=== PATIENT | female | born 1945 | race Asian ===

== ENCOUNTER 2024-09-30 23:17 | Inpatient (IN) | payer MEDICARE, SELFPAY ==
[2024-09-30] VITALS (7 sets, daily range): BP systolic 100–150; BP diastolic 56–85
[2024-09-30] MEDS: MORPHINE SULFATE 2 MG IV (21:24)
[2024-09-30 21:27] LABS: % Basophils 0.2 % (0-2); % Eosinophils 1.5 % (0-6); % Immature Granulocytes 0.2 % (0-0.5); % Lymphocytes 34.8 % (20.5-51.1); % Monocytes 7.9 % (1.7-9.3); % Neutrophils 55.4 % (42.2-75.2); Absolute Eosinophils 0.1 10^3/uL (0-0.7); Absolute Lymphocytes 1.7 10^3/uL (1.2-3.4); Absolute Monocytes 0.4 10^3/uL (0.1-0.6); Absolute Neutrophils 2.7 10^3/uL (1.4-6.5); Hematocrit 29.6 % (37.0-47.0); Hemoglobin 9.8 g/dL (12.0-16.0); Mean Corp Hgb Conc. 33.1 g/dL (33.0-37.0); Mean Corpuscular Hgb 29.9 pg (27.0-31.0); Mean Corpuscular Volume 90.2 fL (81.0-99.0); Mean Platelet Volume 9.1 fL (7.4-10.4); Nucleated Red Blood Cells % 0 %; Platelet Count 188 10^3/uL (130-400); Red Blood Cell Count 3.28 10^6/uL (4.20-5.40); White Blood Cell Count 4.8 10^3/uL (4.8-10.8)
[2024-09-30] MEDS: ZOFRAN 4 MG IV (21:29)
[2024-09-30 21:37] LABS: APTT 31.5 Sec (23.4-35.0)
[2024-09-30 21:42] LABS: ALT (SGPT) 19 U/L (0-35); AST (SGOT) 54 U/L (14-36); Albumin 3.9 g/dl (3.5-5.0); Alkaline Phosphatase 70 U/L (38-126); Blood Urea Nitrogen 22 mg/dl (7-17); Carbon Dioxide 29 mmol/L (22-30); Chloride 102 mmol/L (98-107); Glucose 153 mg/dl (70-99); Potassium 3.9 mmol/L (3.5-5.1); Sodium 138 mmol/L (135-145); Total Bilirubin 0.4 mg/dl (0.2-1.3); Total Protein 6.8 g/dl (6.3-8.2); eGFR > 60.00
--- NOTE | 2024-09-30 21:55 | ED.GENMED ---
History of Present Illness
General
Chief Complaint: Chest Pain
Source: patient and family
Exam Limitations: none
Time Seen by Provider: 09/30/24 21:30
Nursing documentation reviewed up to this point in time: agreed with
History of Present Illness
History of Present Illness:
Late entry seen immediately upon presentation 79-year-old female via EMS presents with chest pain arnold juárez that started around dinnertime, EMS report to RN was that had a normal EKG but was given nitroglycerin, seen in our triage room, had an
EKG that showed ST segment elevation I evaluated the patient urgently, STEMI alert was called initially pain was 10 out of 10 EMS and given 325 of aspirin administered Brilinta and heparin, arnold Osorio acting as a junior project manager has been a lot of
stress in the family due to cancer diagnosis for Devon's mother the patient's daughter, the patient herself has a history of colorectal cancer status post resection
Past History
Past History
ED Past Medical History: HTN, Hypercholesterolemia and Other (oral CA)
ED Past Surgical History: Bowel resection
Patient has exhibited threatening behavior?: No
PSI?: No
Social History
Tobacco: Non-smoker
Alcohol: Other
Drug: None
Personal:
Living: with family
Employment: Retired
Family History
Family History: Other (HTN)
Review of Systems
Review of Systems
All Other Systems: Not applicable
Cardiac: Reports chest pain
Phy Exam
Physical Exam
Physical Exam:
Physical Exam
General: Ill-appearing female
Neck: No jaundice
Heart: s1/s2 regular rate and rhythm, no murmur. equal radial pulses.
Lungs: no acute respiratory distress. clear bilaterally
Abdomen: Nontender
Neuro: alert and oriented. no focal neurological deficits
Skin: no rash
Psychiatric: well kept. interactive and cooperative
Extremities: no edema.
Scores
Heart Score for Chest Pain Patients
STEMI patient?: Yes
Course
Orders/Labs/Results
Orders:
Orders
09/30/24 21:09
Electrocardiogram (*1) Urgent
Reason for Study: Chest Pain
Cardiac Monitoring- Treatment ONCE
EKG- Treatment ONCE
IV Insert/Care/Rem.- Treatment PRN
O2 Therapy [RESP] Urgent
Titrate/Wean O2 to maintain O2 sat greater than (%): 90
Special Instructions: Maintain sats >/=90%
Pulse Ox/spot Check [RESP] Urgent
Quantity: 1
Special Instructions: ON ROOM AIR
09/30/24 21:20
Complete Blood Count/With Diff Urgent
Comprehensive Metabolic Panel Urgent
Troponin I Urgent
09/30/24 21:22
PTT Urgent
09/30/24 21:23
Morphine Sulfate 2 mg .ROUTE .STK-MED ONE
09/30/24 21:24
Morphine Sulfate 2 mg IV NOW STA
09/30/24 21:27
Ondansetron Injectable [Zofran] 4 mg .ROUTE .STK-MED ONE
09/30/24 21:28
Ondansetron Injectable [Zofran] 4 mg IV NOW STA
09/30/24 21:36
Type And Crossmatch [Type+Screen] Urgent
09/30/24 21:38
Midazolam HCl [Versed] 2 mg .ROUTE .STK-MED ONE
Verapamil Injectable [Isoptin/Verapamil Injection] 5 mg .ROUTE .STK-MED ONE
09/30/24 21:39
Fentanyl Citrate/Pf [Sublimaze] 100 mcg .ROUTE .STK-MED ONE
Heparin 10,000 units .ROUTE .STK-MED ONE
Heparin 1000 Units/500 ml [Heparin] 1,000 units in 500 ml .ROUTE .STK-MED
Heparin Sodium,Porcine/Ns/Pf [Heparin 2000 Units/1000 ml] 2,000 unit in 1,000 ml .ROUTE .STK-MED
Lidocaine HCl/Pf [Xylocaine-Mpf 1% Vial] 50 mg .ROUTE .STK-MED ONE
09/30/24 21:40
Nitroglycerin [Tridil] 1,500 mcg .ROUTE .STK-MED ONE
Abnormal Lab Results
09/30/24
21:20
RBC 3.28 L 10^6/uL
(4.20-5.40)
Hgb 9.8 L g/dL
(12.0-16.0)
Hct 29.6 L %
(37.0-47.0)
BUN 22 H mg/dl
(7-17)
Glucose 153 H mg/dl
(70-99)
AST 54 H U/L
(14-36)
Troponin I 1.540 H* ng/ml
09/30/24 21:20
09/30/24 21:20
Vital Signs
Initial and Last Documented VS:
Initial Vital Signs
Temp Pulse Resp BP Pulse Ox
97.5 F 66 16 149/85 97
09/30/24 21:01 09/30/24 21:01 09/30/24 21:01 09/30/24 21:01 09/30/24 21:01
Last Documented Vital Signs
Temp Pulse Resp BP Pulse Ox
97.5 F 64 21 140/67 100
09/30/24 21:01 09/30/24 21:30 09/30/24 21:30 09/30/24 21:30 09/30/24 21:30
MDM/Problems Addressed
Differential Diagnosis Includes:
TN, stress-induced angina, LV aneurysm
*Pulse Oximetry
Patient hypoxic: no
*EKG
Interpreted by ED Provider?: Yes
Interpretation: abnormal
Comparison EKG: no comparison EKG present
Heart Rate: 70
Rate: normal
Rhythm: sinus
Ischemia: ST elevation
*Mophead Trimmer And Wrapper Interpretation
Rate: normal
Interpretation: normal
Heart Rate: 70
Rhythm: sinus
*Critical Care Note
Total Time (30-74mins, 75-104mins- exclusive of procedures): 30
ED Attending Note
-
Portions of this chart may have been created with voice recognition software.� Occasional wrong word or��sound alike� substitutions may have occurred due to the inherent limitations of voice recognition software.
Discharge Plan
Departure
Prescriptions:
No Action
atorvastatin [Lipitor] 40 mg Tablet
40 mg PO DAILY
losartan 50 mg Tablet
50 mg PO DAILY Qty: 30 0RF
Referrals:
UNKNOWN - PT NOT,INTERVIEWE [Family Provider] -
Interventions
Interventions:
*Risk Screen - Suicide Last Done: 09/30/24 21:01
*General Assessment Last Done: 09/30/24 21:01
*Neglect/Abuse Screening Last Done: 09/30/24 21:01
*ED COVID-19 Vaccine History Last Done: 09/30/24 21:01
ED- Cardiac Assessment Last Done: 09/30/24 21:27
Discharge Date and Time
Print Language: UPPER SORBIAN
[2024-09-30 22:03] LABS: ACT-LR - POC 207 Seconds (116-155)
[2024-09-30 22:12] LABS: ACT-LR - POC 303 Seconds (116-155)
[2024-09-30 22:23] LABS: ACT-LR - POC 287 Seconds (116-155)
[2024-09-30 22:47] LABS: ACT-LR - POC 334 Seconds (116-155)
[2024-09-30 22:57] LABS: ACT-LR - POC 292 Seconds (116-155)
--- NOTE | 2024-09-30 23:11 | ITS.CL.CATH ---
Braiding Machine Tender - Catheterization
Cardiac Catheterization
Procedure Report:
LEFT HEART CATHETERIZATION
Date of Procedure: September 30, 2024
Referring: [place] emergency department
PROCEDURES:
1. Left heart catheterization, coronary angiogram.
2. Ultrasound-guided access.
3. Successful percutaneous coronary artery intervention of 2 serial 80 to 90% hazy stenoses in mid and distal OM2 (MARY II flow) with one 3.0 x 38 mm Medtronic Marcelo frontier drug-eluting stent, postdilated with a 3.0 x 20 mm NC balloon at 16 reddy
distally and 18 reddy proximally with an excellent angiographic result and MARY-3 flow restored into the distal vessel.
INDICATION: Patient is a 79-year-old Faroese speaking female with past medical history of hypertension, hyperlipidemia, prior history of transverse colon mass with admission in October 2023 with symptomatic microcytic anemia and acute blood loss
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
adenocarcinoma who presents today with acute onset chest pain after dinner found to have inferior ST elevations with ST depressions in V1 and V2 for which heart catheterization team was emergently activated. Patient received 2 sublingual
nitroglycerin, 325 mg of aspirin, 180 mg of Brilinta and 4000 units of unfractionated IV heparin in the emergency department prior to presentation up to the heart catheterization lab. Her daughter was recently diagnosed with stomach and bladder
cancer and is undergoing treatments for this and therefore patient has been under tremendous amount of stress and presents here today with her grand son. Emergent consent was obtained reviewing the risk and benefits of the procedure and patient was
emergently brought up to the heart catheterization lab.
ACCESS: Right radial artery, 6 Cameroonian sheath, under ultrasound guidance.
HEMODYNAMICS : (mmHg)
AO (s/d) : 120/64
LV (s/d) : 121/13
LVEDP : 28
CORONARY FINDINGS: Heavily calcified coronary arteries.
DOMINANCE: Right
LEFT MAIN: Left main artery is a large-caliber vessel with 30 to 40% distal tapering giving rise to the LAD as well as the left circumflex artery.
LEFT ANTERIOR DESCENDING: The LAD is a medium to large caliber vessel which gives rise to 3 major diagonal branches as it courses through the anterior interventricular groove and wraps around the apex. Ostial LAD has an eccentric 70% stenosis.
Mid LAD has calcified diffuse up to 70 to 80% stenosis at the level of the takeoff of D2. D2 has a 99% ostial stenosis with probable chronic total occlusion in the proximal portion with left to left collaterals but is a small caliber vessel.
CIRCUMFLEX: The left circumflex artery is a medium caliber vessel which gives rise to 2 major obtuse marginal branches. OM1 is a small caliber branch. OM 2 is a large-caliber branch with 2 serial hazy, thrombotic 80 to 90% stenosis with MARY II
flow which is thought to be the culprit of presenting ACS. There is 50 to 60% eccentric ostial left circumflex artery stenosis.
RIGHT CORONARY ARTERY: The right coronary artery is a medium to large caliber vessel, dominant which gives rise to the right posterior descending artery and the right posterolateral system. There is mild to moderate diffuse plaque in the proximal
to mid RCA.
CORONARY INTERVENTION: Given significant disease involving the ostial LAD and the left circumflex, discussion was had with senior interventional partner, Dr. Reginald Porter as well as CT surgeon on-call, Dr. John Torrez about patient's presenting
symptoms and past medical history including significant frailty with advanced age. We did not think that patient would be a good candidate for consideration for CABG and therefore decision was made to proceed with percutaneous coronary artery
intervention to mid and distal OM 2 which were thought to be the culprit lesions for presenting ACS. Additional heparin was given to maintain a therapeutic ACT throughout the case. The left coronary artery was selectively engaged using a 6 Cameroonian
EBU 3.5 guide catheter. A 190 cm 0.014' run-through coronary wire was utilized and carefully navigated across these 2 lesions into the distal vessel. The lesions were predilated using a 2.5 x 15 mm semicompliant balloon using multiple inflations
with good expansion at 14 reddy. The lesions were then subsequently stented with one 3.0 x 38 mm Medtronic Marcelo frontier drug-eluting stent, postdilated with a 3.0 x 20 mm NC balloon at 16 reddy distally and 18 reddy proximally with an excellent
angiographic result and MARY-3 flow restored into the distal vessel. Patient tolerated the procedure well with no acute complications. She had already received 180 mg of Brilinta in the emergency department.
SEDATION: 58 minutes of procedural sedation was utilized. An independent clinical medical transcriptionist was present to assist with and help manage the patient's level of consciousness and physiologic status.
RADIATION SUMMARY: Fluoro Time (min): 6.8, Dose (mGy): 214.05, DAP (Gy.cm2) : 1.276
Closure Device: Vascular band over right radial artery, 10 cc of air.
CONCLUSIONS
1. Heavily calcified left-sided coronary arteries.
2. Successful percutaneous coronary artery intervention of 2 serial 80 to 90% hazy stenoses in mid and distal OM2 (MARY II flow) with one 3.0 x 38 mm Medtronic [place] frontier drug-eluting stent, postdilated with a 3.0 x 20 mm NC balloon at 16 reddy
distally and 18 reddy proximally with an excellent angiographic result and MARY-3 flow restored into the distal vessel.
3. Ostial LAD has an eccentric 70% stenosis. Mid LAD has calcified diffuse up to 70 to 80% stenosis at the level of the takeoff of D2. D2 has a 99% ostial stenosis with probable chronic total occlusion in the proximal portion with left to left
collaterals but is a small caliber vessel.
4. There is 50 to 60% eccentric ostial left circumflex artery stenosis.
5. Significantly elevated LVEDP at 28 mmHg.
RECOMMENDATIONS
1. Dual antiplatelet therapy with daily baby aspirin and Brilinta 90 mg twice daily, high intensity statin and beta-benoit as tolerated.
2. Wean radial band per protocol.
3. Echocardiogram to assess biventricular function and rule out any significant valvular abnormalities.
4. Aggressive management of cardiovascular risk factors.
5. Referral for outpatient cardiac rehab
6. We will have CT surgery weigh in if patient would be a candidate for a robotic GUILLEN to LAD to achieve full revascularization in the near future versus medical therapy only.
Esha Collins MD, FACC, [facility]
--- NOTE | 2024-09-30 23:25 | HPS.HSE ---
Family Physician
-
Family Physician: INTERVIEWE UNKNOWN - PT NOT
Chief Complaint
-
Chest Pain
History of Present Illness
Patient is a 79-year-old Belarusian speaking female with past medical history of hypertension, hyperlipidemia, prior history of transverse colon mass with admission in October 2023 with symptomatic microcytic anemia and acute blood loss anemia thought
to be secondary to a GI source from this mass needing 5 units of PRBC transfusion status post robotic extended right colectomy with isoperistaltic intracorporeal anastomosis with path report subsequently positive for invasive colonic adenocarcinoma
who presents today with acute onset chest pain after dinner found to have inferior ST elevations with ST depressions in V1 and V2 for which heart catheterization team was emergently activated. Patient received 2 sublingual nitroglycerin, 325 mg of
aspirin, 180 mg of Brilinta and 4000 units of unfractionated IV heparin in the emergency department prior to presentation up to the heart catheterization lab. Her daughter was recently diagnosed with stomach and bladder cancer and is undergoing
treatments for this and therefore patient has been under tremendous amount of stress and presents here today with her grand son. Emergent consent was obtained reviewing the risk and benefits of the procedure and patient was emergently brought up to
the heart catheterization lab.
Medical History
Past Medical History
Past Medical History: Reports Cancer, HTN and Hypercholesterolemia
Past Surgical History: Reports Other (colectomy)
Additional Past Surgical History:
colectomy
Social History
Unable to obtain full social history at this time due to: Language Barrier
Tobacco: Non-smoker
Alcohol: None
Drug: None
Personal:
Living: With Family
Employment: Retired
Family History
Family History: Not pertinent
Allergies / Home Medications
Allergies reflects when Allergies were last updated in [employer].
Home Medications with original date entered in [employer]
Allergy/Medication List:
NKDA
Telmisartan-HCTZ 40-12.5mg daily
Atorvastatin 40mg daily
Review of Systems
-
A 12 point ROS was completed and negative except as noted: Yes
Physical Exam
Vital Signs
Vital Signs
Temp Pulse Resp BP Pulse Ox
97.5 F 68 26 136/74 96
09/30/24 21:01 09/30/24 21:45 09/30/24 21:45 09/30/24 21:36 09/30/24 21:45
Physical Exam
General: Well Developed, Appears Chronically Ill, Cachectic and Other (Thin, frail, pale)
HEENT: Moist mucous membranes
Respiratory: Rales and Decreased Breath Sounds
Cardiac: S1/S2, Regular Rhythm, JVD and HJR; No Murmur, Rub, Gallop or Peripheral Edema
GI: Soft, Non Tender, Non Distended and Normal Bowel Sounds
Genito-urinary: Deferred by me
Musculoskeletal: No Clubbing, No Cyanosis and No Edema
Skin: Warm and Dry
Neuro: AO x 3 and Other (Nauseated)
Psych: Calm and Anxious
Laboratory Results
-
09/30/24 21:20
09/30/24 21:20
Laboratory Results
APTT 31.5 Sec (23.4-35.0) 09/30/24 21:22
Total Bilirubin 0.4 mg/dl (0.2-1.3) 09/30/24 21:20
AST 54 U/L (14-36) H 09/30/24 21:20
ALT 19 U/L (0-35) 09/30/24 21:20
Alkaline Phosphatase 70 U/L (38-126) 09/30/24 21:20
Troponin I 1.540 ng/ml H* 09/30/24 21:20
Data Reviewed
-
Critical Care Time (in minutes): 65
Diagnostic Radiology: Report Reviewed by me
CT Scan: Report Reviewed by me
Ultrasound: Report Reviewed by me
Medical Tests (Nuc Med, Echo, EKG etc): Image Personally Visualized and interpreted
Lab Data: Labs Reviewed by me, Discussed with Physician, Discussed with Nurse, Discussed with Patient and Discussed with Family
Old Records: Reviewed
Impression/Plan
-
IMPRESSION: Patient is a 79-year-old Belarusian speaking female with past medical history of hypertension, hyperlipidemia, prior history of transverse colon mass with admission in October 2023 with symptomatic microcytic anemia and acute blood loss
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
adenocarcinoma who presents today with acute onset chest pain after dinner found to have inferior ST elevations with ST depressions in V1 and V2
Assessment:
Hypertension
Hyperlipidemia
transverse colon mass, status post robotic extended right colectomy with isoperistaltic intracorporeal anastomosis with path report subsequently positive for invasive colonic adenocarcinoma
Acute blood loss anemia thought to be secondary from GI source, 5u pRBC transfusion
Hyponatremia
Influenza A in Oct 2023 s/p Tamiflu
Mild protein calorie malnutrition
CATH 09/30/24
1. Heavily calcified left-sided coronary arteries.
2. Successful percutaneous coronary artery intervention of 2 serial 80 to 90% hazy stenoses in mid and distal OM2 (MARY II flow) with one 3.0 x 38 mm Medtronic Marcelo frontier drug-eluting stent, postdilated with a 3.0 x 20 mm NC balloon at 16 reddy
distally and 18 reddy proximally with an excellent angiographic result and MARY-3 flow restored into the distal vessel.
3. Ostial LAD has an eccentric 70% stenosis. Mid LAD has calcified diffuse up to 70 to 80% stenosis at the level of the takeoff of D2. D2 has a 99% ostial stenosis with probable chronic total occlusion in the proximal portion with left to left
collaterals but is a small caliber vessel.
4. There is 50 to 60% eccentric ostial left circumflex artery stenosis.
5. Significantly elevated LVEDP at 28 mmHg.
PLAN:
1. Dual antiplatelet therapy with daily baby aspirin and Brilinta 90 mg twice daily, high intensity statin and beta-benoit as tolerated.
2. Wean radial band per protocol.
3. Echocardiogram to assess biventricular function and rule out any significant valvular abnormalities.
4. Aggressive management of cardiovascular risk factors.
5. Referral for outpatient cardiac rehab
[2024-09-30] MEDS: CRESTOR 20 MG PO (23:48)
[2024-10-01] VITALS (10 sets, daily range): BP systolic 96–120; BP diastolic 54–72; BMI 18.5; BMI 18.3
--- NOTE | 2024-10-01 00:40 | PTCARENOTE ---
Pt received from labor utilization superintendent R radial band in place. SB/SR on the monitor 40s-60s. Pt speaks Turkmen- Grandson Devon at bedside to help with translation as well as the language line. No active CP at this time reported by pt. Plan of care discussed pt
verbalized understanding. ambulating as a stand by assist to the bathroom. Call cooper within reach.
--- NOTE | 2024-10-01 05:29 | PTCARENOTE ---
band off after some oozing noted during the air removal process- air replaced and continued removal without issues. + pulse. Site CDI with ecchy. Pt and grandson made aware this is normal discoloration.
[2024-10-01 05:37] LABS: % Basophils 0.2 % (0-2); % Eosinophils 0.5 % (0-6); % Immature Granulocytes 0.3 % (0-0.5); % Lymphocytes 6.4 % (20.5-51.1); % Monocytes 4.5 % (1.7-9.3); % Neutrophils 88.1 % (42.2-75.2); Absolute Lymphocytes 0.4 10^3/uL (1.2-3.4); Absolute Monocytes 0.3 10^3/uL (0.1-0.6); Absolute Neutrophils 5.6 10^3/uL (1.4-6.5); Mean Corp Hgb Conc. 33.3 g/dL (33.0-37.0); Mean Corpuscular Volume 90.1 fL (81.0-99.0); Mean Platelet Volume 9.5 fL (7.4-10.4); Nucleated Red Blood Cells % 0 %; Platelet Count 171 10^3/uL (130-400); Red Blood Cell Count 3.33 10^6/uL (4.20-5.40); White Blood Cell Count 6.4 10^3/uL (4.8-10.8)
[2024-10-01 05:49] LABS: Blood Urea Nitrogen 19 mg/dl (7-17); Calcium 8.6 mg/dl (8.4-10.2); Carbon Dioxide 29 mmol/L (22-30); Chloride 103 mmol/L (98-107); Estimated Creatinine Clearance 41 ml/min; Glucose 111 mg/dl (70-99); HDL Cholesterol 51 mg/dl; LDL Cholesterol, Calculated 57 mg/dl; Potassium 3.4 mmol/L (3.5-5.1); Sodium 140 mmol/L (135-145); Total Cholesterol 123 mg/dl (50-199); Triglyceride 76 mg/dl (10-149); Very Low Density Lipoprotein 15 mg/dl (0-30); eGFR > 60.00
[2024-10-01] MEDS: KCL 40 MEQ PO (08:10)
[2024-10-01] MEDS: LOW STRENGTH ASPIRIN 81 MG PO (08:10)
[2024-10-01] MEDS: BRILINTA 90 MG PO ×2 (08:11→19:49)
[2024-10-01] MEDS: HEPARIN 5000 UNITS SC ×2 (08:11→19:49)
[2024-10-01 08:27] LABS: Glycohemoglobin (HgbA1c) 5.5 % (4.0-5.6)
--- NOTE | 2024-10-01 09:10 | W.PN.CARDCBS ---
Addendum entered and electronically signed by Esha Collins MD 10/01/24 15:41:
I saw and examined the patient.
The Product Safety Engineer's note was reviewed and I agree with the note.
Comment: Patient is doing well this morning and does not offer any complaints. No further chest pain.
Vital signs and lab work reviewed. On exam patient is elderly, frail and cachectic, Lungs CTAB, normal S1 and S2, no murmurs, rubs or gallops, abdomen soft, nontender, nondistended with active bowel sounds, warm extremities, right radial access
site is dressed with dressing which is clean, dry and intact with no evidence of hematoma or bruit
Troponins are still slowly uptrending. Echocardiogram with LVEF of 60 to 65%, moderate MR
Recommendations:
1. Uninterrupted dual antiplatelet therapy with daily baby aspirin and Brilinta 90 mg twice daily, high intensity statin. We will try low-dose beta-benoit today with close monitoring of hemodynamics. Home telmisartan/HCTZ combination still on
hold given borderline blood pressures.
2. Blood pressures allow we will work on getting home medications restarted.
3. For now plan to medically manage residual coronary artery disease and work towards getting patient safely discharged.
4. Continue to monitor for another at least 24 hours on telemetry.
5. Outpatient cardiac rehab once stable for discharge.
Insert segment
Original Note:
Today's Communication / Plan
-
trend troponin to peak
echo today
monitor BP/HR- add BB, ARB as tolerated
cardiac rehab
Impression / Plan
-
PCP: Esau Metzger DO
CDY: Esha Collins MD (none prior to admission)
79 y/o Greenlandic female, PMH sig for HTN, HLD, invasive colon adenocarcinoma with acute blood loss anemia s/p multiple transfusions and robotic right colectomy (10/2023). She is not undergoing adjuvant chemotherapy, although it was offered at the time
of surgery.
Presented to ER after acute onset chest pain after dinner. Initial EKG with inferior ST elevations, ST dep V1-V2. Loaded with aspirin, brilinta, heparin, and brought urgently to cath lab radiological technologist.
Cath revealed significant heavily calcified left-sided coronary arteries. After discussion with Drs. Torrez and German, she was felt not to be a good candidate for CABG, and ultimately underwent angioplasty/MILLI to mid/dist OM2, which was thought to be
the culprit lesion.
C 09/30- sig elevated LVEDP 28
distal LM 30-40%
ostial LAD 70%, mid LAD calcified 70-80% at D2
ostial D2 99% with proximal [employer] OFFICER, w/L-L collaterals
ostial LCx 50-60%
mid-distal OM2 w/2 serial hazy thrombotic 80-90%- s/p angioplasty/MILLI
IMPRESSION:
Acute inferior STEMI
s/p Angioplasty/MILLI- mid/distal OM2
Residual heavily calcified LAD, D2, LCx- medical management
HTN
HLD
Invasive Colon adenocarcinoma, s/p R colectomy (10/2023)
Acute blood loss anemia thought to be secondary from GI source, 5u pRBC transfusion (10/2023)
Microcytic anemia
Influenza A in Oct 2023 s/p Tamiflu
Language barrier
PLAN:
Tele- SB/SR 50-60s, no VT/arrhythmia- holding BB for now
Right radial cath site stable
Troponin 5.95 and rising- trend to peak
DAPT w/asa, brilinta- CM checking cost
Soft BP overnight- holding losartan and will monitor
Lipid profile noted- continue statin therapy
Echocardiogram today
Cardiac rehab consult
Residual CAD- will aggressively medically manage, if continued cp/unstable angina would bring back to lab for further revascularization
Hgb 10- at baseline and stable today post cath
Hypokalemia- replaced and check in AM
Followup at [facility] as scheduled
Continue to monitor on tele for another 24-48h
Progress Note - Supplemental Manager
Subjective
Date of Service: October 01, 2024
Denies cp/palps/dyspnea
resting in bed
cath site without pain
language barrier noted- son at bs and interpreting
Objective
Labs:
10/01/24 05:15
10/01/24 05:15
Labs
Hgb 10.0 g/dL (12.0-16.0) L 10/01/24 05:15
Hct 30.0 % (37.0-47.0) L 10/01/24 05:15
Plt Count 171 10^3/uL (130-400) 10/01/24 05:15
APTT 31.5 Sec (23.4-35.0) 09/30/24 21:22
Sodium 140 mmol/L (135-145) 10/01/24 05:15
Potassium 3.4 mmol/L (3.5-5.1) L 10/01/24 05:15
BUN 19 mg/dl (7-17) H 10/01/24 05:15
Creatinine 0.8 mg/dL (0.6-1.0) 10/01/24 05:15
Glucose 111 mg/dl (70-99) H 10/01/24 05:15
Troponins
09/30/24 09/30/24 10/01/24
21:20 23:43 05:15
Troponin I 1.540 H* 2.470 H* D 5.950 H* D
Vital Signs and I&O:
Vital Signs
Temp Pulse Resp BP Pulse Ox
98.0 F 72 18 104/67 96
10/01/24 08:09 10/01/24 05:15 10/01/24 08:09 10/01/24 05:01 10/01/24 08:09
Vital Signs
Temp Pulse Resp BP Pulse Ox
98.0 F 72 18 104/67 96
10/01/24 08:09 10/01/24 05:15 10/01/24 08:09 10/01/24 05:01 10/01/24 08:09
Intake & Output
09/29/24 09/30/24 10/01/24 10/02/24
06:59 06:59 06:59 06:59
Intake Total 620 / 620
Balance 620 / 620
Physical Exam
Physical Exam
AAOx3, MAEE 5/5
RRR S1 S2 soft 1/6 murmur at base
CTA bilat, non labored
soft abd, + bs
right radial cath site without ht/bleeding, non tender
bilat extremities w/palpable distal pulses, no edema
--- NOTE | 2024-10-01 10:09 | CM ---
Pricing on Brilinta through the patient's [employer] Prescription Plan is a $ 0 copay and it is in stock at her [facility]
--- NOTE | 2024-10-01 11:35 | CARDSERVLU ---
Echocardiogram with Lumason completed after protocol screening completed. Allergies verified.
Patent IV site: __L AC___
IV site flushed with 0.9% NaCl pre and post administration.
Diluted bolus method utilized to enhance visualization of ventricular madden.
Total volume given: _2.5__ mL
Patient tolerated all procedures well without complications.
--- NOTE | 2024-10-01 11:55 | CM ---
Chart reviewed. Patient is independent of ADLS, lives with her daughter, SONA and grandson in a [address], 1 [address], 0 DME. Plan is for the patient to return home. CM to follow
[2024-10-01] MEDS: TOPROL XL 12.5 MG PO (15:32)
--- NOTE | 2024-10-01 15:51 | PTCARENOTE ---
Pt AOx3, no complaints of pain or discomfort. Pashto speaking, language line utilized. VSS, SR on tele monitor. Standby assist OOB. Pt had ECHO done today. Call cooper within reach.
[2024-10-01] MEDS: LIPITOR 40 MG PO (17:19)
--- NOTE | 2024-10-02 00:31 | PTCARENOTE ---
Pt AAOx3 + Language line in the room. SR on the monitor VSS Rt radial cath site dressing c/d/i + ecchymosis. Call cooper within reach.
[2024-10-02 04:03] VITALS: BP 112/60
[2024-10-02 04:32] VITALS: BMI 17.9
[2024-10-02 04:47] LABS: Hematocrit 31.2 % (37.0-47.0); Hemoglobin 10.1 g/dL (12.0-16.0); Mean Corp Hgb Conc. 32.4 g/dL (33.0-37.0); Mean Corpuscular Hgb 29.7 pg (27.0-31.0); Mean Corpuscular Volume 91.8 fL (81.0-99.0); Mean Platelet Volume 9.5 fL (7.4-10.4); Platelet Count 178 10^3/uL (130-400); White Blood Cell Count 3.2 10^3/uL (4.8-10.8)
[2024-10-02 05:03] LABS: Blood Urea Nitrogen 16 mg/dl (7-17); Calcium 8.7 mg/dl (8.4-10.2); Carbon Dioxide 28 mmol/L (22-30); Chloride 105 mmol/L (98-107); Estimated Creatinine Clearance 31 ml/min; Glucose 94 mg/dl (70-99); Potassium 3.9 mmol/L (3.5-5.1); Sodium 140 mmol/L (135-145); eGFR 56.95
[2024-10-02 07:57] VITALS: BP 126/69
[2024-10-02] MEDS: TOPROL XL 25 MG PO (08:22)
[2024-10-02] MEDS: BRILINTA 90 MG PO (08:22)
[2024-10-02] MEDS: HEPARIN 5000 UNITS SC (08:22)
[2024-10-02] MEDS: LOW STRENGTH ASPIRIN 81 MG PO (08:22)
--- NOTE | 2024-10-02 09:36 | W.PN.CARDCBS ---
Addendum entered and electronically signed by Reginald Cheung MD 10/02/24 12:38:
79-year-old woman with hypertension, hyperlipidemia, history of colon cancer admitted with inferior ST segment elevation myocardial infarction, status post PCI to OM 2
PMH/PSH/SH/FH: Reviewed
Allergies: Reviewed
Medications reviewed
116/68, pulse 70, respiratory 20, afebrile,, petite, no distress, head neck exam unremarkable, lungs are clear regular rate and rhythm, no obvious murmurs, right wrist intact no edema
EKG today sinus rhythm, nonspecific inferior T wave changes, and V6, hemoglobin 10.1, troponin is 4.9, peak troponin had been 6.5, creatinine is 1
Impression:
See below
Plan:
Okay for discharge
Original Note:
Today's Communication / Plan
-
post [place], stable for d/c home today
Impression / Plan
-
PCP: Esau Metzger DO
CDY: Esha Collins MD (none prior to admission)
79 y/o Slovak female, PMH sig for HTN, HLD, invasive colon adenocarcinoma with acute blood loss anemia s/p multiple transfusions and robotic right colectomy (10/2023). She is not undergoing adjuvant chemotherapy, although it was offered at the time
of surgery.
Presented to ER after acute onset chest pain after dinner. Initial EKG with inferior ST elevations, ST dep V1-V2. Loaded with aspirin, brilinta, heparin, and brought urgently to earthmoving labourer.
Cath revealed significant heavily calcified left-sided coronary arteries. After discussion with Drs. Torrez and German, she was felt not to be a good candidate for CABG, and ultimately underwent angioplasty/MILLI to mid/dist OM2, which was thought to be
the culprit lesion.
[facility] 09/30- sig elevated LVEDP 28
distal LM 30-40%
ostial LAD 70%, mid LAD calcified 70-80% at D2
ostial D2 99% with proximal WALLPAPER PRINTER HELPER, w/L-L collaterals
ostial LCx 50-60%
mid-distal OM2 w/2 serial hazy thrombotic 80-90%- s/p angioplasty/MILLI
IMPRESSION:
Acute inferior STEMI
s/p Angioplasty/MILLI- mid/distal OM2
Residual heavily calcified LAD, D2, LCx- medical management
HTN
HLD
Invasive Colon adenocarcinoma, s/p R colectomy (10/2023)
Acute blood loss anemia thought to be secondary from GI source, 5u pRBC transfusion (10/2023)
Microcytic anemia
Influenza A in Oct 2023 s/p Tamiflu
Language barrier
PLAN:
Tele- SR, no VT/arrhythmia
Right radial cath site stable
Troponin peaked 6.54
Echo NL EF, no WMA, moderate MR
continue DAPT w/asa, brilinta
BP improved, will resume home telmisartan/HCTZ tomorrow
Continue metoprolol succinate 25mg daily
Lipid profile noted- continue statin therapy
Cardiac rehab consult
Residual CAD- will aggressively medically manage, if continued cp/unstable angina would bring back to lab for further revascularization
Hgb 10- at baseline and stable today post cath
Hypokalemia- stable
Followup at [facility] as scheduled
stable for d/c home today
Progress Note - Chick Sexer
Subjective
Date of Service: October 02, 2024
denies cp, sob
Objective
Labs:
10/02/24 04:21
10/02/24 04:21
Labs
Hgb 10.1 g/dL (12.0-16.0) L 10/02/24 04:21
Hct 31.2 % (37.0-47.0) L 10/02/24 04:21
Plt Count 178 10^3/uL (130-400) 10/02/24 04:21
APTT 31.5 Sec (23.4-35.0) 09/30/24 21:22
Sodium 140 mmol/L (135-145) 10/02/24 04:21
Potassium 3.9 mmol/L (3.5-5.1) 10/02/24 04:21
BUN 16 mg/dl (7-17) 10/02/24 04:21
Creatinine 1.0 mg/dL (0.6-1.0) 10/02/24 04:21
Glucose 94 mg/dl (70-99) 10/02/24 04:21
Troponins
09/30/24 09/30/24 10/01/24
21:20 23:43 05:15
Troponin I 1.540 H* 2.470 H* D 5.950 H* D
10/01/24 10/01/24 10/02/24
12:24 17:58 04:21
Troponin I 6.540 H* 6.310 H* 4.940 H*
Vital Signs and I&O:
Vital Signs
Temp Pulse Resp BP Pulse Ox
98.4 F 70 20 126/69 96
10/02/24 07:55 10/02/24 08:22 10/02/24 07:55 10/02/24 08:22 10/02/24 08:12
Vital Signs
Temp Pulse Resp BP Pulse Ox
98.4 F 70 20 126/69 96
10/02/24 07:55 10/02/24 08:22 10/02/24 07:55 10/02/24 08:22 10/02/24 08:12
Intake & Output
09/30/24 10/01/24 10/02/24 10/03/24
06:59 06:59 06:59 06:59
Intake Total 620 / 620
Balance 620 / 620
Physical Exam
Physical Exam
NAD< AOX3
S1,S2, RRR
CTAB, non labored
SNTND Bsx4
R rad site good pulse, mild ecchymosis
[2024-10-02 10:53] VITALS: BP 116/68
--- NOTE | 2024-10-02 12:40 | W.DS.TRANS ---
DC Summary - Time Motion Analyst
-
Discharge Instructions:
Discharge Diagnosis/Procedures STEMI, s/p angioplasty and stent to Obtuse
Marginal artery
Diet Low Cholesterol
Driving Restrictions No driving for 24 hours
Other Services Cardiac Rehab
Instructions:
Stand-Alone Forms: DC Instructions- Cath/EP Lab
Changes to Home Medications: Yes
Discharge Medications:
DC Medications w/original date entered in [employer]changery
atorvastatin 40 mg tablet (Lipitor) 40 mg PO QPM High Cholesterol 10/15/23
telmisartan 40 mg-hydrochlorothiazide 12.5 mg tablet 1 tab PO DAILY 10/01/24
ticagrelor 90 mg tablet (Brilinta) 90 mg PO BID #180 tabs 10/01/24
aspirin 81 mg chewable tablet 81 mg PO DAILY #1 tab 10/02/24
metoprolol succinate 25 mg tablet,extended release 24 hr 25 mg PO DAILY #90 tabs 10/02/24
Home Medication Changes
Pending Results: No
Total time spent discharging patient (in min): 35
--- NOTE | 2024-10-02 13:28 | PTCARENOTE ---
Pt seen by Halima Morse NP and . Pt walking without problem around unit. Telemetry and IV device removed. Discharge instructions reviewed with pt and her son regarding medications, activity guidelines, wound care, reporting cares and concerns
and follow up appt's. All communicated via language line, good understanding demonstrated. Pt escorted out via wheelchair and discharged to home.
== END 2024-10-02 13:30 | disposition home or self-care (01) | DRG 322 ==
LOC: IVU 23:17
PROVIDERS: Nurse Practitioner; ADMITTING PHYSICIAN Internal Medicine Interventional Cardiology; EMERGENCY PHYSICIAN Emergency Medicine
PROC: B2111ZZ Fluoroscopy of Multiple Coronary Arteries using Low Osmolar Contrast (ICD-10-PCS; 2024-09-30)
PROC: 027034Z Dilation of Coronary Artery, One Artery with Drug-eluting Intraluminal Device, Percutaneous Approach (ICD-10-PCS; 2024-09-30)
PROC: 4A023N7 Measurement of Cardiac Sampling and Pressure, Left Heart, Percutaneous Approach (ICD-10-PCS; 2024-09-30)
DX: I21.19 ST elevation (STEMI) myocardial infarction involving other coronary artery of inferior wall (principal); E44.1 Mild protein-calorie malnutrition; Z68.1 Body mass index [BMI] 19.9 or less, adult; I25.10 Atherosclerotic heart disease of native coronary artery without angina pectoris; I10 Essential (primary) hypertension; E78.00 Pure hypercholesterolemia, unspecified; Z85.048 Personal history of other malignant neoplasm of rectum, rectosigmoid junction, and anus; Z90.49 Acquired absence of other specified parts of digestive tract; D50.9 Iron deficiency anemia, unspecified; Z60.3 Acculturation difficulty; Z79.899 Other long term (current) drug therapy; Z85.819 Personal history of malignant neoplasm of unspecified site of lip, oral cavity, and pharynx; I34.0 Nonrheumatic mitral (valve) insufficiency; E87.6 Hypokalemia
CPT/HCPCS: 80048; 80053; 80061; 83036; 84484; 85025; 85027; 85347; 85730; 86850; 86900; 86901; 93005; 93306; 93458; 96374; 96375; 99152; 99153; 99291; C1725; C1874; C1894; C9606; J0153; Q9950; Q9967

== ENCOUNTER 2024-11-24 05:54 | Inpatient (IN) | payer MEDICARE, OTHER, SELFPAY ==
[2024-11-13 08:10] VITALS: BMI 18.4
[2024-11-13 09:03] LABS: % Basophils 0.4 % (0-2); % Eosinophils 1.5 % (0-6); % Immature Granulocytes 0.4 % (0-0.5); % Lymphocytes 16.9 % (20.5-51.1); % Neutrophils 72.8 % (42.2-75.2); Absolute Eosinophils 0.1 10^3/uL (0-0.7); Absolute Lymphocytes 0.9 10^3/uL (1.2-3.4); Absolute Monocytes 0.4 10^3/uL (0.1-0.6); Absolute Neutrophils 3.9 10^3/uL (1.4-6.5); Hematocrit 35.6 % (37.0-47.0); Hemoglobin 11.5 g/dL (12.0-16.0); Mean Corp Hgb Conc. 32.3 g/dL (33.0-37.0); Mean Corpuscular Hgb 29.5 pg (27.0-31.0); Mean Corpuscular Volume 91.3 fL (81.0-99.0); Mean Platelet Volume 9.5 fL (7.4-10.4); Nucleated Red Blood Cells % 0 %; Platelet Count 227 10^3/uL (130-400); Red Cell Dist. Width 12.8 % (11.5-14.5); White Blood Cell Count 5.4 10^3/uL (4.8-10.8)
[2024-11-13 09:08] LABS: Urine Albumin Negative (Neg - Trace); Urine Bilirubin Negative (Negative); Urine Character Clear (Clear); Urine Color Yellow; Urine Glucose Negative (Negative); Urine Ketone Negative (Negative); Urine Leukocyte Negative (Negative); Urine Nitrite Negative (Negative); Urine Occult Blood Negative (Negative); Urine Urobilinogen Negative (Neg - 1+); Urine pH 6.5 (5.0-9.0)
[2024-11-13 09:14] LABS: INR 0.87; PT 12.3 Sec (11.4-14.6)
[2024-11-13 09:15] LABS: ALT (SGPT) 14 U/L (0-35); AST (SGOT) 30 U/L (14-36); Albumin 4.5 g/dl (3.5-5.0); Alkaline Phosphatase 101 U/L (38-126); Blood Urea Nitrogen 17 mg/dl (7-17); Carbon Dioxide 30 mmol/L (22-30); Chloride 102 mmol/L (98-107); Direct Bilirubin 0.3 mg/dl (0.0-0.4); Glucose 96 mg/dl (70-99); Potassium 4.1 mmol/L (3.5-5.1); Sodium 141 mmol/L (135-145); Total Bilirubin 0.6 mg/dl (0.2-1.3); Total Protein 7.6 g/dl (6.3-8.2)
--- NOTE | 2024-11-13 10:17 | CM ---
Chart reviewed. Met with the patient and son in PAT. Patient is yi speaking, language line was used for PAT. Reviewed preoperative and postoperative instructions and restrictions, along with showering guidelines. Gave patient 2 soaps.
Patient is agreeable to a visit by CT Transitional RN. Patient is independent of ADLS, lives with her son in a [address] [facility], 2 [address], ambulates with a SPC for long distances. Plan is for the patient to return home with CT Transitional RN. CM to follow
[2024-11-13 10:24] LABS: APTT 31.2 Sec (23.4-35.0)
[2024-11-13 10:25] LABS: Glycohemoglobin (HgbA1c) 5.6 % (4.0-5.6)
[2024-11-13 11:22] LABS: Estimated Creatinine Clearance 36 ml/min; eGFR > 60.00
[2024-11-24] VITALS (20 sets, daily range): BP systolic 82–133; BP diastolic 46–75; BMI 17.9
[2024-11-24] MEDS: MAGNESIUM OXIDE 500 MG PO (06:29)
[2024-11-24] MEDS: LOPRESSOR 25 MG PO (06:29)
[2024-11-24] MEDS: PROTONIX 40 MG PO (06:29)
[2024-11-24] MEDS: BACTROBAN 2% OINTMENT 1 APPLIC NASAL ×2 (06:29→19:18)
--- NOTE | 2024-11-24 06:34 | W.CVOR.SURPR ---
CVOR Surgeon Immed Pre Op
-
I have examined this patient prior to performance of the scheduled procedure.
The patient's condition is unchanged from the time of the dictated/written History and
Physical and the patient is able to undergo the scheduled procedure.
RA MIDCAB
--- NOTE | 2024-11-24 06:52 | PTCARENOTE ---
admitted pt to 2. pt confirmed 2 CHG showers and NPO since midnight. Pt clipped, CHG given, admission questions and med rec. completed.
[2024-11-24 09:13] LABS: Urine Albumin Negative (Neg - Trace); Urine Bilirubin Negative (Negative); Urine Character Slightly Cloudy (Clear); Urine Color Yellow; Urine Glucose Negative (Negative); Urine Ketone Negative (Negative); Urine Leukocyte Negative (Negative); Urine Nitrite Negative (Negative); Urine Occult Blood 1+ (Negative); Urine Urobilinogen Negative (Neg - 1+)
[2024-11-24 09:21] LABS: ACT+ - POC 79 Seconds (82-134)
[2024-11-24 09:43] LABS: Urine Squamous Cell 0-2 /LPF (Few)
[2024-11-24 09:44] LABS: Urine Bacteria Few (Negative); Urine Red Blood Cell 0-2 /HPF (0-2); Urine White Cell 0-2 /HPF (0-5)
[2024-11-24 10:33] LABS: B.E. - POC 2.2 mmol/L; Glucose - POC 92 mg/dl (70-99); HCO3 - POC 26 mmol/L (21-28); Hematocrit - POC 29 % PCV (37-47); Hemodilution- POC No; Hemoglobin Calculated - POC 9.9; Ionized Calcium - POC 1.17 mmol/L (1.15-1.33); PCO2 - POC 39 mmHg (35-48); PO2 - POC 395 mmHg (83-108); Potassium - POC 3.4 mmol/L (3.5-5.1); Sodium - POC 141 mmol/L (136-145); Specimen Type - POC Arterial; pH - POC 7.44 (7.35-7.45)
[2024-11-24 10:40] LABS: ACT+ - POC 408 Seconds (82-134)
[2024-11-24 11:55] LABS: Glucose - POC 99 mg/dl (70-99); HCO3 - POC 26 mmol/L (21-28); Hematocrit - POC 26 % PCV (37-47); Hemodilution- POC No; Hemoglobin Calculated - POC 8.9; Ionized Calcium - POC 1.15 mmol/L (1.15-1.33); O2 Saturation %Calculated-POC 99.9 % (94-98); PCO2 - POC 44 mmHg (35-48); PO2 - POC 335 mmHg (83-108); Potassium - POC 3.5 mmol/L (3.5-5.1); Sodium - POC 140 mmol/L (136-145); Specimen Type - POC Arterial; pH - POC 7.38 (7.35-7.45)
[2024-11-24 11:56] LABS: ACT+ - POC 104 Seconds (82-134)
--- NOTE | 2024-11-24 12:09 | W.PN.CT.SURG ---
CT Surgery Operative Note
-
CARDIAC SURGERY OPERATIVE REPORT
Preoperative Diagnosis: Coronary Artery Disease with proximal LAD involvement and recent STEMI requiring stenting
Postoperative Diagnosis: Same
Procedure(s) Performed:
1. Robotic assisted MIDCAB (single-vessel bypass GUILLEN in situ to LAD)
2. Robotic assisted harvest of internal mammary artery with anterolateral mini thoracotomy for CABG
3. Transesophageal echocardiography
4. Transonic Flowprobe assessment of GUILLEN graft
Date of Surgery: 11/24/2024
Comorbidities:
1. Coronary artery disease involving the proximal LAD
2. STEMI status post stenting
3. History of colon cancer status post colectomy
4. Hypertension
5. Hyperlipidemia
6. History of salivary gland cancer
7. Underweight BMI under 18
Attending Surgeon: John Torrez MD, MS
Assistants: Desiree Blue PA-C (present and necessary to internet marketing assistant, exchanging robotic instruments, retraction, suction, exposure, suture management, and wound closure under my direction)
Anesthesiology: Kings Crouch MD and Carlotta Chadwick CRNA
Scrub and Circulating RNs: Ryana Cardona RN, Qasim Varghese RN
Field Technical Assistant: Rosina Vasquez CCP
Anesthesia: GETA
EBL: per perfusion records
Products: None
Indication(s) for Procedures: This is a 79-year-old female who was recently admitted with a STEMI. Her culprit vessel was identified and stented. She is also found to have multivessel coronary disease involving the proximal LAD. Given her age,
multidisciplinary team discussion was to pursue stenting to her culprit vessel, let her recover for over 30 days with DAPT therapy and the bring her back for a robot-assisted MIDCAB to the LAD. The STS risk was discussed with the patient in the
office and the shared decision making was to pursue a single-vessel bypass using his mammary artery to his LAD via a mini invasive approach.
Conduit(s) Quality/Internal Diameter:
GUILLEN -excellent, flow probe analysis, mean flow of 14-15 cc/min, PI of below 5
Target(s) Quality/Internal Diameter:
LAD -good, accommodated 2.0 mm shunt, tissue surrounding the LAD was quite fragile
Findings: Her left ventricular ejection fraction was normal preoperatively and remained normal postoperatively. There were no regional wall motion abnormalities noted on transesophageal echocardiography. There were no new regional wall motion
abnormalities at the inclusion of the case. The GUILLEN was harvested in a pedicle fashion. The mammary graft was verified with Doppler probe to have excellent signals. And verified with Transonic flow probe.
Description of Procedure: The patient was taken to the operating room. Their identity and procedure to be performed were verified and they were positioned supine on the operating table. Induction via general anesthesia with endotracheal intubation
was performed and central venous access and arterial monitoring were inserted. A preoperative transesophageal echocardiogram was performed to assess cardiac function and valvular function. The patient was then prepped and draped from chin to feet in
a sterile fashion and positioned with left side bumped up and left arm down. A preoperative time-out was performed with all members of the team present. A Veress needle was used to enter the chest after stopping ventilation with the left lung
verified by anesthesia. We started with slow pressure insufflation which they tolerated. An 8 mm port was inserted in the fourth intercostal space laterally and a camera was inserted verifying no intrathoracic iatrogenic injuries. 2 additional
ports (8 mm and 8mm) were placed along the midaxillary line on either side of the camera port. Single 12 mm air seal port was used for the orthopedic physician assistant to pass instruments and sutures. The robotic platform was then docked and targeted towards the
mammary. The mammary was harvested in a skeletonized fashion. A posterior pericardiotomy was created to facilitate drainage. Once sufficient length was obtained, an anterior pericardiotomy was created to identify the distal target. This was marked
with a marker robotically. The cardiac stabilizer arm was then inserted through one of the robotic ports under direct vision and aimed up towards the anterior chest wall. Full heparinization was given (a total of 13,000 units). 3 Hem-o-tatum clips
were used to occlude and divide the mammary distally at its bifurcation, and a single 5-0 prolene suture was used to secure the mammary to the pericardium overlying the LAD target. The robot platform was then undocked and the patient and a left
anterior thoracotomy was created over the target vessel. Upon entering the thoracic cavity the mammary and LAD were visible. A soft tissue and thoracotomy retractor was placed to facilitate exposure and a pericardial well was created. The ACT was
confirmed to be over 400.
The cardiac suction stabilizer was used to isolate the LAD target. The distal end of the mammary was prepped and beveled to size. We verified orientation and length of the SHER and found brisk flow. A coronary arteriotomy was created and enlarged
with coronary saravia scissors. A 2mm shunt was inserted to facilitate exposure and continued ekuk coronary perfusion. An end-to-side anastomosis was created with a 7-0 prolene. The bulldog on the mammary was removed which demonstrated excellent
graft flow. The shunt was then remove and demonstrated excellent ekuk flow. Appropriate hemostasis was confirmed. The mammary graft was inspected and was free from kinking or twisting and flowprobe evaluation demonstrated good flow and PI. A test
dose of protamine was administered and the patient was monitored for any adverse reaction before resuming protamine. A 19F wes drain into the pericardium and through the posterior pericardiotomy into the left chest. Fascia was approximated with #1
vicryl suture. Local analgesia was administered to the surgical sites. The subcutaneous, dermis and epidermis were closed in layers in a running fashion. The skin wound was cleansed and dressed.
All instrument, sponge, and needle counts were confirmed to be correct x 2 at the end of the operation. The patient was transferred to the cardiac intensive care unit in critical but stable condition.
I, Dr. John Torrez, was present, scrubbed for, and performed all critical elements of this procedure.
John Torrez MD, MS
Cardiothoracic Surgeon
[facility]
This operative dictation was created using the Balloon dictation system. Please excuse any grammatical, typographical, or 'sound alike' errors
--- NOTE | 2024-11-24 12:35 | W.PN.CARDCBS ---
Addendum entered and electronically signed by Shan Dejesus MD 11/24/24 13:48:
I saw and examined the patient.
The SOCK AND STOCKING IRONER or PA's note was reviewed and I agree with the note.
Comment: Sedate
Neck: Supple, no JVD, HJR, carotids +2 B/L, no bruits bilaterally.
Heart: Non displaced PMI, RRR, no murmurs, No S3, S4, no rubs.
Lungs: Scattered rhonchi
Sternal dressings noted
Extremities: No clubbing, cyanosis or edema bilaterally.
Neuro: Sedate
Soon has history of infra wall NC in September 2024 status post stent of mid to distal OM 2 which is felt to be calcified lesion. Also was noted to have heavily calcified LAD second diagonal left circumflex initially treated medically. Peak
troponin was 6.4. She return for coronary bypass surgery today. She underwent robotic GUILLEN to LAD and is seen postoperatively. She currently is sedate but extubated. Is on low-dose Levophed at the present time he remains in sinus rhythm.
Original Note:
Today's Communication / Plan
-
-cont post op care
-resume DAPT, Metoprolol, statin
Impression / Plan
-
PCP: Esau Metzger DO
CDY: Esha Collins MD
79 y/o Slovak female status post acute inferior ST elevation NC 09/30/2024 s/p stenting of mid-distal OM 2 on 09/30/2024 thought to be culprit lesion but also found to have heavily calcified LAD, D2, and left circumflex initially medically managed.
She was started on Brilinta and aspirin, statin, beta benoit. Troponin peak 6.54. Echo 10/01/2024 EF 60 to 65%, no regional wall motion abnormalities, mod MR.
She was referred for consideration for robotic MIDCAB in the form of GUILLEN to LAD and thought to be a good candidate. Her history is significant for extensive GI history in the form of transverse colonic mass with bleeding requiring 5 units of PRBC
status post robotic extended right hemicolectomy later found to be invasive colonic adenocarcinoma. Also has history of hypertension, hyperlipidemia, microcytic anemia.
Her robotic GUILLEN to LAD CT was delayed for 30 days for dual antiplatelet therapy post stent..
Surgery was performed by Dr. oTrrez on 11/24/2024. She underwent robotic assisted MIDCAB (single-vessel bypass GUILLEN in situ to LAD) she was extubated in the OR. EF was normal preoperatively and postoperatively.
IMPRESSION:
s/p robotic MIDCAB GUILLEN-LAD 11/24/2024
Multivessel CAD
Acute inferior STEMI 09/30/2024 s/p Angioplasty/MILLI- mid/distal OM2
Residual heavily calcified LAD, D2, LCx
HLD
Invasive Colon adenocarcinoma, s/p R colectomy (10/2023)
Acute blood loss anemia thought to be secondary from GI source, 5u pRBC transfusion (10/2023)
Microcytic anemia
Influenza A in Oct 2023 s/p Tamiflu
Language barrier
Previous cardiovascular diagnostic testing:
LHC 09/30/2024- sig elevated LVEDP 28
distal LM 30-40%
ostial LAD 70%, mid LAD calcified 70-80% at D2
ostial D2 99% with proximal SUPERVISOR [employer]LL EFF[employer]Y, w/L-L collaterals
ostial LCx 50-60%
mid-distal OM2 w/2 serial hazy thrombotic 80-90%- s/p angioplasty/MILLI
Echo 10/01/2024 EF 60 to 65%, no regional wall motion abnormalities, mod MR.
PLAN:
Postop day 0 status post robotic MIDCAB GUILLEN to LAD
-Extubated in OR
-briefly on Levophed, now off
-Resume DAPT: to start aspirin tonight and Brilinta tomorrow per CT
-Telemetry personally reviewed, NSR, pac
-EKG personally reviewed: Normal sinus rhythm QTc 546 ms (QTc 11/13/2024 424ms)
-repeat EKG in a.m.
-resume outpt statin, metoprolol,
-cardiac rehab
-cont supportive postop care.
Progress Note - Parts Driver
Subjective
Date of Service: November 24, 2024
s/p robotic-assisted MIDCAB GUILLEN-LAD
extubated
in NSR
Objective
Labs:
Labs
Hgb 11.5 g/dL (12.0-16.0) L 11/13/24 08:21
Hct 35.6 % (37.0-47.0) L 11/13/24 08:21
Plt Count 227 10^3/uL (130-400) 11/13/24 08:21
PT 12.3 Sec (11.4-14.6) 11/13/24 08:21
INR 0.87 11/13/24 08:21
APTT 31.2 Sec (23.4-35.0) 11/13/24 08:21
Sodium 141 mmol/L (135-145) 11/13/24 08:21
Potassium 4.1 mmol/L (3.5-5.1) 11/13/24 08:21
BUN 17 mg/dl (7-17) 11/13/24 08:21
Creatinine 0.9 mg/dL (0.6-1.0) 11/13/24 08:21
Glucose 96 mg/dl (70-99) 11/13/24 08:21
Vital Signs and I&O:
Vital Signs
Temp Pulse Resp BP Pulse Ox
97.4 F 75 18 133/75 97
11/24/24 06:54 11/24/24 06:54 11/24/24 06:54 11/24/24 06:54 11/24/24 06:54
Vital Signs
Temp Pulse Resp BP Pulse Ox
97.4 F 75 18 133/75 97
11/24/24 06:54 11/24/24 06:54 11/24/24 06:54 11/24/24 06:54 11/24/24 06:54
Physical Exam
Physical Exam
GEN: No distress, sleeping, on O2 NC
HEENT: supple, anicteric, mmm
LUNGS: CTA, no wheezes/rales
CV: Reg, S1/S2, no rub, no murmur
ABD: soft, BS+, NT/ND
EXT: No edema
NEURO: Gross non-focal
SKIN: L lower breast, L axillary incision
[2024-11-24 13:00] LABS: Glucose - Point of Care 105 mg/dl (70-99)
[2024-11-24 13:05] LABS: B.E. -1.6 mmol/L; HCO3 24.7 mmol/L (21-28); Ionized Calcium 1.09 mMOL/L (1.15-1.33); O2 Saturation % 97.7 % (94-98); PCO2 48 mmHg (32-35); PO2 245 mmHg (83-108); Potassium 3.6 mMOL/L (3.5-5.1); Sodium 138 mMOL/L (136-145); pH 7.32 (7.35-7.45)
[2024-11-24 13:08] LABS: Hematocrit 27.3 % (37.0-47.0); Hemoglobin 8.9 g/dL (12.0-16.0); Platelet Count 156 10^3/uL (130-400)
[2024-11-24 13:19] LABS: INR 1.21; PT 15.6 Sec (11.4-14.6)
[2024-11-24 13:21] LABS: APTT 32.3 Sec (23.4-35.0)
[2024-11-24 13:22] LABS: Blood Urea Nitrogen 23 mg/dl (7-17); Estimated Creatinine Clearance 39 ml/min; Glucose 107 mg/dl (70-99); Magnesium 2.6 mg/dl (1.6-2.3)
--- NOTE | 2024-11-24 13:27 | W.PN.UPDATE ---
Update Note
Progress Note Update
79-year-old Luxembourgish speaking female was electively admitted on 11/24/2024 for MIDCAB due to residual coronary disease status post MILLI to OM after STEMI in 09/2024
IVF: 1300
U.O.:� 310
Blood:� none
Wires:� none
Inotropes:� none
Pressors:� none
Sedatives:� none
�
NEURO: Extubated in OR, drowsy, pupils +2mm B/L, M AE spontaneously
RESP: Lungs clear B/L. 1 mediastinal (5cc on arrival) chest tube to -20cm suction. Sanguineous drainage
CV: RRR +S1, S2, no S3, no�rub, no murmur. Dermabond to mini left anterior thoracotomy. RIJ intact
ABD: round, soft, no BS
EXT: no edema, +2/4 DP pulses B/L, no femoral bruit, left radial A-line intact
: Victoria with clear yellow urine
�
A/P: POD #0 s/p RA MIDCAB x 1 GUILLEN-LAD
JOHN: EF�55-60%, mild MR/TR
- wean and extubate
- goal SBP 90-130s
# CAD
# hx STEMI 09/2024
- will resume Brilinta 11/25
- continue ASA, statin, beta benoit
- Amio for AF prophylaxis
- resume ARB as BP permits
�
# acute surgical blood loss anemia-expected
- trend CBC
- monitor CT output
�
#�Hx colon adenocarcinoma s/p colectomy 10/2023
- stable
�
[2024-11-24] MEDS: KCL 50 IV ×2 (13:29→15:33)
[2024-11-24] MEDS: NSS 500 IV (13:29)
[2024-11-24] MEDS: NEURONTIN PO (13:30)
[2024-11-24] MEDS: ANCEF 10 IV ×2 (13:30)
[2024-11-24 13:59] LABS: Glucose - Point of Care 90 mg/dl (70-99)
--- NOTE | 2024-11-24 14:08 | CON.INTV ---
Consultation
Consultation Request
Date/Time Consultation Requested: 11/24/2024-2 PM
Date/Time Consultation Performed: 11/24/2024-2 PM
Requesting Provider: Cardiovascular surgery
Performing Provider: Dr. Gibson
Reason for Consultation: Postoperative ventilator/critical care management
Medical History
-
Chief Complaint: CAD
History of Present Illness:
79-year-old female with a history of hypertension, hyperlipidemia, invasive colon adenocarcinoma status post colectomy noted to have multivessel CAD-underwent robotic assisted single-vessel [id number]-[id number] and hospital chief financial officer consulted for postoperative
ventilator/critical care management 11/24/2024. The patient has been successfully extubated. She is very groggy. No complaints of shortness of breath, pain controlled, still on some pressors, no abdominal pain or leg swelling.
Past Medical History
Past Medical History: None (Hypertension. Hyperlipidemia. CAD/stent. Invasive colon carcinoma/colectomy 10/2023. )
Social History
Tobacco: Non-smoker
Alcohol: None
Drug: None
Living: With Family
Occupational Exposures: No known asbestos exposure
Environmental Exposures: No known tuberculosis exposure
Family History
Family History: Reviewed & Not Pertinent (Mother-CAD)
Allergies / Home Medications
Allergies
Allergy/AdvReac Type Severity Reaction Status Date / Time
No Known Allergies Allergy Unverified 11/11/24 08:55
Home Medications
�Medication �Instructions �Recorded �Confirmed �Last Taken �Type
atorvastatin 40 mg tablet (Lipitor) 40 mg PO QPM High Cholesterol 10/15/23 11/24/24 11/16/24 08:00 History
telmisartan 40 1 tab PO DAILY 10/01/24 11/24/24 11/21/24 08:00 History
mg-hydrochlorothiazide 12.5 mg
tablet
ticagrelor 90 mg tablet (Brilinta) 90 mg PO BID #180 tabs 10/01/24 11/24/24 11/16/24 08:00 Rx
aspirin 81 mg chewable tablet 81 mg PO DAILY #1 tab 10/02/24 11/24/24 11/16/24 08:00 Rx
metoprolol succinate 25 mg 25 mg PO DAILY #90 tabs 10/02/24 11/24/24 11/16/24 08:00 Rx
tablet,extended release 24 hr
Review of Systems
-
Unable to Obtain full review of systems at this time due to: Other (Per HPI)
Vitals / Labs / Diagnostic Testing
Vital Signs
Temp Pulse Resp BP Pulse Ox
95.8 F L 74 17 98/56 100
11/24/24 14:00 11/24/24 14:00 11/24/24 14:00 11/24/24 14:00 11/24/24 14:00
Lab Data
11/24/24 12:49
Laboratory Results
11/24/24
12:49
PT 15.6 H
INR 1.21
APTT 32.3
pH 7.32 L
pCO2 48 H
pO2 245 H
HCO3 24.7
O2 Delivery Level
Diagnostic Testing:
Physical Exam
-
Exam:
Well-nourished and well-developed in no apparent distress
HEENT-atraumatic, normocephalic
Neck-supple, no JVD, no bruit
Heart-regular rate and rhythm-no murmurs, rubs or gallops
Chest-clear to auscultation, no wheezes, crackles, mediastinal chest tube
Back-no tenderness
Abdomen-soft, nontender, nondistended, no hepatosplenomegaly
Extremities-no cyanosis, clubbing, edema and good peripheral pulses
Integument-intact, no rashes, lesions or ecchymosis
Neurology-alert and oriented, nonfocal motor and sensory exam
Assessment
-
79-year-old female with a history of hypertension, hyperlipidemia, invasive colon adenocarcinoma status post colectomy noted to have multivessel CAD-underwent robotic assisted single-vessel [id number] and hospital chief financial officer consulted for postoperative
ventilator/critical care management 11/24/2024.
Coronary artery disease with proximal LAD involvement and recent STEMI requiring stenting
Status post robotic assisted MIDCAB-GUILLEN in situ-LAD-Dr. Torrez 11/24/2024
Anemia
Mild hyperglycemia
Abnormal CT chest
Conditions present prior to admission:
Hypertension.
Hyperlipidemia.
CAD/stent.
Invasive colon carcinoma/colectomy 10/2023.
Plan
Respiratory status stable postextubation
Wean FiO2
Incentive spirometry
Aspiration precautions
Nebulizers if needed-currently not bronchospastic
Hemodynamics will be followed closely
Pressors/antihypertensive/inotropes/diuretics will be provided as needed
Monitor chest tube output-has single mediastinal chest tube
Monitor hemoglobin
Monitor platelet count and coags
Transfuse blood product if needed
CT surgery following chest tubes
Monitor blood sugar
Insulin drip per protocol
DVT prophylaxis
Early nutrition
Early mobilization
Hospitalization records from 10/[address] were reviewed [address] chest-patient was advised to have outpatient PET scan and mammogram-unclear if she obtain these
Recommend outpatient pulmonary ifidxe-vy-SSR scan, repeat CT chest, etc.
Critical care statement: A total of 50 minutes of critical care time was provided for this patient today. This includes management of ventilator, spontaneous breathing trial, arterial blood gases, pressors, of unstable vital signs, evaluation of the
patient at bedside, reviewing the patient's pertinent medical records including radiographs, microbiology, laboratory evaluations, and discussion with primary team and critical care nursing.
Diagnostic data:
Chest x-ray 11/24/2024-no pneumothorax or pleural effusion, mild bilateral subsegmental atelectasis or scarring
CT chest 10/16/2023-left mediastinal mass possibly lymph node, MRI recommended, nodularity right lower lobe PET scan recommended, small solid right upper lobe and right lower lobe nodule consistent with prior granulomatous disease
Echocardiogram 10/01/2024-EF 60-65%, moderate mitral regurgitation
Data Reviewed
-
EKG: Report reviewed by me
Radiology: Image personally visualized and interpreted and Report reviewed by me
CT Scan: Image personally visualized and interpreted and Report reviewed by me
Labs: Labs reviewed by me
Old Records: Reviewed
Critical Care Time (in minutes): 50
--- NOTE | 2024-11-24 14:23 | CM ---
pt in OR today, cm following
--- NOTE | 2024-11-24 14:24 | PTCARENOTE ---
Pt received from [facility] at 1245; AAOx3 but very drowsy; Responds to tactile stimulation; Vietnamese speaking and level vial sealer iPad used for interpreting; Pupils round, reactive, and equal; SR with prolonged QT on monitor; VSS; +2 DP and radial pulses
present; Lungs diminished; SpO2 98-100% on 6L Simple Mask; CTx1 to -20 cm wall suction draining bloody drainage - no air leak, tidaling, or crepitus noted; Hypoactive BS; Victoria catheter in place draining clear, yellow urine; Left chest wall incision
glued and approximated - CDI, Left chest puncture sites x3 glued and approximated - CDI; A-line in left radial artery, SLIC present in right IJ Cordis - all lines zeroed and level; PIVx1 #18 right forearm; Levo and insulin infusing; K repleted x2;
iCal repleted x1; See nursing flowsheets for further details.
[2024-11-24] MEDS: CALCIUM CHLORIDE 10% SYRINGE 50 ML IV (14:32)
[2024-11-24] MEDS: CALCIUM CHLORIDE 10% SYRINGE 50 MG IV (14:32)
[2024-11-24 14:36] LABS: B.E. - POC -0.6 mmol/L; Glucose - POC 106 mg/dl (70-99); HCO3 - POC 24 mmol/L (21-28); Hematocrit - POC 25 % PCV (37-47); Hemodilution- POC No; Hemoglobin Calculated - POC 8.6; O2 Saturation %Calculated-POC 99.1 % (94-98); PCO2 - POC 41 mmHg (35-48); PO2 - POC 139 mmHg (83-108); Potassium - POC 3.6 mmol/L (3.5-5.1); Sodium - POC 141 mmol/L (136-145); Specimen Type - POC Arterial; pH - POC 7.38 (7.35-7.45)
[2024-11-24] MEDS: TORADOL 15 MG IV (14:41)
[2024-11-24 14:59] LABS: Glucose - Point of Care 76 mg/dl (70-99)
[2024-11-24] MEDS: LOW STRENGTH ASPIRIN 81 MG PO (15:23)
[2024-11-24] MEDS: TYLENOL 1000 MG PO ×2 (15:51→22:34)
[2024-11-24] MEDS: NEURONTIN 100 MG PO ×2 (15:51→22:35)
[2024-11-24] MEDS: PACERONE 200 MG PO ×2 (15:51→22:35)
[2024-11-24 15:59] LABS: Glucose - Point of Care 85 mg/dl (70-99)
[2024-11-24] MEDS: ANCEF 5 IV (17:09)
[2024-11-24] MEDS: LIPITOR 40 MG PO (17:09)
[2024-11-24 17:13] LABS: Glucose - Point of Care 84 mg/dl (70-99)
[2024-11-24 17:15] LABS: Hematocrit 28.3 % (37.0-47.0); Hemoglobin 9.3 g/dL (12.0-16.0); Platelet Count 157 10^3/uL (130-400)
[2024-11-24 17:29] LABS: B.E. -2.1 mmol/L; HCO3 23.7 mmol/L (21-28); Ionized Calcium 1.37 mMOL/L (1.15-1.33); O2 Saturation % 97.6 % (94-98); PCO2 44 mmHg (32-35); PO2 189 mmHg (83-108); Potassium 4.7 mMOL/L (3.5-5.1); Sodium 139 mMOL/L (136-145); pH 7.34 (7.35-7.45)
[2024-11-24 18:06] LABS: Glucose - Point of Care 90 mg/dl (70-99)
--- NOTE | 2024-11-24 18:34 | PTCARENOTE ---
Patient weaned off levo infusion - see nursing flowsheets for further details; ABG drawn - GINA Rothman states to deline patient; VSS throughout and no complications noted; Oxygen weaned to 2L NC
[2024-11-24 19:12] LABS: Glucose - Point of Care 79 mg/dl (70-99)
[2024-11-24] MEDS: ROXICODONE 5 MG PO (19:17)
[2024-11-24] MEDS: SENOKOT-S PO (19:18)
--- NOTE | 2024-11-24 20:00 | SUR.OPER ---
Received pt from [facility] pt resting comfortably in bed with son at bedside. Pt is s/p MidCABG. pt is AAOX4, states pain is 4/10, see MAR. NSR on monitor. VSS. heart sounds audible, radial an DP pulses palpable, no edema noted. lungs diminished
throughout, spo2 is 100% on 2LNC, x1 MS CT to -20 wall suction, no air leaks, no tidaling, no crepitus. hyperactive BS x4 quadrants, abdomen soft non tender. pt voiding clear yellow urine via ramirez cath, urine output has been dropping every hr CVPA
aware. surgical sites maintained. pt was delined earlier by , right IJ cordis and PIV maintained. insulin gtt infusing. call cooper within reach. will continue to monitor.
[2024-11-24 20:17] LABS: Glucose - Point of Care 79 mg/dl (70-99)
[2024-11-24] MEDS: LR 250 ML IV (21:00)
[2024-11-24 21:15] LABS: Glucose - Point of Care 87 mg/dl (70-99)
[2024-11-24 23:13] LABS: Glucose - Point of Care 84 mg/dl (70-99)
[2024-11-24] MEDS: ZOFRAN 4 MG IV (23:30)
[2024-11-25] VITALS (22 sets, daily range): BP systolic 91–124; BP diastolic 41–69; PULSE 67–71; O2SAT 97–98; BMI 18.9
--- NOTE | 2024-11-25 | PTCARENOTE ---
pt assessment unchanged. CT dressing changed. 250mls of LR given. zofran given for nausea. will continue to monitor.
--- NOTE | 2024-11-25 00:38 | W.PN.CT ---
Today's Communication / Plan
-
Plan:
-No major issues overnight. Hemodynamically and neurologically intact
-Successfully extubated intraop
-No drips other than insulin
-No swan, u/o since OR 400 mL
-Monitor chest tube output: 1meds 70/105
-Cont. current meds (ASA, Brilinta, Lopressor, Amiodarone, Lipitor)
-Toradol x 3 for probable acute pericarditis postop, +rub
-Will place mag oxide on hold, given mg of 2.8
-Will D/C ramirez @ 0600
-Telemetry phase today when off insulin gtt
-No temporary PW
-Encourage use of IS
-Wean off O2 as tolerated
-OOB into chair/Ambulate
Assessment / Plan
-
Assessment:
-S/p Robotic assisted MIDCAB (single-vessel bypass GUILLEN in situ to LAD)/Robotic assisted harvest of internal mammary artery with anterolateral mini thoracotomy for CABG, by Dr. Torrez, 11/24/24, pod#1
-Coronary artery disease involving the proximal LAD
-Hx inferior STEMI S/P PCI with MILLI to mid-distal OM2, 09/30/24
-Mild central MR
-Milt TR
-LVEF 55-60% per intraop JOHN
-History of colon cancer status post colectomy
-Hypertension
-Hyperlipidemia
-History of salivary gland cancer
-Underweight BMI under 18
-Anemia
-Acute postop blood loss on chronic Anemia (stable without transfusion)
-Acute postop atelectasis
-Acute postop hypermagnesemia
-Acute postop hypovolemia with subsequent hypervolemia
-Acute postop EKG consistent with acute pericarditis (+rub)
Discussed patient care with: Cardiology, Nursing, Respiratory Therapy, Pharmacy and Care Team
Subjective
Procedure
Robotic assisted MIDCAB (single-vessel bypass GUILLEN in situ to LAD)/Robotic assisted harvest of internal mammary artery with anterolateral mini thoracotomy for CABG, by Dr. Torrez, 11/24/24
-
Date of Service: November 25, 2024
Pt c/o chest tube insertion site discomfort, denies significant chest discomfort
Objective Data
-
PT 15.6 Sec (11.4-14.6) H 11/24/24 12:49
INR 1.21 11/24/24 12:49
APTT 32.3 Sec (23.4-35.0) 11/24/24 12:49
Vital Signs
Vital Signs
Temp Pulse Resp BP Pulse Ox
97.7 F 65 10 111/60 100
11/25/24 00:00 11/25/24 00:00 11/25/24 00:00 11/25/24 00:00 11/25/24 00:00
CT Intake/Output/Weight
11/24/24 11/24/24 11/25/24
06:59 18:59 06:59
Intake Total 287.1 / 348.3 61.2 / 348.3
Output Total 245 / 370 125 / 370
Balance 42.1 / -21.7 -63.8 / -21.7
SaO2: 100 (RA)
Physical Exam
-
General: Awake, Oriented and AOx3
Cardiovascular: Regular rate & rhythm, No Murmurs, Rub (likely d/t acute pericarditis) and No Gallop
Respiratory: Decreased Breath Sounds (at bases, otherwise clear)
Sternum: Stable
Incision: Clean, Dry, Intact and Dressing Intact
Extremities: No Edema
Data Reviewed
-
Lab Results: Results Reviewed
Medications: Active Meds Reviewed
Chest X-Ray: Report Reviewed and Image Reviewed
ECG: Report Reviewed and Image Reviewed
[2024-11-25] MEDS: ANCEF 5 IV ×2 (00:50→08:20)
[2024-11-25] MEDS: LR 250 ML IV (00:51)
[2024-11-25 00:58] LABS: Glucose - Point of Care 82 mg/dl (70-99)
[2024-11-25 02:58] LABS: Glucose - Point of Care 76 mg/dl (70-99)
[2024-11-25 03:42] LABS: Hematocrit 27.7 % (37.0-47.0); Hemoglobin 8.9 g/dL (12.0-16.0); Mean Corp Hgb Conc. 32.1 g/dL (33.0-37.0); Mean Corpuscular Hgb 29.9 pg (27.0-31.0); Mean Platelet Volume 10.3 fL (7.4-10.4); Platelet Count 157 10^3/uL (130-400); Red Blood Cell Count 2.98 10^6/uL (4.20-5.40); Red Cell Dist. Width 12.9 % (11.5-14.5)
--- NOTE | 2024-11-25 04:00 | PTCARENOTE ---
pt assessment unchanged. NSR, VSS. pt resting comfortable in bed. EKG obtained. labs drawn and sent. CHG bath provided, along with new gown and tele leads. call cooper within reach will continue to monitor.
[2024-11-25 04:09] LABS: Blood Urea Nitrogen 36 mg/dl (7-17); Calcium 8.6 mg/dl (8.4-10.2); Carbon Dioxide 21 mmol/L (22-30); Chloride 108 mmol/L (98-107); Estimated Creatinine Clearance 31 ml/min; Glucose 75 mg/dl (70-99); Magnesium 2.8 mg/dl (1.6-2.3); Potassium 4.5 mmol/L (3.5-5.1); Sodium 138 mmol/L (135-145); eGFR 56.95
[2024-11-25 05:00] LABS: Glucose - Point of Care 82 mg/dl (70-99)
[2024-11-25] MEDS: TYLENOL 1000 MG PO ×3 (05:30→23:51)
[2024-11-25] MEDS: TORADOL 15 MG IV ×2 (05:30→09:14)
[2024-11-25] MEDS: DEXTROSE 50% SYRINGE 12.5 GRAMS IV (06:00)
[2024-11-25 06:03] LABS: Glucose - Point of Care 68 mg/dl (70-99)
[2024-11-25 06:17] LABS: Glucose - Point of Care 166 mg/dl (70-99)
[2024-11-25 06:41] LABS: Glucose - Point of Care 142 mg/dl (70-99)
[2024-11-25 07:08] LABS: Glucose - Point of Care 126 mg/dl (70-99)
--- NOTE | 2024-11-25 07:36 | W.PN.INTV ---
Today's Communication / Plan
Recommendations
deline
Wean oxygen
Increase activity
Monitor chest tube output
Transfer to telemetry-call pulmonary if respiratory issues arise
Assessment
-
79-year-old female with a history of hypertension, hyperlipidemia, invasive colon adenocarcinoma status post colectomy noted to have multivessel CAD-underwent robotic assisted single-vessel [id number]-LYD and engineering drawings checker consulted for postoperative
ventilator/critical care management 11/24/2024.
Coronary artery disease with proximal LAD involvement and recent STEMI requiring stenting
Status post robotic assisted MIDCAB-GUILLEN in situ-LAD-Dr. Torrez 11/24/2024
Anemia
Mild hyperglycemia
Abnormal CT chest
Conditions present prior to admission:
Hypertension.
Hyperlipidemia.
CAD/stent.
Invasive colon carcinoma/colectomy 10/2023.
Plan
Tolerated extubation
Wean FiO2
Encourage incentive spirometry
Increase activity
Aspiration precautions
Pulmonary artery catheter and arterial line will be removed
Pressors have been weaned
Continue to monitor chest tube output
Follow hemoglobin
Continue to follow platelet count and coags
Transfuse blood product as needed
CT surgery following chest tubes as well
Follow blood sugar
Insulin supplementation continues as needed
Early nutrition
Early mobilization
DVT prophylaxis
Patient will be transferred to telemetry phase-call pulmonary if respiratory issues arise
Hospitalization records from 10/[address] were reviewed [address] chest-patient was advised to have outpatient PET scan and mammogram-unclear if she obtain these
Recommend outpatient pulmonary readbv-ck-FSR scan, repeat CT chest, etc.
Reviewed the patient's pertinent medical records including radiographs, microbiology, laboratory evaluations, and discussion with primary team, and critical care nursing.
Diagnostic data:
Chest x-ray 11/24/2024-no pneumothorax or pleural effusion, mild bilateral subsegmental atelectasis or scarring
CT chest 10/16/2023-left mediastinal mass possibly lymph node, MRI recommended, nodularity right lower lobe PET scan recommended, small solid right upper lobe and right lower lobe nodule consistent with prior granulomatous disease
Echocardiogram 10/01/2024-EF 60-65%, moderate mitral regurgitation
Subjective Dataa
Subjective Data
Date of Service:
Date of Service: November 25, 2024
Chief Complaint: Director Of Vocational Training Follow Up and Vent Management Follow Up
Subjective:
Tolerated extubation, some nausea this morning, no shortness of breath, chest pain or abdominal pain
Review of Systems
General: Other (Per HPI)
Objective Data
Data Reviewed
Vital Signs / I&O / Oxygen:
Vital Signs
Temp Pulse Resp BP Pulse Ox
97.7 F 65 14 110/61 99
11/25/24 07:00 11/25/24 07:00 11/25/24 07:00 11/25/24 07:00 11/25/24 07:00
Intake and Output
11/24/24 11/25/24 11/26/24
06:59 06:59 06:59
Intake Total 659.1 / 669.1
Output Total 500 / 505
Balance 159.1 / 164.1
SaO2 99
Nasal Cannula flow liters per 2
minute
Physical Exam
General: Respiratory Distress (n) and Comfortable
HEENT: Normocephalic, Anicteric and Moist Mucous Membranes
Cardiovascular: Regular Rhythm
Respiratory: Wheeze (n), Crackles (n), Rhonchi (n), Non-Labored Respirations and Accessory Resp Muscle Use (n)
GI: Soft, Non Distended and Non Tender
Neurology: Awake, Alert and No Motor Deficits
Skin: Warm, Good Color and Cyanosis (n)
Labs/Micro/Reports
Lab Data
11/25/24 02:58
11/25/24 02:58
Laboratory Results
11/24/24 11/24/24
12:49 17:22
PT 15.6 H
INR 1.21
APTT 32.3
pH 7.32 L 7.34 L
pCO2 48 H 44 H
pO2 245 H 189 H
HCO3 24.7 23.7
O2 Delivery Level
[2024-11-25 08:00] LABS: Glucose - Point of Care 119 mg/dl (70-99)
--- NOTE | 2024-11-25 08:02 | W.PN.ANS.POP ---
Anesthesia Post Operative
- Anesthesia Post Op Note
Vital Signs Stable-See Nursing Note: Yes (Pt oob to chair; RN at bedside; pt denies c/o)
Airway Patent: Yes
Adequate Pain Control: Yes
Change in Mental Status: No
Current Postoperative Nausea & Vomiting: No
Anesthesia Complications: No
General Anesthetic Recall: No
Unplanned Admission: No
Post Op Hydration Adequate: Yes
--- NOTE | 2024-11-25 08:08 | PTCARENOTE ---
Pt received from clinic manager RN; AAOx3, responds spontaneously to RN and follows commands; Albanian speaking and ballistics tester iPad used for interpreting; NSR on monitor; VSS; Friction rub present; +2 DP and radial pulses present; Lungs diminished
throughout; Shallow respirations; SpO2 97-100% on RA; IS 500 ml; CTx1 to -20 cm wall suction draining bloody drainage - no air leak, tidaling, or crepitus noted; Normoactive BS; DTV; Left chest wall incision glued and approximated - CDI, left chest
puncture sites x3 glued and approximated - CDI; Right IJ Cordis with KVO and insulin infusing, PIVx1 #18 right forearm - see nursing flowsheets for further details; See nursing documentation for further information.
[2024-11-25] MEDS: LIDOCAINE 4% PATCH TOPICAL (08:13)
[2024-11-25] MEDS: LOW STRENGTH ASPIRIN 81 MG PO (08:19)
[2024-11-25] MEDS: SENOKOT-S 1 TABLET PO ×2 (08:19→20:34)
[2024-11-25] MEDS: PACERONE 200 MG PO ×2 (08:19→15:37)
[2024-11-25] MEDS: PROTONIX 40 MG PO (08:19)
[2024-11-25] MEDS: BRILINTA 90 MG PO ×2 (08:19→20:34)
[2024-11-25] MEDS: NEURONTIN 100 MG PO ×3 (08:19→23:51)
[2024-11-25] MEDS: LOPRESSOR 12.5 MG PO ×2 (08:19→20:34)
[2024-11-25] MEDS: BACTROBAN 2% OINTMENT 1 APPLIC NASAL ×2 (08:20→20:34)
[2024-11-25] MEDS: ZOFRAN 4 MG IV (08:55)
[2024-11-25 08:59] LABS: Glucose - Point of Care 97 mg/dl (70-99)
--- NOTE | 2024-11-25 09:50 | W.PN.CARDCBS ---
Addendum entered and electronically signed by Shan Dejesus MD 11/25/24 12:02:
I saw and examined the patient.
The SEWER PIPE LAYER or PA's note was reviewed and I agree with the note.
Comment: General: Well developed, well nourished in NAD.
Neck: Supple, no JVD, HJR, carotids +2 B/L, no bruits bilaterally.
Heart: Non displaced PMI, RRR, no murmurs, No S3, S4, no rubs.
Lungs: Scattered rhonchi
Extremities: No clubbing, cyanosis or edema bilaterally.
Neuro: Grossly nonfocal, awake, alert and oriented x3.
She is doing very well. She remains in sinus rhythm. Chest tube will come out later today.
Original Note:
Today's Communication / Plan
-
continue post op care
toradol for pericarditis
Impression / Plan
-
PCP: Esau Metzger DO
CDY: Esha Collins MD
79 y/o Czech female status post acute inferior ST elevation PR 09/30/2024 s/p stenting of mid-distal OM 2 on 09/30/2024 thought to be culprit lesion but also found to have heavily calcified LAD, D2, and left circumflex initially medically managed.
She was started on Brilinta and aspirin, statin, beta benoit. Troponin peak 6.54. Echo 10/01/2024 EF 60 to 65%, no regional wall motion abnormalities, mod MR.
She was referred for consideration for robotic MIDCAB in the form of GUILLEN to LAD and thought to be a good candidate. Her history is significant for extensive GI history in the form of transverse colonic mass with bleeding requiring 5 units of PRBC
status post robotic extended right hemicolectomy later found to be invasive colonic adenocarcinoma. Also has history of hypertension, hyperlipidemia, microcytic anemia.
Her robotic GUILLEN to LAD CT was delayed for 30 days for dual antiplatelet therapy post stent..
Surgery was performed by Dr. Torrez on 11/24/2024. She underwent robotic assisted MIDCAB (single-vessel bypass GUILLEN in situ to LAD) she was extubated in the OR. EF was normal preoperatively and postoperatively.
IMPRESSION:
s/p robotic MIDCAB GUILLEN-LAD 11/24/2024
Multivessel CAD
Acute inferior STEMI 09/30/2024 s/p Angioplasty/MILLI- mid/distal OM2
Residual heavily calcified LAD, D2, LCx
HLD
Invasive Colon adenocarcinoma, s/p R colectomy (10/2023)
Acute blood loss anemia thought to be secondary from GI source, 5u pRBC transfusion (10/2023)
Microcytic anemia
Influenza A in Oct 2023 s/p Tamiflu
Language barrier
Echo 10/01/2024 EF 60 to 65%, no regional wall motion abnormalities, mod MR.
PLAN:
-s/p robotic MIDCAB GUILLEN-LAD 11/24/2024
-off pressors
-EKG with evidence of pericarditis. receiving toradol. pain controlled
-hgb 8.9. continue asa, brilinta
-was on toprol 25mg daily, telmisartan/HCTZ prior to admission. resume as able
-cardiac rehab
-cont supportive postop care.
-d/w nursing
Progress Note - Client Technical Professional
Subjective
Date of Service: November 25, 2024
pain controlled
Objective
Labs:
11/25/24 02:58
11/25/24 02:58
Labs
Hgb 8.9 g/dL (12.0-16.0) L 11/25/24 02:58
Hct 27.7 % (37.0-47.0) L 11/25/24 02:58
Plt Count 157 10^3/uL (130-400) 11/25/24 02:58
PT 15.6 Sec (11.4-14.6) H 11/24/24 12:49
INR 1.21 11/24/24 12:49
APTT 32.3 Sec (23.4-35.0) 11/24/24 12:49
Sodium 138 mmol/L (135-145) 11/25/24 02:58
Potassium 4.5 mmol/L (3.5-5.1) 11/25/24 02:58
BUN 36 mg/dl (7-17) H 11/25/24 02:58
Creatinine 1.0 mg/dL (0.6-1.0) 11/25/24 02:58
Glucose 75 mg/dl (70-99) 11/25/24 02:58
Vital Signs and I&O:
Vital Signs
Temp Pulse Resp BP Pulse Ox
97.7 F 68 15 117/62 97
11/25/24 07:00 11/25/24 09:00 11/25/24 09:00 11/25/24 09:00 11/25/24 09:00
Vital Signs
Temp Pulse Resp BP Pulse Ox
97.7 F 68 15 117/62 97
11/25/24 07:00 11/25/24 09:00 11/25/24 09:00 11/25/24 09:00 11/25/24 09:00
Intake & Output
11/23/24 11/24/24 11/25/24 11/26/24
07:59 07:59 07:59 07:59
Intake Total 669.1 / 680.3 412.4 / 412.4
Output Total 505 / 505 125 / 125
Balance 164.1 / 175.3 287.4 / 287.4
Physical Exam
Physical Exam
GEN: No distress, awake, alert, oriented x3
HEENT: supple, anicteric, mmm, eomi
LUNGS: CTA B/L, no wheezes
CV: Reg, S1/S2, no murmur, + rub
ABD: soft, BS+, NT/ND
EXT: No cyanosis, clubbing, edema
NEURO: Gross non-focal
SKIN: Warm, pink, dry. No rash
[2024-11-25 10:03] LABS: Glucose - Point of Care 95 mg/dl (70-99)
[2024-11-25] MEDS: NSS IV (12:16)
--- NOTE | 2024-11-25 12:53 | PTCARENOTE ---
Patient vomited brown emesis after eating breakfast this AM; PRN IV Zofran given with adequate relief; IV Insulin gtt discontinued; Chest tube pulled by GINA Rothman at bedside - no complications noted and VSS throughout; Patient ambulating in
hallways with RN
[2024-11-25] MEDS: REGLAN 10 MG IV (13:21)
[2024-11-25] MEDS: FERRLECIT 110 MG IV (13:24)
--- NOTE | 2024-11-25 16:42 | PTCARENOTE ---
Patient nauseated again this afternoon with dry heaving; CVNP Dona Quiroz notified - IV Reglan 10 mg ordered and given with good effect; Patient drowsy afterwards and wanting to sleep through afternoon - encourage by RN to ambulate in hallways and stay
OOB in chair
[2024-11-25] MEDS: LIPITOR 40 MG PO (17:19)
--- NOTE | 2024-11-25 20:45 | PTCARENOTE ---
Report recerived from CARMENCITA Lopez. L lateral former CT site with large amount of SSG drain age. Dressing changed at shift change. ANNALEE Skaggs at bedside to assess site at 1999. Site redressed/reinforced. Sats 93-95% on krishna air. Denies dyspnea, pain.
BP 114/65. HR SR 60-70's.
Pt primarily Wolof speaking. Language line used as needed for translation. No c/o pain. Awake, alert, oriented x 4. Speech clear. Extremity strength equal x 4. BBS present. Decreased to B bases. CDB and IS encouraged. IS peak 1000 mls. Productive
cough x 1. Audible heart tones. Faint rub present. For pulse and wound assessments, see flowsheets. Belly soft, nontender. Normoactive bs x 4. Ongoing plan of care.
[2024-11-25] MEDS: PACERONE PO (23:50)
[2024-11-26] VITALS (21 sets, daily range): BP systolic 78–150; BP diastolic 46–81; PULSE 73; O2SAT 96–98; BMI 19.5
[2024-11-26] MEDS: ALBUMIN 5% 250 IV ×2 (00:18→05:15)
--- NOTE | 2024-11-26 00:20 | PTCARENOTE ---
BP at ~ 2332 91 systolic. Pt denies urge to void. Has not voided since day shift at ~1337. ANNALEE Huynh notified. Albumin 5% 250 mls given per order. Bladder scanned for 125 mls. PA aware.
--- NOTE | 2024-11-26 02:13 | PTCARENOTE ---
BP 84/52 after Albumin infused. Pt remains in SR 58-60's. Pt warm, dry, sleeping. +2 palpable pulses to B radial sand DP. L lateral former CT dressing assessed. Not saturated on appearance. BBS present. Sats 98% on 1L/NC. Discussed with ANNALEE Huynh.
Will obtain am labs at 0300 per recommendation of PA.
[2024-11-26 03:31] LABS: Hematocrit 24.8 % (37.0-47.0); Hemoglobin 8.2 g/dL (12.0-16.0); Mean Corp Hgb Conc. 33.1 g/dL (33.0-37.0); Mean Corpuscular Hgb 30.5 pg (27.0-31.0); Mean Corpuscular Volume 92.2 fL (81.0-99.0); Mean Platelet Volume 10.3 fL (7.4-10.4); Platelet Count 146 10^3/uL (130-400); Red Blood Cell Count 2.69 10^6/uL (4.20-5.40); Red Cell Dist. Width 13.1 % (11.5-14.5); White Blood Cell Count 5.8 10^3/uL (4.8-10.8)
--- NOTE | 2024-11-26 04:00 | PTCARENOTE ---
Labs obtained. Pt voided 175 mls urine on bedpan. Bladder scanned for 178 mls urine prior to voiding. BP slightly higher: 103/60, 95/56. PA in to see pt and assess L lateral CT dressing. small amount of SSG drainage present. Ongoing plan of care.
[2024-11-26 04:18] LABS: Blood Urea Nitrogen 51 mg/dl (7-17); Calcium 7.8 mg/dl (8.4-10.2); Carbon Dioxide 23 mmol/L (22-30); Chloride 107 mmol/L (98-107); Estimated Creatinine Clearance 22 ml/min; Glucose 111 mg/dl (70-99); Magnesium 2.8 mg/dl (1.6-2.3); Sodium 138 mmol/L (135-145); eGFR 35.01
[2024-11-26] MEDS: TYLENOL 1000 MG PO ×3 (05:16→22:20)
--- NOTE | 2024-11-26 05:18 | W.PN.CT ---
Today's Communication / Plan
-
-pod #2
-low BP 80s-90s with low UO overnight, denies dizziness - gave Albumin x 2. Will hold BB and monitor
-Hg 8.2 today (8.9 on 11/25 and 10-11.5 preop)- will give 1 pRBC
-Cr 1.5 today (1.0 on 11/25 and 1.0 preop)
-repleted Ca
-BMP pending
-current meds (ASA, Brilinta, Lipitor, Amio, Protonix)
-encourage IS, OOB
Assessment / Plan
-
Assessment:
-S/p Robotic assisted MIDCAB (single-vessel bypass GUILLEN in situ to LAD)/Robotic assisted harvest of internal mammary artery with anterolateral mini thoracotomy for CABG, by Dr. Torrez, 11/24/24, pod#2
-Coronary artery disease involving the proximal LAD
-Hx inferior STEMI S/P PCI with MILLI to mid-distal OM2, 09/30/24
-Mild central MR
-Milt TR
-LVEF 55-60% per intraop JOHN
-History of colon cancer status post colectomy
-Hypertension
-Hyperlipidemia
-History of salivary gland cancer
-Underweight BMI under 18
-Anemia
-Acute postop blood loss on chronic Anemia (stable without transfusion)
-Acute postop atelectasis
-Acute postop hypermagnesemia
-Acute postop hypovolemia with subsequent hypervolemia
-Acute postop EKG consistent with acute pericarditis (+rub)
-CARLOS, likely prerenal d/t hypotension
Discussed patient care with: Nursing and Care Team
Subjective
Procedure
Robotic assisted MIDCAB (single-vessel bypass GUILLEN in situ to LAD)/Robotic assisted harvest of internal mammary artery with anterolateral mini thoracotomy for CABG, by Dr. Torrez, 11/24/24
-
Date of Service: November 26, 2024
Objective Data
-
Lab Results
11/26/24 03:20
PT 15.6 Sec (11.4-14.6) H 11/24/24 12:49
INR 1.21 11/24/24 12:49
APTT 32.3 Sec (23.4-35.0) 11/24/24 12:49
Vital Signs
Vital Signs
Temp Pulse Resp BP Pulse Ox
97.9 F 61 15 84/52 97
11/26/24 01:10 11/26/24 02:06 11/26/24 01:44 11/26/24 02:06 11/26/24 02:06
CT Intake/Output/Weight
11/25/24 11/25/24 11/26/24
06:59 18:59 06:59
Intake Total 372.0 / 669.1 572.9 / 572.9
Output Total 255 / 505 130 / 130
Balance 117.0 / 164.1 442.9 / 442.9
SaO2: 97
Physical Exam
-
General: Awake and AOx3
Cardiovascular: Regular rate & rhythm, No Murmurs and Rub
Respiratory: Decreased Breath Sounds
Incision: Clean (small amount of serosanguinous discharge) and Intact
Extremities: No Edema
Data Reviewed
-
Lab Results: Results Reviewed
Medications: Active Meds Reviewed
Chest X-Ray: Report Reviewed
ECG: Report Reviewed and Image Reviewed
--- NOTE | 2024-11-26 05:33 | PTCARENOTE ---
BP down to 78/46 while pt sleeping. Albumin 5% IV 250 mls given per order of PA. PA with lab results this am. Spoke with Dr. Torrez. One unit PRBCs ordered. Will give when ready from Blood Bank. Pt warm, dry. +2 palpable pulses/ Remains in SR 60's.
Sats 98% on 1L/NC. Repeat BP after getting CXR is 102/61.
[2024-11-26] MEDS: CALCIUM GLUCONATE 100 IV (06:04)
--- NOTE | 2024-11-26 06:38 | PTCARENOTE ---
One unit of PRBC checked with 2 RNs and started/transfusing per protocol. See VS. Pt without c/o dyspnea, CP, rash, dizziness, lightheadedness. Ongoing monitoring. CaGluconate 2 GM IV infusing per order.
--- NOTE | 2024-11-26 08:37 | PTCARENOTE ---
Received pt from night RN; pt AAOx3 and resting comfortably in chair; NSR on monitor and VSS; Lungs diminished; IS to 1200; hypoactive bowel sounds; pt voiding clear yellow urine; palpable pluses throughout; no edema noted; all surgical sites C/D/I;
see nursing documentation for further details.
[2024-11-26] MEDS: LOW STRENGTH ASPIRIN 81 MG PO (08:53)
[2024-11-26] MEDS: PROTONIX 40 MG PO (08:53)
[2024-11-26] MEDS: BRILINTA 90 MG PO ×2 (08:53→22:19)
[2024-11-26] MEDS: SENOKOT-S 1 TABLET PO ×2 (08:53→22:19)
[2024-11-26] MEDS: NEURONTIN 100 MG PO ×3 (08:53→22:20)
[2024-11-26] MEDS: PACERONE 200 MG PO ×3 (08:54→22:20)
[2024-11-26] MEDS: BACTROBAN 2% OINTMENT 1 APPLIC NASAL ×2 (08:54→20:39)
[2024-11-26] MEDS: LIDOCAINE 4% PATCH TOPICAL (08:54)
[2024-11-26] MEDS: ZOFRAN 4 MG IV ×2 (09:55→20:24)
--- NOTE | 2024-11-26 10:53 | W.PN.CARDCBS ---
Addendum entered and electronically signed by Shan Dejesus MD 11/26/24 11:09:
I saw and examined the patient.
The CLIENT ADVOCATE or PA's note was reviewed and I agree with the note.
Comment: General: Well developed, well nourished in NAD.
Neck: Supple, no JVD, HJR, carotids +2 B/L, no bruits bilaterally.
Heart: Non displaced PMI, RRR, no murmurs, No S3, S4, no rubs.
Lungs: Scattered rhonchi
Extremities: No clubbing, cyanosis or edema bilaterally.
Neuro: Grossly nonfocal, awake, alert and oriented x3.
Stable cardiology status. Beta-benoit on hold. For transfusion today. Remains in sinus rhythm.
Original Note:
Today's Communication / Plan
-
continue post op care
follow BPs. holding BB
follow Cr
follow hgb. for transfusion today
Impression / Plan
-
PCP: Esau Metzger DO
CDY: Esha Collins MD
79 y/o Persian female status post acute inferior ST elevation OK 09/30/2024 s/p stenting of mid-distal OM 2 on 09/30/2024 thought to be culprit lesion but also found to have heavily calcified LAD, D2, and left circumflex initially medically managed.
She was started on Brilinta and aspirin, statin, beta benoit. Troponin peak 6.54. Echo 10/01/2024 EF 60 to 65%, no regional wall motion abnormalities, mod MR.
She was referred for consideration for robotic MIDCAB in the form of GUILLEN to LAD and thought to be a good candidate. Her history is significant for extensive GI history in the form of transverse colonic mass with bleeding requiring 5 units of PRBC
status post robotic extended right hemicolectomy later found to be invasive colonic adenocarcinoma. Also has history of hypertension, hyperlipidemia, microcytic anemia.
Her robotic GUILLEN to LAD CT was delayed for 30 days for dual antiplatelet therapy post stent..
Surgery was performed by Dr. Torrez on 11/24/2024. She underwent robotic assisted MIDCAB (single-vessel bypass GUILLEN in situ to LAD) she was extubated in the OR. EF was normal preoperatively and postoperatively.
IMPRESSION:
s/p robotic MIDCAB GUILLEN-LAD 11/24/2024
Multivessel CAD
Acute inferior STEMI 09/30/2024 s/p Angioplasty/MILLI- mid/distal OM2
Residual heavily calcified LAD, D2, LCx
HLD
Invasive Colon adenocarcinoma, s/p R colectomy (10/2023)
Acute blood loss anemia thought to be secondary from GI source, 5u pRBC transfusion (10/2023)
Microcytic anemia
Influenza A in Oct 2023 s/p Tamiflu
Language barrier
Echo 10/01/2024 EF 60 to 65%, no regional wall motion abnormalities, mod MR.
PLAN:
-s/p robotic MIDCAB GUILLEN-LAD 11/24/2024
-BP low overnight, asymptomatic. BB on hold. was on toprol 25mg daily, telmisartan/HCTZ prior to admission. resume as able
-remains in SR upon review of tele.
-hgb down to 8.2. on asa, brilinta. for 1 U PRBCs today.
-Cr up to 1.5, possibly hypotension related. will follow
-cardiac rehab
-cont supportive postop care
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
Subjective
Date of Service: November 26, 2024
feeling good
Objective
Labs:
11/26/24 03:20
11/26/24 03:20
Labs
Hgb 8.2 g/dL (12.0-16.0) L 11/26/24 03:20
Hct 24.8 % (37.0-47.0) L 11/26/24 03:20
Plt Count 146 10^3/uL (130-400) 11/26/24 03:20
PT 15.6 Sec (11.4-14.6) H 11/24/24 12:49
INR 1.21 11/24/24 12:49
APTT 32.3 Sec (23.4-35.0) 11/24/24 12:49
Sodium 138 mmol/L (135-145) 11/26/24 03:20
Potassium 5.0 mmol/L (3.5-5.1) 11/26/24 03:20
BUN 51 mg/dl (7-17) H 11/26/24 03:20
Creatinine 1.5 mg/dL (0.6-1.0) H 11/26/24 03:20
Glucose 111 mg/dl (70-99) H 11/26/24 03:20
Vital Signs and I&O:
Vital Signs
Temp Pulse Resp BP Pulse Ox
97.7 F 76 16 149/79 97
11/26/24 08:00 11/26/24 09:36 11/26/24 08:00 11/26/24 09:36 11/26/24 09:50
Vital Signs
Temp Pulse Resp BP Pulse Ox
97.7 F 76 16 149/79 97
11/26/24 08:00 11/26/24 09:36 11/26/24 08:00 11/26/24 09:36 11/26/24 09:50
Intake & Output
11/24/24 11/25/24 11/26/24 11/27/24
07:59 07:59 07:59 07:59
Intake Total 669.1 / 680.3 1752.9 / 1792.9 40 / 40
Output Total 505 / 505 300 / 500 200 / 200
Balance 164.1 / 175.3 1452.9 / 1292.9 -160 / -160
Physical Exam
Physical Exam
GEN: No distress, awake, alert, oriented x3. sitting in chair
HEENT: supple, anicteric, mmm, eomi
LUNGS: CTA B/L, no wheezes
CV: Reg, S1/S2, no murmur
ABD: soft, BS+, NT/ND
EXT: No cyanosis, clubbing, edema
NEURO: Gross non-focal
SKIN: Warm, pink, dry. No rash
--- NOTE | 2024-11-26 11:09 | CM ---
CM following for DC planning needs.
Reviewed initial assessment.
Pt. resides in a private, 2 story home w/ son. Functionally, patient is indep. w/ use of a SPC.
Antic. DC plan is for home w/ CT Transitional Care RN.
CM to follow.
[2024-11-26] MEDS: LASIX 40 MG IV (11:43)
--- NOTE | 2024-11-26 12:41 | PTCARENOTE ---
Assessment unchanged; NSR on monitor and VSS; family at bedside and pt ambulating hallways with RN.
[2024-11-26] MEDS: FERRLECIT 110 MG IV (14:18)
[2024-11-26 14:33] LABS: Hematocrit 34.7 % (37.0-47.0); Hemoglobin 11.4 g/dL (12.0-16.0); Mean Corp Hgb Conc. 32.9 g/dL (33.0-37.0); Mean Corpuscular Hgb 29.3 pg (27.0-31.0); Mean Corpuscular Volume 89.2 fL (81.0-99.0); Mean Platelet Volume 9.7 fL (7.4-10.4); Platelet Count 163 10^3/uL (130-400); Red Blood Cell Count 3.89 10^6/uL (4.20-5.40); Red Cell Dist. Width 14.6 % (11.5-14.5); White Blood Cell Count 7.6 10^3/uL (4.8-10.8)
[2024-11-26 14:42] LABS: Blood Urea Nitrogen 43 mg/dl (7-17); Calcium 9.1 mg/dl (8.4-10.2); Carbon Dioxide 28 mmol/L (22-30); Chloride 103 mmol/L (98-107); Estimated Creatinine Clearance 29 ml/min; Glucose 121 mg/dl (70-99); Potassium 4.2 mmol/L (3.5-5.1); Sodium 139 mmol/L (135-145); eGFR 45.76
--- NOTE | 2024-11-26 16:41 | PTCARENOTE ---
NSR on monitor and assessment unchanged; family at bedside.
[2024-11-26] MEDS: LIPITOR 40 MG PO (17:02)
--- NOTE | 2024-11-26 20:25 | PTCARENOTE ---
Report from CARMENCITA Luciano. Pt in bed, awake, alert, oriented x 4. Primarily speaks Slovenian. Using [employer] for translation. Moves all extremities equally x 4. BBS present. Decreased in bases. Sats 93-95% on room air. SR, rate 60-70's.
Normotensive. For pulse and wound assessments, see flowsheets. Belly soft, nontender. Hypoactive bs x 4. + nausea. Zofran 4 mg IV given. Voids clear yellow urine. Son at bedside.
[2024-11-26] MEDS: NSS IV (20:39)
--- NOTE | 2024-11-26 22:00 | PTCARENOTE ---
Dressing change done to L lateral chest. Moderate amount of light SSG drainage. CHG swab done, vaseline gauze, 4x4 sterile gauze, then ABD pad. Dressed with tegaderm. VS done. Pt remains in SR. On Room air. Sat 93-95%.
--- NOTE | 2024-11-27 02:29 | W.PN.CT ---
Today's Communication / Plan
-
-pod #3
-no issues overnight
-BP much improved after IVF, blood transfusion on 11/26
-diuresed with 40 Lasix after the transfusion (UO 525/2923)
-follow Cr (peak 1.5 and improved to 1.2 on 11/26, Cr 1.0 preop)
-BB held 11/26 d/t low BP. Consider restarting 12.5 mg of Toprol (takes 25 mg at home)
-current meds (ASA, Brilinta, Lipitor, Amio, Protonix)
-encourage IS, OOB
Assessment / Plan
-
Assessment:
-S/p Robotic assisted MIDCAB (single-vessel bypass GUILLEN in situ to LAD)/Robotic assisted harvest of internal mammary artery with anterolateral mini thoracotomy for CABG, by Dr. Torrez, 11/24/24, pod#3
-Coronary artery disease involving the proximal LAD
-Hx inferior STEMI S/P PCI with MILLI to mid-distal OM2, 09/30/24
-Mild central MR
-Milt TR
-LVEF 55-60% per intraop JOHN
-History of colon cancer status post colectomy
-Hypertension
-Hyperlipidemia
-History of salivary gland cancer
-Underweight BMI under 18
-Anemia
-Acute postop blood loss on chronic Anemia -s/p 1 pRBC on 11/26/24
-Acute postop atelectasis
-Acute postop hypermagnesemia
-Acute postop hypovolemia with subsequent hypervolemia
-Acute postop EKG consistent with acute pericarditis (+rub)
-CARLOS, likely prerenal d/t hypotension
Discussed patient care with: Nursing and Care Team
Subjective
Procedure
Robotic assisted MIDCAB (single-vessel bypass GUILLEN in situ to LAD)/Robotic assisted harvest of internal mammary artery with anterolateral mini thoracotomy for CABG, by Dr. Torrez, 11/24/24
-
Date of Service: November 27, 2024
Objective Data
-
PT 15.6 Sec (11.4-14.6) H 11/24/24 12:49
INR 1.21 11/24/24 12:49
APTT 32.3 Sec (23.4-35.0) 11/24/24 12:49
Vital Signs
Vital Signs
Temp Pulse Resp BP Pulse Ox
97.5 F 64 15 129/70 96
11/26/24 22:26 11/26/24 23:00 11/26/24 22:26 11/26/24 22:26 11/26/24 23:00
CT Intake/Output/Weight
11/26/24 11/26/24 11/27/24
06:59 18:59 06:59
Intake Total 1190 / 1762.9 40 / 40
Output Total 175 / 305 2400 / 2925 525 / 2925
Balance 1015 / 1457.9 -2360 / -2885 -525 / -2885
SaO2: 96
Physical Exam
-
General: Awake and AOx3
Cardiovascular: Regular rate & rhythm, No Murmurs and Rub
Respiratory: Decreased Breath Sounds
Incision: Clean (small amount of serosanguinous discharge) and Intact
Abdomen: soft, nontender, nondistended
Extremities: No Edema b/l, DP 2+ b/l
Data Reviewed
-
Lab Results: Results Reviewed
Medications: Active Meds Reviewed
Chest X-Ray: Report Reviewed and Image Reviewed
ECG: Report Reviewed and Image Reviewed
[2024-11-27 02:54] VITALS: BP 125/72
[2024-11-27 04:53] VITALS: BP 133/87
[2024-11-27 05:03] LABS: Hematocrit 31.4 % (37.0-47.0); Hemoglobin 10.4 g/dL (12.0-16.0); Mean Corp Hgb Conc. 33.1 g/dL (33.0-37.0); Mean Corpuscular Hgb 29.4 pg (27.0-31.0); Mean Corpuscular Volume 88.7 fL (81.0-99.0); Mean Platelet Volume 9.9 fL (7.4-10.4); Platelet Count 146 10^3/uL (130-400); Red Blood Cell Count 3.54 10^6/uL (4.20-5.40); Red Cell Dist. Width 14.7 % (11.5-14.5); White Blood Cell Count 5.4 10^3/uL (4.8-10.8)
[2024-11-27] MEDS: TYLENOL 1000 MG PO (05:03)
[2024-11-27 05:11] VITALS: BMI 18.5
--- NOTE | 2024-11-27 05:13 | PTCARENOTE ---
VS done. Labs drawn and sent. Pt helped to standing, weighed on standing scale. Pt back to bed.
[2024-11-27 05:33] LABS: Blood Urea Nitrogen 32 mg/dl (7-17); Calcium 8.3 mg/dl (8.4-10.2); Carbon Dioxide 31 mmol/L (22-30); Chloride 105 mmol/L (98-107); Estimated Creatinine Clearance 33 ml/min; Glucose 100 mg/dl (70-99); Magnesium 2.2 mg/dl (1.6-2.3); Potassium 3.8 mmol/L (3.5-5.1); Sodium 140 mmol/L (135-145); eGFR 56.95
[2024-11-27 06:00] VITALS: BMI 18.5
--- NOTE | 2024-11-27 07:22 | PTCARENOTE ---
Pt helped up to chair. Report to CARMENCITA Reeves.
[2024-11-27 07:57] VITALS: BP 132/84
[2024-11-27] MEDS: PROTONIX 40 MG PO (09:27)
[2024-11-27] MEDS: SENOKOT-S 1 TABLET PO (09:27)
[2024-11-27] MEDS: BRILINTA 90 MG PO (09:28)
[2024-11-27] MEDS: NEURONTIN 100 MG PO (09:28)
[2024-11-27] MEDS: LIDOCAINE 4% PATCH 1 PATCH TOPICAL (09:28)
[2024-11-27] MEDS: PACERONE 200 MG PO (09:28)
[2024-11-27 09:29] VITALS: BP 132/83
[2024-11-27] MEDS: BACTROBAN 2% OINTMENT 1 APPLIC NASAL (09:29)
[2024-11-27] MEDS: TOPROL XL 12.5 MG PO (09:29)
[2024-11-27] MEDS: LOW STRENGTH ASPIRIN 81 MG PO (09:29)
--- NOTE | 2024-11-27 10:27 | PTCARENOTE ---
Pt received from prior RN. Ox3, very pleasant Yoruba speaking woman. NSR on tele, no rub heard. Currently on RA, sat of 95%, getting IS up to 1200mls. L CT dressing cdi. Cardiac rehab currently working with patient. Orders to DC cordis. Call cooper
within reach, family at bedside, pt makes needs known.
[2024-11-27 10:36] VITALS: BP 140/91; BP 165/90; PULSE 75; O2SAT 93; O2SAT 96
--- NOTE | 2024-11-27 13:03 | CM ---
CM following for DC planning needs.
Met w/ patient and son, Chandu @ bedside.
Pt. for DC to home today. Has no complaints or needs per son's translation.
I reviewed DC plan for home w/ CT Transitional Care RN.
No other needs noted.
Plan: HOME today w/ CT RN.
[2024-11-27 13:26] VITALS: BP 126/72
== END 2024-11-27 13:27 | disposition home or self-care (01) | DRG 236 ==
LOC: CVICU 05:54
PROVIDERS: Anesthesiology; Nurse Practitioner; ADMITTING PHYSICIAN Thoracic Surgery (Cardiothoracic Vascular Surgery); CONSULT PHYSICIAN Internal Medicine Critical Care Medicine; FAMILY PHYSICIAN Internal Medicine
PROC: B24BZZ4 Ultrasonography of Heart with Aorta, Transesophageal (ICD-10-PCS; 2024-11-24)
PROC: 02100Z9 Bypass Coronary Artery, One Artery from Left Internal Mammary, Open Approach (ICD-10-PCS; 2024-11-24)
PROC: 8E0W0CZ Robotic Assisted Procedure of Trunk Region, Open Approach (ICD-10-PCS; 2024-11-24)
PROC: 30233N1 Transfusion of Nonautologous Red Blood Cells into Peripheral Vein, Percutaneous Approach (ICD-10-PCS; 2024-11-26)
DX: I25.10 Atherosclerotic heart disease of native coronary artery without angina pectoris (principal); Z68.1 Body mass index [BMI] 19.9 or less, adult; D62 Acute posthemorrhagic anemia; J98.11 Atelectasis; N17.9 Acute kidney failure, unspecified; I30.8 Other forms of acute pericarditis; I10 Essential (primary) hypertension; E78.5 Hyperlipidemia, unspecified; R63.6 Underweight; R73.9 Hyperglycemia, unspecified; E83.41 Hypermagnesemia; E87.70 Fluid overload, unspecified; E86.1 Hypovolemia; I25.2 Old myocardial infarction; Z79.02 Long term (current) use of antithrombotics/antiplatelets; Z79.82 Long term (current) use of aspirin; Z79.899 Other long term (current) drug therapy; Z82.49 Family history of ischemic heart disease and other diseases of the circulatory system; Z85.038 Personal history of other malignant neoplasm of large intestine; Z85.818 Personal history of malignant neoplasm of other sites of lip, oral cavity, and pharynx; Z90.49 Acquired absence of other specified parts of digestive tract; Z95.5 Presence of coronary angioplasty implant and graft
CPT/HCPCS: 36415; 71045; 71046; 80048; 80053; 81003; 81015; 82248; 82330; 82565; 82805; 82947; 82962; 83036; 83735; 84132; 84302; 84520; 85014; 85018; 85025; 85027; 85049; 85610; 85730; 86850; 86900; 86901; 86920; 87070; 93005; 93312; 93320; 93325; 93880; J2916; P9016; P9045

== ENCOUNTER 2025-06-25 13:51 | Observation (INO) | payer MEDICARE, OTHER, SELFPAY ==
[2025-06-25] VITALS (10 sets, daily range): BP systolic 115–155; BP diastolic 60–109
[2025-06-25 10:57] LABS: Hematocrit 34.9 % (37.0-47.0); Hemoglobin 11.6 g/dL (12.0-16.0); Mean Corp Hgb Conc. 33.2 g/dL (33.0-37.0); Mean Corpuscular Volume 88.1 fL (81.0-99.0); Nucleated Red Blood Cells % 0 %; Platelet Count 197 10^3/uL (130-400); Red Cell Dist. Width 13.0 % (11.5-14.5)
[2025-06-25 11:11] LABS: ALT (SGPT) 14 U/L (0-35); AST (SGOT) 24 U/L (14-36); Albumin 4.1 g/dl (3.5-5.0); Alkaline Phosphatase 67 U/L (38-126); Blood Urea Nitrogen 16 mg/dl (7-17); Calcium 9.5 mg/dl (8.4-10.2); Carbon Dioxide 29 mmol/L (22-30); Chloride 106 mmol/L (98-107); Glucose 112 mg/dl (70-99); Potassium 3.7 mmol/L (3.5-5.1); Sodium 141 mmol/L (135-145); Total Protein 7.5 g/dl (6.3-8.2); eGFR 56.60
--- NOTE | 2025-06-25 11:15 | ED.GENMED ---
History of Present Illness
General
Chief Complaint: Chest Pain
Time Seen by Provider: 06/25/25 10:41
Nursing documentation reviewed up to this point in time: agreed with
History of Present Illness
History of Present Illness:
80-year-old female brought to the ER by family for evaluation of chest pain which she describes as a squeezing discomfort in her bilateral lower chest wall which has been constant since last night. Patient had a typical dinner which son describes
as low-fat, mainly rice. Patient was reporting significant indigestion last night after eating. No reported shortness of breath. No syncope or trauma. Symptoms have been persistent all morning. Patient did not try taking anything for her
discomfort. Patient does have a significant prior cardiac history including ACS status post stenting September 2024. Patient does have also prior medical history including colon cancer status post resection. Patient denies nausea or vomiting. No
change in bowel habits. Pain is mainly throughout her anterior and posterior chest. No paresthesias.
Past History
Past History
ED Past Medical History: HTN, Hypercholesterolemia and Other (oral CA)
ED Past Surgical History: Bowel resection
Patient has exhibited threatening behavior?: No
PSI?: No
Social History
Tobacco: Non-smoker
Alcohol: Other
Drug: None
Personal:
Living: with family
Employment: Retired
Family History
Family History: Other (HTN)
Phy Exam
Physical Exam
Physical Exam:
Patient is awake, alert, appears in no acute distress, head is NCAT, PERRL, EOMI mucous membranes moist, conjunctiva pink, heart regular rate and rhythm without murmurs or ectopy, lungs are clear to auscultation without wheezes rales or rhonchi, no
JVD, abdomen is soft and nontender on palpation, extremities without edema, GCS is 15, patient has evidence of cupping across her upper abdomen and her back, pain is reproducible on palpation diffusely throughout her thoracic spine without
step-offs, crepitus or bony deformity on palpation, no abnormal chest wall excursion
Scores
Heart Score for Chest Pain Patients
STEMI patient?: No
History: Moderately Suspicious
ECG: Normal
Age: >/= 65 years
Risk Factors: >/= 3 Risk Factors or History of CAD
Troponin: </= Normal Limit
Heart Score for Chest Pain Patients: 5
Heart Score Risk: 20.3% MACE over next 6 weeks
Course
Orders/Labs/Results
Orders:
Orders
06/25/25
Electrocardiogram (*1) Stat
Comment: DONE
06/25/25 10:32
Electrocardiogram (*1) Urgent
Reason for Study: Chest Pain
EKG- Treatment ONCE
06/25/25 10:43
Cardiac Monitoring- Treatment ONCE
IV Insert/Care/Rem.- Treatment PRN
CMP [Comprehensive Metabolic Panel] Urgent
Complete Blood Count/With Diff Urgent
Lipase Urgent
Troponin I Urgent
CR Chest - 2 Views Urgent
Comment:
Reason For Exam: chest pain
Pulse Ox/cont/shift [RESP] Stat
Quantity: 1
06/25/25 11:28
Add On- LAB Urgent
Tests Added?: lipase
06/25/25 11:36
US Abdomen Complete/Upper Urgent
Comment:
Reason For Exam: upper abdominal pain
06/25/25 11:38
Famotidine [Pepcid] 20 mg IV NOW STA
06/25/25 12:53
Aspirin 325 mg PO NOW STA
Morphine Sulfate 2 mg IV NOW STA
Abnormal Lab Results
06/25/25
10:43
WBC 4.2 L 10^3/uL
(4.8-10.8)
RBC 3.96 L 10^6/uL
(4.20-5.40)
Hgb 11.6 L g/dL
(12.0-16.0)
Hct 34.9 L %
(37.0-47.0)
Absolute Lymphs (auto) 0.9 L 10^3/uL
(1.2-3.4)
Glucose 112 H mg/dl
(70-99)
06/25/25 10:43
06/25/25 10:43
CBC reassuring, patient has chronic anemia with last hemoglobin 10.4 in November 2024-no indication for blood transfusion. Initial troponin negative which is very reassuring giving symptoms have been present for several hours.
Vital Signs
Initial and Last Documented VS:
Initial Vital Signs
Temp Pulse Resp BP Pulse Ox
97.7 F 70 18 149/80 97
06/25/25 10:15 06/25/25 10:15 06/25/25 10:15 06/25/25 10:15 06/25/25 10:15
Last Documented Vital Signs
Temp Pulse Resp BP Pulse Ox
97.7 F 62 18 150/60 98
06/25/25 10:15 06/25/25 13:00 06/25/25 10:15 06/25/25 13:00 06/25/25 13:00
MDM/Problems Addressed
Differential Diagnosis Includes:
Differential diagnosis to consider but not limited to ACS, gastritis, esophageal spasm, dissection along with other etiologies considered
Chronic conditions affecting care:
ACS, colon cancer, hypertension
*Radiology
Radiology exam reviewed: preliminary read by ED provider (I independently viewed and interpreted two-view chest showing normal cardiac silhouette, no infiltrate, improved compared to prior from 11/27/2024-pleural effusions have resolved) and
radiology read reviewed (No acute findings on two-view chest x-ray. Right upper quadrant ultrasound IMPRESSION: Mild cholelithiasis. No secondary findings to suggest acute cholecystitis. Top normal caliber of the common bile duct. )
*Pulse Oximetry
SaO2: 97
Oxygen Mode of Delivery: Room air
Patient hypoxic: no
*EKG
Interpreted by ED Provider?: Yes (I independently viewed and interpreted twelve-lead EKG showing normal sinus rhythm, normal axis, normal intervals, no ST elevation, this is a normal tracing, similar to prior from 1014 this morning and 11/24/2024)
*Ultrasonic Hand Solderer Interpretation
Rate: normal (I independently viewed and interpreted rhythm strip showing normal sinus rhythm, no ectopy)
*Critical Care Note
Total Time (30-74mins, 75-104mins- exclusive of procedures): Not Applicable
Data Reviewed
Review of Other/Old Records Reveals: Progress Notes (I reviewed inpatient progress note from Dr. Dejesus dated 11/26/2024. Patient experienced an inferior STEMI 09/30/2024 treated with stenting. She underwent robotic GUILLEN during this
hospitalization) and Discharge Summary
Update Note
Update Note:
Will obtain ultrasound right upper quadrant to assess for biliary colic as etiology of symptoms given negative troponin and normal chest x-ray.
1313: I updated patient and son present at bedside with all test results. Ultrasound shows cholelithiasis only. Initial Trope reassuring. Patient still with significant pain. I discussed with them benefit of admission for further evaluation not
only of possible biliary colic or other etiology of her discomfort. They agree with plan. Morphine and aspirin are ordered for her discomforts. I reviewed full patient presentation with hospitalist who accepts patient for admission.
ED Attending Note
-
Portions of this chart may have been created with voice recognition software.� Occasional wrong word or��sound alike� substitutions may have occurred due to the inherent limitations of voice recognition software.
Discharge Plan
Departure
Prescriptions:
No Action
atorvastatin [Lipitor] 40 mg Tablet
40 mg PO QPM
aspirin 81 mg tablet,chewable
81 mg PO DAILY
metoprolol succinate 25 mg tablet extended release 24 hr
25 mg PO DAILY
acetaminophen 325 mg Tablet
650 mg PO Q4HPRN PRN (Reason: mild pain,headache,temp >101F ) Qty: 0 0RF
Brilinta 90 mg Tablet
90 mg PO BID Qty: 180 3RF
furosemide [Lasix] 20 mg tablet
20 mg PO DAILY Qty: 5 0RF
potassium chloride 10 mEq tablet extended release
10 meq PO DAILY Qty: 5 0RF
Referrals:
Micah Metzger MD [Family Provider, Internal Medicine]
Interventions
Interventions:
*General Assessment Last Done: 06/25/25 10:15
*Neglect/Abuse Screening Last Done: 06/25/25 12:25
*ED- Fall Risk Assessment Last Done: 06/25/25 10:31
*ED COVID-19 Vaccine History Last Done: 06/25/25 10:31
ED- Cardiac Assessment Last Done: 06/25/25 10:31
Discharge Date and Time
Print Language: Italian
[2025-06-25 11:22] LABS: Troponin I < 0.012 ng/ml
[2025-06-25 12:14] LABS: Lipase 94 U/L (23-300)
[2025-06-25] MEDS: PEPCID 20 MG IV (12:22)
[2025-06-25] MEDS: ASPIRIN 325 MG PO (13:14)
[2025-06-25] MEDS: MORPHINE SULFATE 2 MG IV (13:14)
--- NOTE | 2025-06-25 13:16 | HPS.HSE ---
Family Physician
-
Family Physician: Micah Metzger
Chief Complaint
-
Chest pain
History of Present Illness
80-year-old female Portuguese speaking with known history of coronary artery disease status post stenting and robotic CABG in November of this year, presented to the hospital with her son who helped out translate complaining of the intermittent
centrally located chest pain radiating mostly to the left around 3/4, occasionally triggered by exertion and eases up when he rises, denies associated sweating, nausea or any vomiting or any changes to urine color or any bleeding event.
Also complaining of back pain and paraspinal area worse when she hunches over and eases up when she sits straight. Denies any weakness or numbness in extremity or any urinary or bowel incontinence saddle anesthesia, no trauma or accident.
Admit she is compliant with medication.
In the ER had ultrasound of the gallbladder which basically showed a gallstone with no dilated biliary duct and no evidence of cholecystitis.
Currently asymptomatic.
Medical History
Past Medical History
Past Medical History: Reports Other
Additional Past Medical History:
Past medical history and archive reviewed:
Coronary artery disease and history of STEMI status post stenting and CABG, CABG was in November 2020, stent was in LAD
Hypertension
Dyslipidemia
Invasive colon cancer
Surgical history:
Cardiac cath and stenting
On robotic bypass
Colectomy
Social history: Lives with the family independently, no smoking no alcohol or drug use.
Family history: Positive for hypertension coronary artery disease
Past Surgical History: Reports Other
Social History
Unable to obtain full social history at this time due to: Other
Family History
Family History: Other
Allergies / Home Medications
Allergies reflects when Allergies were last updated in [employer].
Home Medications with original date entered in [employer]
Allergy/Medication List:
Allergies
Allergy/AdvReac Type Severity Reaction Status Date / Time
No Known Allergies Allergy Verified 06/25/25 10:15
Home Medications
atorvastatin 40 mg tablet (Lipitor) 40 mg PO QPM High Cholesterol 10/15/23
aspirin 81 mg chewable tablet 81 mg PO DAILY Blood Clot Prevention/Tx 11/25/24
ticagrelor 90 mg tablet (Brilinta) 90 mg PO BID Blood clot prevention/tx #180 tabs 11/25/24
metoprolol succinate 50 mg tablet,extended release 24 hr (Toprol XL) 50 mg PO DAILY 06/25/25
telmisartan 40 mg-hydrochlorothiazide 12.5 mg tablet 1 tab PO DAILY 06/25/25
Review of Systems
-
A 12 point ROS was completed and negative except as noted: Yes
Physical Exam
Vital Signs
Vital Signs
Temp Pulse Resp BP Pulse Ox
97.7 F 62 18 150/60 98
06/25/25 10:15 06/25/25 13:00 06/25/25 10:15 06/25/25 13:00 06/25/25 13:00
Physical exam:
General: Awake, alert and oriented x3, not in distress and holds appropriate conversation.
HEENT: No active discharge, ecchymosis or bruising, moist lips, tongue and mucous membrane.
Eyes: No discharge or red conjunctiva, no nystagmus, pupils are reactive and equal
Neck:Supple, no JVD no bruit no goiter.
Respiratory: Normal AP contour and diameter, normal chest wall movement, normal respiratory effort, no respiratory distress,
Lungs: Good air entry bilaterally, no wheezing or rhonchi, no rales or crackles
Heart: S1, S2 regular, normal rate, no added sound.
Gastrointestinal: Positive bowel sounds, soft, nontender, no guarding or rigidity or organomegaly
Musculoskeletal: , no chest wall abnormality or tenderness. All joints and extremities have good range of motion,-6 round ecchymosis on the back side of the cultural pain management and they do do the suction, area of tenderness and paraspinal area
with no ulceration no redness,
Extremities: No pitting edema, good peripheral pulses, good range of motion
Skin: Warm and dry, no ulceration, normal color.
Neurological: Awake, alert and oriented x3, moves extremities freely, speech clear and comprehensive, good muscle tone,
Psychiatric: Normal mood, normal thought and judgment, normal affect,
Physical Exam
General: Other
Laboratory Results
-
06/25/25 10:43
06/25/25 10:43
Laboratory Results
Total Bilirubin 0.6 mg/dl (0.2-1.3) 06/25/25 10:43
AST 24 U/L (14-36) 06/25/25 10:43
ALT 14 U/L (0-35) 06/25/25 10:43
Alkaline Phosphatase 67 U/L (38-126) 06/25/25 10:43
Troponin I < 0.012 ng/ml 06/25/25 10:43
Lipase Cancelled 06/25/25 10:53
CXR: No acute cardiopulmonary process.
Minor peribronchial nodularity in the bilateral lung bases, probably secondary to chronic endobronchial infection in correlation with previous examinations.
GB US: Mild cholelithiasis. No secondary findings to suggest acute cholecystitis. Top normal caliber of the common bile duct.
EKG showed normal sinus rhythm low at 172, HI 164, QT 398 nonspecific T wave abnormality in anterior leads.
Data Reviewed
-
Diagnostic Radiology: Image Personally Visualized and interpreted, Discussed with Patient and Discussed with Family
Medical Tests (Nuc Med, Echo, EKG etc): Report Reviewed by me
Lab Data: Labs Reviewed by me, Discussed with Patient and Discussed with Family
Old Records: Reviewed
Impression/Plan
-
IMPRESSION:
80-year-old Portuguese speaking with known history of coronary artery disease status post stent robotic CABG presented complaining of centrally located chest pain since the beginning of June, so coronary artery disease may be concerning specially
she had a 50 to 60% lesion in DCA in the last cardiac cath while other cause like GERD or gastritis or musculoskeletal all possibilities.
Acute on recurrent chest pain:
-Coronary artery disease may need to be considered rule out
-Other possibly could be GERD, gastritis or musculoskeletal, doubt pulmonary embolism as heart rate and oxygenation is normal.
- Cardiology consult and reach out to cardiology
- Follow the troponin trend
- Continue beta-benoit, aspirin, Brilinta and statin
- If cardiac workup is negative then may consider GI or gallbladder but unlikely gallbladder cause.
Gallstone:
-Incidental finding seen on the ultrasound with no evidence of biliary dilation or cholecystitis
-If cardiac workup is negative and patient still symptomatic may consider surgery,
Coronary artery disease status post CABG:
- Continue beta-benoit, statin, aspirin and Brilinta.
- Follow the troponin trend
Hypertension:
- Continue metoprolol succinate 50 daily and telmisartan hydrochlorothiazide
- Monitor vital signs closely
All discussed with the patient and her son available to translate and expressed understanding of the question answered
CODE STATUS full code
DVT prophylaxis Lovenox
--- NOTE | 2025-06-25 14:16 | CM ---
CM reviewed chart and met with pt and son bedside in ED. Pt is Italian speaking. She lives with her son Chandu in 2 story home, 2 [address], has first floor half bath, second floor BR/full Bath.
Independent in ADLs, personal care and ambulation with RW or cane. Pt's son states she does not walk around too much.
No hx VN and SNF.
OBS form reviewed and signed. Son declined a copy.
PCP: Micah Metzger
Pharmacy: [facility]
CM will continue to follow for any discharge planning needs.
--- NOTE | 2025-06-25 15:43 | CON.CAR ---
Addendum entered and electronically signed by Devon Moreno DO 06/25/25 21:17:
I saw and examined the patient.
The Die Cast Patternmaker's note was reviewed and I agree with the note.
Comment:
Plan:
Chest pain is noncardiac and has been going on for a long time.
Initial troponin negative. If second troponin negative, then stable for d/c from a cardiac standpoint.
Recommended further GI regarding epigastric symptoms
Will move up her current follow up.
Discussed with ER, hospital service and son via phone.
.
Original Note:
Consultation
Consultation Request
Date/Time Consultation Requested: 06/25/2025
Date/Time Consultation Performed: 06/25/2025
Requesting Provider: Dr. Gonzalez in the ER
Performing Provider: Dr. Moreno
Reason for Consultation: Chest pain
Medical History
-
History of Present Illness:
Patient came to the ER today with chest pain that started after dinner last night and cardiology has been consulted. Using the language line for German translation services I had an in-depth conversation with the patient. Patient says chest pain
started at the beginning of June. Pain is always associated with eating, pain usually happens after eating and last for hours at a time. Pain seem to be better for the last few days and then came back and was worse than ever last night. The
pain was intense and some of the worst pain she has ever had in her stomach back and shoulders. The pain is different from what she experienced at the time of her [place]. In the ER her initial troponin was undetectable and ECG without acute ischemic
change. Patient was given morphine 2 mg IV x 1 and pain improved. Prior to my arrival the patient had been seen by ER attending and then hospitalist for admission, at that time communication was primarily through the patient's son and a plan was
made for admission and workup for noncardiac causes of chest pain. Talking with patient now using translation services the patient says she does not want to be admitted and wishes to be discharged to home and have a sooner cardiology appointment.
PMH:
CAD
s/p IWMI and 3.0 x 38 mm Atco MILLI to the mid and distal OM 2 09/30/2024
s/p robotic MIDCAB GUILLEN-LAD 11/24/2024
Hyperlipidemia
Invasive Colon adenocarcinoma, s/p right colectomy (10/2023)
Language barrier, ESL
Past Medical History
Past Medical History: Other (In HPI)
Past Surgical History: Bowel Resection (Hemicolectomy) and Cardiac (OM1 stent 09/2024 then MIDCAB with GUILLEN to LAD 11/2024)
Social History
Tobacco: Non-Smoker
Alcohol: None
Drug: None
Living: With Family
Family History
Family History: CAD
Allergies / Home Medications
Allergy/AdvReac Type Severity Reaction Status Date / Time
No Known Allergies Allergy Verified 06/25/25 10:15
�Medication �Instructions �Recorded �Confirmed �Type
atorvastatin 40 mg tablet (Lipitor) 40 mg PO QPM High Cholesterol 10/15/23 06/25/25 History
aspirin 81 mg chewable tablet 81 mg PO DAILY Blood Clot 11/25/24 06/25/25 History
Prevention/Tx
ticagrelor 90 mg tablet (Brilinta) 90 mg PO BID Blood clot 11/25/24 06/25/25 Rx
prevention/tx #180 tabs
metoprolol succinate 50 mg 50 mg PO DAILY 06/25/25 06/25/25 History
tablet,extended release 24 hr
(Toprol XL)
telmisartan 40 1 tab PO DAILY 06/25/25 06/25/25 History
mg-hydrochlorothiazide 12.5 mg
tablet
Review of Systems
-
History Source: Patient
All other systems: Negative unless noted
Physical Exam
Vital Signs
Temp Pulse Resp BP Pulse Ox
97.7 F 57 18 146/82 96
06/25/25 10:15 06/25/25 15:00 06/25/25 10:15 06/25/25 15:00 06/25/25 15:00
GEN: NAD. AAOx3
HEENT: EOMI, MMM
LUNGS: RA. CTA B/L, no wheeze
CV: SR on tele. Reg, S1/S2, no murmur
ABD: soft, BS+, NT, ND
EXT: No clubbing, cyanosis, lesions or edema B/L
NEURO: Gross non-focal
SKIN: Warm, dry and pink. No rash
Lab Results
06/25/25 10:43
06/25/25 10:43
Troponin I < 0.012 ng/ml 06/25/25 10:43
Impression / Plan
-
PCP: Esau Metzger DO
CDY: Esha Collins MD
Impression:
Presented to the ER with chest pain on 1125
Intermittent chest pain since 06/15/2025
Undetectable troponin
CAD
s/p IWMI and 3.0 x 38 mm Marcelo MILLI to the mid and distal OM 2 09/30/2024
s/p robotic MIDCAB GUILLEN-LAD 11/24/2024
Hyperlipidemia
Invasive Colon adenocarcinoma, s/p right colectomy (10/2023)
Language barrier, ESL
Echo 10/01/2024 EF 60 to 65%, no regional wall motion abnormalities, mod MR.
Plan:
-Patient came to the ER today with chest pain that started after dinner last night and cardiology has been consulted. Using the language line for German translation services I had an in-depth conversation with the patient. Patient says chest pain
started at the beginning of June. Pain is always associated with eating, pain usually happens after eating and last for hours at a time. Pain seem to be better for the last few days and then came back and was worse than ever last night. The
pain was intense and some of the worst pain she has ever had in her stomach back and shoulders. The pain is different from what she experienced at the time of her [place]. In the ER her initial troponin was undetectable and ECG without acute ischemic
change. Patient was given morphine 2 mg IV x 1 and pain improved. Prior to my arrival the patient had been seen by ER attending and then hospitalist for admission, at that time communication was primarily through the patient's son and a plan was
made for admission and workup for noncardiac causes of chest pain. Talking with patient now using translation services the patient says she does not want to be admitted and wishes to be discharged to home and have a sooner cardiology appointment.
-ECG reviewed by me is SR without acute ischemic change
-Initial troponin undetectable despite chest pain that started more than 12 hours ago. Check 2nd troponin now, ordered by me and coordinated with nursing staff.
-If second troponin is undetectable then patient can be discharged home from a cardiac standpoint and follow-up in our office. Patient is currently not scheduled to be seen until 10/2025 and we will work on moving up that appointment and call
patient at home.
-Reviewed with patient that she had evidence of cholelithiasis on abdominal ultrasound and that if she chose to be admitted she could have workup for other causes of noncardiac chest pain, the patient reports that she feels better and does not want
to be admitted to the hospital. I reviewed this with nursing and also with the hospitalist who had admitted the patient at direction of ER and plan will be for discharge pending troponin.
-Patient will continue with her usual doses of aspirin 81 mg daily and Brilinta 90 mg BID
-Patient will continue with her usual dose of Toprol XL 50 mg daily
-When patient was seen in the office on 02/19/2025 she was instructed to stop taking Brilinta and to continue with aspirin 81 mg daily, the patient reports she has continued on DAPT. We will address this at the upcoming office visit, I was not
confident that we could make a change in the ER today that the patient would be able to reliably follow at home.
[2025-06-25 17:12] LABS: Troponin I < 0.012 ng/ml
[2025-06-25 17:18] LABS: D-Dimer 0.80 ug/mlFEU (0.00-0.50)
--- NOTE | 2025-06-25 17:52 | W.DS.TRANS ---
DC Summary - Roofing Contractor
-
Discharge Instructions:
Discharge Diagnosis/Procedures Chest pain
Diet Low Cholesterol,Low Sodium
Additional Diets Encourage oral hydration,
Instructions:
Stand-Alone Forms:
Changes to Home Medications: No
Discharge Medications:
DC Medications w/original date entered in [employer]
atorvastatin 40 mg tablet (Lipitor) 40 mg PO QPM High Cholesterol 10/15/23
aspirin 81 mg chewable tablet 81 mg PO DAILY Blood Clot Prevention/Tx 11/25/24
ticagrelor 90 mg tablet (Brilinta) 90 mg PO BID Blood clot prevention/tx #180 tabs 11/25/24
metoprolol succinate 50 mg tablet,extended release 24 hr (Toprol XL) 50 mg PO DAILY 06/25/25
telmisartan 40 mg-hydrochlorothiazide 12.5 mg tablet 1 tab PO DAILY 06/25/25
Home Medication Changes
Pending Results: No
Additional Pending Results:
Physical exam:
General: Awake, alert and oriented x3, not in distress and holds appropriate conversation.
HEENT: No active discharge, ecchymosis or bruising, moist lips, tongue and mucous membrane.
Eyes: No discharge or red conjunctiva, no nystagmus, pupils are reactive and equal
Neck:Supple, no JVD no bruit no goiter.
Respiratory: Normal AP contour and diameter, normal chest wall movement, normal respiratory effort, no respiratory distress,
Lungs: Good air entry bilaterally, no wheezing or rhonchi, no rales or crackles
Heart: S1, S2 regular, normal rate, no added sound.
Gastrointestinal: Positive bowel sounds, soft, nontender, no guarding or rigidity or organomegaly
Musculoskeletal: , no chest wall abnormality or tenderness. All joints and extremities have good range of motion,-6 round ecchymosis on the back side of the cultural pain management and they do do the suction, area of tenderness and paraspinal area
with no ulceration no redness,
Extremities: No pitting edema, good peripheral pulses, good range of motion
Skin: Warm and dry, no ulceration, normal color.
Neurological: Awake, alert and oriented x3, moves extremities freely, speech clear and comprehensive, good muscle tone,
Psychiatric: Normal mood, normal thought and judgment, normal affect,
Condition on discharge: Awake, alert and oriented x3, answer question properly, able to make own decision and take care of activities of daily living, speech clear and comprehensive, continent of the bowel and bladder, ambulate without assistant principal,
goes home where lives with the family independently.
--- NOTE | 2025-06-25 17:55 | W.DCSUMMARY ---
Discharge Summary
Discharge Data
Date of Admission: 06/25/25
Date of Discharge: 06/25/25
-
Pending Results: No
Hospital Course
Discharging Physician : Dr. Fadia Phoenix
Disposition :
Primary care physician :
Principal Discharge diagnosis :
1. Chest pain, likely musculoskeletal well cardiac was ruled out by negative exam and EKG and cleared by cardiology
2. Musculoskeletal back pain.
3. Coronary artery disease status post stenting in
4. Hypertension
5. Dyslipidemia
6. Colon cancer
7. Pulmonary nodule, follow-up with the primary care and may need regular CAT scan to follow-up
8. Gallstone: May need a referral to surgery as an outpatient
Chronic Discharge diagnosis :
History of present illness:
80-year-old female Danish speaking with known history of coronary artery disease status post stenting and robotic CABG in November of this year, presented to the hospital with her son who helped out translate complaining of the intermittent
centrally located chest pain radiating mostly to the left around 3-4/10, occasionally triggered by exertion and eases up when he rises, denies associated sweating, nausea or any vomiting or any changes to urine color or any bleeding event.
Also complaining of back pain and paraspinal area worse when she hunches over and eases up when she sits straight. Denies any weakness or numbness in extremity or any urinary or bowel incontinence saddle anesthesia, no trauma or accident.
Admit she is compliant with medication.
In the ER had ultrasound of the gallbladder which basically showed a gallstone with no dilated biliary duct and no evidence of cholecystitis.
Currently asymptomatic.
Hospital Course :
Patient admitted for recurrent chest pain since beginning of June, with her known history of coronary artery disease, that was again concerning for her and her family. While patient denies taking any spicy or sour food or any NSAID, also
complaining of back pain mostly paraspinal bilaterally on entire back and she used some of those cultural heat suctioning and she left saccular ecchymosis and marking while on palpation she felt is better also when we straighten her back from
hunching over she felt her back pain is better.
Seen by cardiology and discussed with cardiology from the point of view of the next Troponin is negative patient can be discharged from the point of view specially ultrasound of the gallbladder showed a some gallstone with no evidence of
cholecystitis or dilated biliary system elevated transaminase.
D-dimer is mildly elevated at 0.8 but she has no chest pain hypoxia or tachycardia therefore pulmonary embolism unlikely and specially patient is wellness in the hospital she wanted to go home. But we still do the stat CTA chest which showed no
event of pulmonary embolism also some pulmonary nodule and we recommended as discussed with the patient and the family to follow-up with the primary care physician
Patient condition discussed with her through her son who is translating advise about return back to the hospital if symptoms return and follow-up with the primary care physician over the next few days and may need to be referred to surgery.
Advised about taking Tylenol and ibuprofen as needed with food
Changes to Home Medications: No
Discharge Medications:
DC Medications w/original date entered in [employer]
atorvastatin 40 mg tablet (Lipitor) 40 mg PO QPM High Cholesterol 10/15/23
aspirin 81 mg chewable tablet 81 mg PO DAILY Blood Clot Prevention/Tx 11/25/24
ticagrelor 90 mg tablet (Brilinta) 90 mg PO BID Blood clot prevention/tx #180 tabs 11/25/24
metoprolol succinate 50 mg tablet,extended release 24 hr (Toprol XL) 50 mg PO DAILY 06/25/25
telmisartan 40 mg-hydrochlorothiazide 12.5 mg tablet 1 tab PO DAILY 06/25/25
Home Medication Changes
Pending Results: No
Additional Pending Results:
Physical exam:
General: Awake, alert and oriented x3, not in distress and holds appropriate conversation.
HEENT: No active discharge, ecchymosis or bruising, moist lips, tongue and mucous membrane.
Eyes: No discharge or red conjunctiva, no nystagmus, pupils are reactive and equal
Neck:Supple, no JVD no bruit no goiter.
Respiratory: Normal AP contour and diameter, normal chest wall movement, normal respiratory effort, no respiratory distress,
Lungs: Good air entry bilaterally, no wheezing or rhonchi, no rales or crackles
Heart: S1, S2 regular, normal rate, no added sound.
Gastrointestinal: Positive bowel sounds, soft, nontender, no guarding or rigidity or organomegaly
Musculoskeletal: , no chest wall abnormality or tenderness. All joints and extremities have good range of motion,-6 round ecchymosis on the back side of the cultural pain management and they do do the suction, area of tenderness and paraspinal area
with no ulceration no redness,
Extremities: No pitting edema, good peripheral pulses, good range of motion
Skin: Warm and dry, no ulceration, normal color.
Neurological: Awake, alert and oriented x3, moves extremities freely, speech clear and comprehensive, good muscle tone,
Psychiatric: Normal mood, normal thought and judgment, normal affect,
Condition on discharge: Awake, alert and oriented x3, answer question properly, able to make own decision and take care of activities of daily living, speech clear and comprehensive, continent of the bowel and bladder, ambulate without assistant store manager trainee,
goes home where lives with the family independently.
Discharge Plan
-
Patient Disposition: Home (Routine Discharge)
Discharge Diagnosis/Procedures: Chest pain
Condition: Fair
Diet: Low Cholesterol and Low Sodium
Additional Diets: Encourage oral hydration,
Referrals:
Micah Metzger MD [Family Provider, Internal Medicine] - in three to four days
Doris Mathis CRNP [Specified Professional Personl, Cardiology] - 08/04/25 9:20 am
Referral Note: You have a cardiology follow-up appointment at the [place] office with Dr. Collins's nurse practitioner, Doris. Please call with questions
Additional Discharge Medication Instructions: - Encourage oral hydration
- Return back to the hospital if symptoms returns
- Follow-up with primary care and cardiology as instructed
Prescriptions:
Continued
atorvastatin [Lipitor] 40 mg Tablet
40 mg PO QPM
aspirin 81 mg tablet,chewable
81 mg PO DAILY
ticagrelor [Brilinta] 90 mg Tablet
90 mg PO BID Qty: 180 3RF
telmisartan-hydrochlorothiazid 40-12.5 mg Tablet
1 tab PO DAILY
metoprolol succinate [Toprol XL] 50 mg Tablet Extended Release 24 Hr
50 mg PO DAILY
Discharge Orders:
Discharge Patient (As Directed); Ordered 06/25/25
Ordered By: Fadia Phoenix
Discharge Date and Time
Print Language: Danish
== END 2025-06-25 21:00 | disposition home or self-care (01) ==
LOC: ED 13:51
PROVIDERS: ADMITTING PHYSICIAN Internal Medicine; CONSULT PHYSICIAN Nuclear Medicine Nuclear Cardiology; EMERGENCY PHYSICIAN Emergency Medicine; FAMILY PHYSICIAN Internal Medicine
DX: R07.89 Other chest pain (principal); I10 Essential (primary) hypertension; E78.00 Pure hypercholesterolemia, unspecified; I25.10 Atherosclerotic heart disease of native coronary artery without angina pectoris; I25.2 Old myocardial infarction; K80.20 Calculus of gallbladder without cholecystitis without obstruction; M54.6 Pain in thoracic spine; R91.1 Solitary pulmonary nodule; Z60.3 Acculturation difficulty; Z79.02 Long term (current) use of antithrombotics/antiplatelets; Z79.82 Long term (current) use of aspirin; Z79.899 Other long term (current) drug therapy; Z85.038 Personal history of other malignant neoplasm of large intestine; Z95.1 Presence of aortocoronary bypass graft; Z95.5 Presence of coronary angioplasty implant and graft
CPT/HCPCS: 71046; 71275; 76700; 80053; 83690; 84484; 85025; 85379; 93005; 99285; Q9967

== ENCOUNTER 2025-08-07 13:56 | Inpatient (IN) | payer MEDICARE, OTHER, SELFPAY ==
[2025-08-07] VITALS (8 sets, daily range): BP systolic 121–140; BP diastolic 64–81; BMI 17.0; BMI 16.9
--- NOTE | 2025-08-07 07:50 | EDRN ---
Hannah MANTILLA currently at the pts bedside
[2025-08-07 07:58] LABS: Hematocrit 32.6 % (37.0-47.0); Hemoglobin 10.4 g/dL (12.0-16.0); Mean Corp Hgb Conc. 31.9 g/dL (33.0-37.0); Mean Corpuscular Volume 91.1 fL (81.0-99.0); Nucleated Red Blood Cells % 0 %; Platelet Count 215 10^3/uL (130-400); Red Cell Dist. Width 14.1 % (11.5-14.5)
[2025-08-07] MEDS: OMNIPAQUE 50 ML PO (08:02)
[2025-08-07] MEDS: ZOFRAN 4 MG IV (08:02)
[2025-08-07] MEDS: MORPHINE SULFATE 2 MG IV (08:02)
[2025-08-07] MEDS: NSS 500 IV (08:03)
[2025-08-07 08:22] LABS: ALT (SGPT) 23 U/L (0-35); AST (SGOT) 33 U/L (14-36); Albumin 4.0 g/dl (3.5-5.0); Alkaline Phosphatase 155 U/L (38-126); Blood Urea Nitrogen 17 mg/dl (7-17); Calcium 9.1 mg/dl (8.4-10.2); Carbon Dioxide 27 mmol/L (22-30); Chloride 103 mmol/L (98-107); Estimated Creatinine Clearance 33 ml/min; Glucose 129 mg/dl (70-99); Magnesium 2.1 mg/dl (1.6-2.3); Potassium 3.5 mmol/L (3.5-5.1); Sodium 135 mmol/L (135-145); Total Protein 7.5 g/dl (6.3-8.2); eGFR > 60.00
[2025-08-07 08:44] LABS: Lipase 3041 U/L (23-300)
--- NOTE | 2025-08-07 08:58 | EDRN ---
medications reconciliation performed with the pts son who is aware of the pts medications
--- NOTE | 2025-08-07 09:15 | ED.GENMED ---
History of Present Illness
<Hannah Montana PA-C - Last Filed: 08/07/25 14:06>
General
Chief Complaint: Abdominal Pain
Source: patient
Exam Limitations: none
Time Seen by Provider: 08/07/25 07:42
Nursing documentation reviewed up to this point in time: agreed with
History of Present Illness
History of Present Illness:
see MDM
Past History
<ROXIE Morel Last Filed: 08/07/25 14:06>
Past History
ED Past Medical History: HTN, Hypercholesterolemia and Other (oral CA)
ED Past Surgical History: Bowel resection
Patient has exhibited threatening behavior?: No
PSI?: No
Social History
Tobacco: Non-smoker
Alcohol: Other
Drug: None
Personal:
Living: with family
Employment: Retired
Family History
Family History: Other (HTN)
Review of Systems
<ROXIE Morel Last Filed: 08/07/25 14:06>
Review of Systems
Allergies reviewed?: Yes
All Other Systems: Not applicable
Phy Exam
<ROXIE Morel Last Filed: 08/07/25 14:06>
Physical Exam
Physical Exam:
GENERAL: Alert , in no apparent distress
EYE: pupils equal and reactive sclera nonicteric
NECK: Supple
ENT: o/p clr, mmm.
CARDIAC: Regular rate and rhythm .
LUNGS: Clear breath sounds bilaterally, no acute respiratory distress, no wheezes/rales/rhonchi
ABDOMEN: Soft, tender epigastric region and mildly left upper quadrant, no Lee sign, no r/g, no cvat, normal bowel sounds
NEUROLOGICAL: Alert and oriented, no focal neuro deficits
SKIN: Warm and dry, skin intact. Pale
MUSCULOSKELETAL: No edema, well perfused. neg tre's sign
PSYCH: Normal and appropriate interaction.
Course
<Hannah Montana PA-C - Last Filed: 08/07/25 14:06>
Orders/Labs/Results
Orders:
Orders
08/07/25 07:43
Complete Blood Count/With Diff Urgent
Comprehensive Metabolic Panel Urgent
Lipase Urgent
Magnesium Urgent
08/07/25 07:56
Iohexol [Omnipaque] See Protocol PO NOW STA
08/07/25 07:57
CT Abd/pel W Iv And Oral Contr Urgent
Comment:
Reason For Exam: left upper quad pain, flank pain, weight loss
Morphine Sulfate 2 mg IV NOW STA
Ondansetron Injectable [Zofran] 4 mg IV NOW STA
08/07/25 07:58
0.9% Sodium Chloride 500 ml [Nss] 500 ml IV BOLUS
08/07/25 10:09
Urinalysis Reflex To Culture Urgent
Date Specimen was Collected: 08/07/25
Time Specimen was Collected: 07:41
08/07/25 13:04
Admit/Transfer Patient As Directed
Co-Sign Provider:
Level of Care: Inpatient admission
Assign to:: Medical/Surgical
Physician / Group: gray deluna
Diagnosis: acute pancreatitis
Reason for Hospitalization: acute pancreatitis
Expected length of stay greater than two midnights?: Yes
ELOS- Estimated Length of Stay in days: 3
I certify the patient meets the requirements for IP care: Yes
PRN Pain Medication Management As Directed
May give lesser potent ordered pain med per pt: Yes
preference::
Protocol:: Medication orders for pain may be administered in a
manner that supports deferring to patient preference
when the pt is:
- Requesting an ordered lesser potent pain medication.
Least to most potent pain medications are defined
as: acetaminophen < NSAID < tramadol < opioids
(morphine, oxycodone, hydromorphone).
- Requesting a lesser dose of the same medication IF
ORDERED.
- Requesting a less intrusive route of administration
if both routes are prescribed by the provider (PO <
IV).
08/07/25 13:05
Code Status As Directed
Resuscitation Status: Full Code
08/07/25 13:07
CEA Stat
Abnormal Lab Results
08/07/25
07:43
RBC 3.58 L 10^6/uL
(4.20-5.40)
Hgb 10.4 L g/dL
(12.0-16.0)
Hct 32.6 L %
(37.0-47.0)
MCHC 31.9 L g/dL
(33.0-37.0)
Absolute Lymphs (auto) 0.6 L 10^3/uL
(1.2-3.4)
Neutrophils % 80.4 H %
(42.2-75.2)
Lymphocytes % 10.0 L %
(20.5-51.1)
Glucose 129 H mg/dl
(70-99)
Alkaline Phosphatase 155 H U/L
(38-126)
Lipase 3041 H* U/L
(23-300)
08/07/25 07:43
08/07/25 07:43
Vital Signs
Initial and Last Documented VS:
Initial Vital Signs
Pulse Resp Pulse Ox
70 15 99
08/07/25 07:41 08/07/25 07:41 08/07/25 07:41
Last Documented Vital Signs
Temp Pulse Resp BP Pulse Ox
37.0 C 76 20 135/74 97
08/07/25 09:00 08/07/25 10:30 08/07/25 10:27 08/07/25 10:27 08/07/25 10:30
<Alf Mendoza, - Last Filed: 08/07/25 10:41>
Orders/Labs/Results
Orders:
Orders
08/07/25 07:43
Complete Blood Count/With Diff Urgent
Comprehensive Metabolic Panel Urgent
Lipase Urgent
Magnesium Urgent
08/07/25 07:56
Iohexol [Omnipaque] See Protocol PO NOW STA
08/07/25 07:57
CT Abd/pel W Iv And Oral Contr Urgent
Comment:
Reason For Exam: left upper quad pain, flank pain, weight loss
Morphine Sulfate 2 mg IV NOW STA
Ondansetron Injectable [Zofran] 4 mg IV NOW STA
08/07/25 07:58
0.9% Sodium Chloride 500 ml [Nss] 500 ml IV BOLUS
08/07/25 10:09
Urinalysis Reflex To Culture Urgent
Date Specimen was Collected: 08/07/25
Time Specimen was Collected: 07:41
08/07/25 13:04
Admit/Transfer Patient As Directed
Co-Sign Provider:
Level of Care: Inpatient admission
Assign to:: Medical/Surgical
Physician / Group: gray deluna
Diagnosis: acute pancreatitis
Reason for Hospitalization: acute pancreatitis
Expected length of stay greater than two midnights?: Yes
ELOS- Estimated Length of Stay in days: 3
I certify the patient meets the requirements for IP care: Yes
PRN Pain Medication Management As Directed
May give lesser potent ordered pain med per pt: Yes
preference::
Protocol:: Medication orders for pain may be administered in a
manner that supports deferring to patient preference
when the pt is:
- Requesting an ordered lesser potent pain medication.
Least to most potent pain medications are defined
as: acetaminophen < NSAID < tramadol < opioids
(morphine, oxycodone, hydromorphone).
- Requesting a lesser dose of the same medication IF
ORDERED.
- Requesting a less intrusive route of administration
if both routes are prescribed by the provider (PO <
IV).
08/07/25 13:05
Code Status As Directed
Resuscitation Status: Full Code
08/07/25 13:07
CEA Stat
Abnormal Lab Results
08/07/25
07:43
RBC 3.58 L 10^6/uL
(4.20-5.40)
Hgb 10.4 L g/dL
(12.0-16.0)
Hct 32.6 L %
(37.0-47.0)
MCHC 31.9 L g/dL
(33.0-37.0)
Absolute Lymphs (auto) 0.6 L 10^3/uL
(1.2-3.4)
Neutrophils % 80.4 H %
(42.2-75.2)
Lymphocytes % 10.0 L %
(20.5-51.1)
Glucose 129 H mg/dl
(70-99)
Alkaline Phosphatase 155 H U/L
(38-126)
Lipase 3041 H* U/L
(23-300)
08/07/25 07:43
08/07/25 07:43
Vital Signs
Initial and Last Documented VS:
Initial Vital Signs
Pulse Resp Pulse Ox
70 15 99
08/07/25 07:41 08/07/25 07:41 08/07/25 07:41
Last Documented Vital Signs
Temp Pulse Resp BP Pulse Ox
37.0 C 76 20 135/74 97
08/07/25 09:00 08/07/25 10:30 08/07/25 10:27 08/07/25 10:27 08/07/25 10:30
<Hannah Montana PA-C - Last Filed: 08/07/25 14:06>
MDM/Problems Addressed
MDM/Problems Addressed:
Note:
CHIEF COMPLAINT(S)
Abdominal pain and decreased appetite.
HISTORY OF PRESENT ILLNESS
The patient 80 y/o F with a past medical history significant for colon cancer and a triple coronary artery bypass graft surgery. He presented with complaints of abdominal pain that have been persistent since June 25. Initially, the pain was
described as a squeezing sensation affecting the whole body, which led to an evaluation at the hospital where cardiac issues were ruled out but gallstones were identified. Since then, the abdominal pain has been persistent and is localized to the
right side, exacerbating at night and interfering with sleep.
The patients appetite has significantly decreased over the past three weeks, and there is an associated unintended weight loss of approximately 4 pounds noted by the family. Despite taking acetaminophen for pain relief, he continues to experience
pain, especially after eating, which occasionally makes him feel like vomiting although he does not actually vomit. He denies any diarrhea or actual vomiting but reports feeling drained of energy. No fever is reported, although warmth around the
eyes is occasionally felt. There is mention that the pain could worsen with deep breathing, but he does not experience pain during urination.
PAST MEDICAL AND SURIGICAL HISTORY
1. Colon cancer with previous surgical resection.
2. Triple coronary artery bypass surgery.
SOCIAL DETERMINANTS AFFECTING HEALTH
The patient has reported loss of weight potentially affecting his nutritional status due to decreased appetite related to ongoing abdominal pain.
REVIEW OF SYSTEMS
- Gastrointestinal: Abdominal pain, reduced appetite, and weight loss.
- General: Feeling of low energy and fatigue.
- Neurological: More warmth around the eyes but no actual fever reported.
PHYSICAL EXAM
- Gastrointestinal: Tenderness elicited on the right side during palpation.
- Nursing notes reviewed and vital signs reviewed.
PLAN
1. Blood work to identify any underlying issues contributing to the pain.
2. Provide intravenous pain medication, considering previous tolerance to morphine from a past hospital visit for pain management.
3. Further evaluate the identified gallstones to determine their relation to current symptoms.
4. Consider consulting gastrointestinal specialists for ongoing pain management and assessment of potential gallstone treatment.
DIFFERENTIAL DIAGNOSIS
The Differential Diagnosis includes, in no particular order and is not limited to:
1. Gallstone disease.
2. Peptic ulcer disease.
3. Gastroesophageal reflux disease.
4. Pancreatitis.
5. Small bowel obstruction.
6. Hepatic abscess or liver pathology.
7. Biliary colic.
8. Acute cholecystitis.
9. Intestinal ischemia.
10. Colon cancer recurrence.
80 y/o F with h/o remote colon ca
here with epigastric pain for about 1 mo
had gallstone seen on previous imaging
has had some weight loss, inability to eat, anorexia
yesterday saw pcp who recommended nausea med
pt is here becuase pain perists, LUQ
no vomitnig
no jaundice
tender epigastric region
alk phos mildly elevated
ct unfortuantely shows likely metastatic disease wide spread, SHI, liver, lung, pancreas
pt was informed of this with lang line
son at bedside
she expresses desire not to pursue treatment
will admit for onc consult, IVF and pain meds for pancreatitis
<Hannah Montana PA-C - Last Filed: 08/07/25 14:06>
*Pulse Oximetry
SaO2: 97
Oxygen Mode of Delivery: Room air
Patient hypoxic: no (97)
*Critical Care Note
Total Time (30-74mins, 75-104mins- exclusive of procedures): Not Applicable
ED Attending Note
<Hannah Montana PA-C - Last Filed: 08/07/25 14:06>
-
Portions of this chart may have been created with voice recognition software.� Occasional wrong word or��sound alike� substitutions may have occurred due to the inherent limitations of voice recognition software.
<Alf Mendoza DO - Last Filed: 08/07/25 10:41>
ED Attending Note
Patient seen and examined by attending physician: Yes
I performed the substantive portion of visit, reviewed & personally made and approve the management plan that is documented in note by myself or LEANNA.: Yes
ED Attending Note:
Seen with PA examined independently agree with assessment and plan 80-year-old female upper abdominal pain lipase is up nondrinker non-smoker no jaundice will require admission we will get a CAT scan to define anatomy
Discharge Plan
Departure
Patient Disposition: Admit
Date of Disposition: 08/07/25
Time of Disposition: 12:36
Admit to: Med/Surg
Presentation/result/management discussed w/ accepting MD/DO: Hospitalist
Condition: Fair
Covid-19: Not Applicable
Discharge Problem:
Pancreatitis
Interventions
Interventions:
*Risk Screen - Suicide Last Done: 08/07/25 07:42
*General Assessment Last Done: 08/07/25 07:42
*Neglect/Abuse Screening Last Done: 08/07/25 07:42
*ED- Fall Risk Assessment Last Done: 08/07/25 07:42
*ED COVID-19 Vaccine History Last Done: 08/07/25 07:42
*ED Influenza Vaccine History Last Done: 08/07/25 07:42
NP-Kgelfb-Czmywyeomd Assessment Last Done: 08/07/25 07:42
[2025-08-07 10:25] LABS: Urine Character Clear (Clear)
--- NOTE | 2025-08-07 10:26 | EDRN ---
the pt notified this RN that she needed to use the bathroom using the spouting installer, the pt was able to provide a urine sample and it was sent to the lab, the pt is resting in stretcher in the lowest position, side rails up x2, call cooper within reach,
HOB elevated, no s/s of distress, no c/o pain currently, will continue to monitor the pt closely
--- NOTE | 2025-08-07 12:37 | HPS.HSE ---
Family Physician
-
Family Physician: NO INTERVIEW UNKNOWN
Chief Complaint
-
abdominal pain
History of Present Illness
80 y/o F with a past medical history significant for colon cancer and a triple coronary artery bypass graft surgery, HLOD< HTN, presented to us with abdominal for past few weeks. patient complaining of right upper quadrant pain which is sometimes
worse with eating. the pain is worse at night and not able to sleep during night.The patients appetite has significantly decreased over the past three weeks, and there is an associated unintended weight loss of approximately 4 pounds noted by the
family. Despite taking acetaminophen for pain relief, he continues to experience pain, especially after eating. denied vomiting or diarrhea but complained of nausea. denied dysuria or hematuria.
CT concerning of pancreatitis, metastatic disease
Medical History
Past Medical History
Past Medical History: Reports Other
Additional Past Medical History:
Coronary artery disease, hypertension, colon cancer, hyperlipidemia, coronary artery disease, NSTEMI,
Past Surgical History: Reports Other
Additional Past Surgical History:
Coronary artery bypass graft, stented coronary artery, colectomy
Social History
Tobacco: Non-smoker
Alcohol: None
Drug: None
Living: With Family
Family History
Family History: Not pertinent
Allergies / Home Medications
Allergies reflects when Allergies were last updated in [facility].
Home Medications with original date entered in [facility]
Allergy/Medication List:
Allergies
Allergy/AdvReac Type Severity Reaction Status Date / Time
No Known Allergies Allergy Verified 06/25/25 10:15
Home Medications
atorvastatin 40 mg tablet (Lipitor) 40 mg PO QPM High Cholesterol 10/15/23
aspirin 81 mg chewable tablet 81 mg PO DAILY Blood Clot Prevention/Tx 11/25/24
ticagrelor 90 mg tablet (Brilinta) 90 mg PO BID Blood clot prevention/tx #180 tabs 11/25/24
metoprolol succinate 50 mg tablet,extended release 24 hr (Toprol XL) 50 mg PO DAILY Blood Pressure 06/25/25
telmisartan 40 mg-hydrochlorothiazide 12.5 mg tablet 1 tab PO DAILY Blood Pressure 06/25/25
baclofen 10 mg tablet 10 mg PO TIDPRN PRN SPASMS 08/07/25
tamsulosin 0.4 mg capsule (Flomax) 0.4 mg PO BID Urinary Issue 08/07/25
ursodiol 300 mg capsule 300 mg PO BID 08/07/25
Review of Systems
-
Constitutional: Reports No Symptoms
EENT: Reports No Symptoms
Respiratory: Reports No Symptoms
Cardiac: Reports No Symptoms
Abdomen/GI: Reports No Symptoms and Abdominal Pain
: Reports No Symptoms
Musculoskeletal: Reports No Symptoms
Skin: Reports No Symptoms
Neurological: Reports No Symptoms
Endocrine: Reports No Symptoms
Hematologic/Lymphatic: Reports No Symptoms
Psych: Reports No Symptoms
Physical Exam
Vital Signs
Vital Signs
Temp Pulse Resp BP Pulse Ox
98.6 F 72 20 135/74 98
08/07/25 09:00 08/07/25 10:27 08/07/25 10:27 08/07/25 10:27 08/07/25 10:27
Physical Exam
General: Well Developed, Well Nourished and No Apparent Distress
HEENT: NormoCephalic, Moist mucous membranes and Atraumatic
Respiratory: Clear
Cardiac: S1/S2 and Regular Rhythm; No Murmur or Rub
GI: Soft, Non Tender, Non Distended and Normal Bowel Sounds; No Organomegaly
Rectal: Deferred by Provider
Musculoskeletal: No Clubbing, No Cyanosis and No Edema
Skin: No Rash
Neuro: AO x 3 and Nonfocal/grossly intact
Psych: Calm
Laboratory Results
-
08/07/25 07:43
08/07/25 07:43
Laboratory Results
Total Bilirubin 0.8 mg/dl (0.2-1.3) 08/07/25 07:43
AST 33 U/L (14-36) 08/07/25 07:43
ALT 23 U/L (0-35) 08/07/25 07:43
Alkaline Phosphatase 155 U/L (38-126) H 08/07/25 07:43
Lipase 3041 U/L (23-300) H* 08/07/25 07:43
Data Reviewed
-
CT Scan: Report Reviewed by me
Lab Data: Labs Reviewed by me
Impression/Plan
-
# Left upper quadrant pain, weight loss concerning for acute pancreatitis
- Lipase 3041
-LR continued
-Dilaudid prn for pain
-keep patient NPO
-trend Lipase
- CT abdomen pelvis with impression of Evidence for pulmonary metastatic disease.Low-density lesion within the medial segment the left lobe liver, likely representing hepatic metastatic disease.Lymphadenopathy is present within the abdomen, in the
region of the gastrohepatic ligament, in the periportal region, within the mesentery, and in the periaortic and interaortocaval regions. Findings likely represent metastatic lymphadenopathy from colon cancer, given the clinical history.Subtle low
density region within the pancreatic body, most likely a metastatic lesion. Primary pancreatic neoplasm would be a differential consideration, but felt to be less likely.There is edema surrounding the pancreas, suggesting pancreatitis in this
patient with elevated lipase value.There is narrowing of the main portal vein and the common bile duct in the periportal region, which is likely from lymphadenopathy. Nonocclusive thrombus within the posterior aspect of the main portal
vein.Distended gallbladder Small amount of fluid in the left upper quadrant adjacent to the spleen. Small amount of fluid in the right lower abdomen adjacent to the lateral and inferior aspect of the right lobe liver.
# History of colon cancer with metastatic disease
-GI consulted
-oncology consulted
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
# Anemia of chronic disease
- Hemoglobin stable at 10.4, no active bleeding
- Continue to monitor
#coronary artery disease status post CABG:
- Continue beta-benoit, statin, aspirin
-hold Brilinta
#Hypertension:
- Continue metoprolol succinate 50 daily
- Monitor vital signs closely
#DVT prophylaxis
heparin sq
#CODe status
-full code
--- NOTE | 2025-08-07 12:41 | W.PN.UPDATE ---
Update Note
Progress Note Update
I could not get any information from the patient is Spanish speaker
Information gathered by chart review and speaking with the ER staff.
This note serves as an addendum to the H&P by transportation assistant LEANNA�
This note serves as an addendum to the H&P by transportation assistant LEANNA�
Eri EDITH�
HPI
80F
Spanish speaker, accompanied by
HX Colon CA pw subacute LUQ pain for 4 weeks
Associated significant wt loss
PHX: DLP, HTN,
Per ER:
lipase 3000
[address]itis
CT findings c/w metastatic disease, pulm, liver, Lymph
Relevant VS
Vital Signs
Temp Pulse Resp BP Pulse Ox
98.6 F 72 20 135/74 98
08/07/25 09:00 08/07/25 10:27 08/07/25 10:27 08/07/25 10:27 08/07/25 10:27
PE
Non South African speaker . Just Koran speaker
Gen: NAD, not toxic, pale complexion and Underweight BMI @ 17
HEENT:anicteric
Neck: supple
Lungs: CTA
Cor:RRR no mm.
Abdomen:�soft , mildly tender RHC and
BAND SAW FILER: AAO3
Psych: anxious but appropriate
Relevant Data
06/25/25 08/07/25
10:43 07:43
WBC 6.0
Hgb 11.6 L 10.4 L
MCV 91.1
Plt Count 197 215
08/07/25
07:43
Potassium 3.5
Chloride 103
Creatinine 0.9
eGFR > 60.00
AST 33
ALT 23
Alkaline Phosphatase 155 H
Lipase 3041 H*
CT Abd/pel W Iv And Oral Contr
- Evidence for pulmonary metastatic disease.
- Low-density lesion within the medial segment the left lobe liver, likely representing hepatic metastatic disease.
- Lymphadenopathy is present within the abdomen, in the region of the gastrohepatic ligament, in the periportal region, within the mesentery, and in the periaortic and interaortocaval regions.
Findings likely represent metastatic lymphadenopathy from colon cancer, given the clinical history.
- Subtle low density region within the pancreatic body, most likely a metastatic lesion.
Primary pancreatic neoplasm would be a differential consideration, but felt to be less likely.
- There is edema surrounding the pancreas, suggesting pancreatitis in this patient with elevated lipase value.
- There is narrowing of the main portal vein and the common bile duct in the periportal region, which is likely from lymphadenopathy.
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
- Distended gallbladder.
- Small amount of fluid in the left upper quadrant adjacent to the spleen. Small amount of fluid in the right lower abdomen adjacent to the lateral and inferior aspect of the right lobe liver.
Last hospitalist admission: 06/25/25 - 06/25/25
Principal Discharge diagnosis :
1. Chest pain, likely musculoskeletal well cardiac was ruled out by negative exam and EKG and cleared by cardiology
2. Musculoskeletal back pain.
3. Coronary artery disease status post stenting in
4. Hypertension
5. Dyslipidemia
6. Colon cancer
7. Pulmonary nodule, follow-up with the primary care and may need regular CAT scan to follow-up
8. Gallstone: May need a referral to surgery as an outpatient
ASSESSMENT & PLAN
Spanish speaker
Acute pancreatitis - suspect partial occlusion at the common bile duct in the periportal region
- lipase 3000. Nl Transaminase
- 4 weeks sub acute LUQ pain
- weight loss
- HX colon CA
- NPO and and LR IVF
- PRN Narcotic Analgesia
- PRN antiemetics
- GI consult - defer further imaging MRI/MRCP to GI evacuation
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
- To consider Heparin gtt
- Oncology consult
Subtle low density region within the pancreatic body, most likely a metastatic lesion: Primary pancreatic neoplasm would be a differential consideration, but felt to be less likely.
CT findings c/w metastatic disease, Pul, liver, Lymph suspect Metastatic colon CA dz > Primary pnacreatic CA
Assailed Wt loss
- Check CA 19-9
- Hold Brilinta in case invasive biopsy
- Partially [place] African proficient Son Chandu ([phone]) is at the bed side wit patient when Team ( ER AP, hospitalist and [facility] AP) inform about the CT findings, probably Dx and further consultation via naturopathic oncology provider
- Oncology consult
Known HX:
CAD s/p stenting : Holding Brilinta for pending procedure
DLP on Atorvastatin: to be cont
Benign HTN: on DIG[employer] MARKETING OFFICER Metoprolol XL, c/w Telmisartan, Hold HCTZ portion
DVT Px: SQH for now till further decision for Heparin gtt
Full code
IP MS
--- NOTE | 2025-08-07 13:25 | EDRN ---
Dr. Salamanca currently at the pts bedside
--- NOTE | 2025-08-07 13:48 | W.PN.UPDATE ---
Update Note
Progress Note Update
Case hospitalist gregg Son Chandu again after team informed him and patient about the most likely Dxs and likely advanced mets dz;
Juan had loss his from Cancer recently
Per Chandu , Mrs Aguilar mentioned to him that when anything like advanced cancer dz , she just want to be pain free and comfortable. Somewhat hospice care.
Patient lives with Son ( septic pump truck driver at [employer] ) with grandson , high school.
Somewhat, Son and patient is leaning towards hospice care
Await GI and Onco input
--- NOTE | 2025-08-07 14:10 | CON.GI ---
Addendum entered and electronically signed by Felton Wynne MD 08/07/25 16:17:
I saw and evaluated the patient. I reviewed the resident�s note and agree with findings and plan as documented in the resident�s note.
80yo female presents with abd pain. CT shows extensive metastatic disease- pulmonary, liver, periportal periaortic L/A, pancreatic body, and also edema around pancreas. Lipase 3041. 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 She was dx'd
with CRC last October 2023 and had resection- T3, N1b with LN positive. There was concern for cardiac lesion and rec cardiac MRI and PET scan after d/c with Onc but pt did not wish chemo or aggressive rx at age 79. She similarly does not wish
aggressive rx per son who is narrow gauge operator
REC:
OK for clears and low fat diet for breakfast tomorrow if tolerated.
Pain control
LR at 150cc/hr
Onc consult to discuss treatment options
Sounds like hospice most appropriate. Son is familiar as he unfortunately just lost his to gastric cancer
Original Note:
Medical History
Chief Complaint / HPI
History of Present Illness:
80yoF PMH CAD s/p CABG and colon cancer s/p resection 10/2023 presenting with acute worsening of 1 mo of abdominal pain.
Pt reports over a month of pain. She presented to ED in June with chest and back pain they diagnosed as musculoskeletal pain where they found incidental pulmonary nodules. Pt reports improvement of her back pain but she began having worsening
abdominal pain. Denies nausea, emesis, diarrhea, constipation, blood in stool. Reports reduced appetite. She explained that the pain is always so bad that she does not know if it is worse pre or postprandial but she has eating significantly less due
to the severity, reporting loss of about 5lbs over the last month.
Pt had colon resection for T3N1b colon adenocarcinoma in 10/2023. She was advised to get a PET scan and outpt cardiac MRI for concern of pericardial metastases. She did not follow up outpt and did not receive any further treatment after surgery.
Past Medical History
Past Medical History: CAD (s/p triple bypass) and Cancer (colon s/p resection)
Past Surgical History: Bowel Resection and Cardiac
Allergies / Home Medications
Allergy/AdvReac Type Severity Reaction Status Date / Time
No Known Allergies Allergy Verified 06/25/25 10:15
�Medication �Instructions �Recorded
atorvastatin 40 mg tablet (Lipitor) 40 mg PO QPM High Cholesterol 10/15/23
aspirin 81 mg chewable tablet 81 mg PO DAILY Blood Clot 11/25/24
Prevention/Tx
ticagrelor 90 mg tablet (Brilinta) 90 mg PO BID Blood clot 11/25/24
prevention/tx #180 tabs
metoprolol succinate 50 mg 50 mg PO DAILY Blood Pressure 06/25/25
tablet,extended release 24 hr
(Toprol XL)
telmisartan 40 1 tab PO DAILY Blood Pressure 06/25/25
mg-hydrochlorothiazide 12.5 mg
tablet
baclofen 10 mg tablet 10 mg PO TIDPRN PRN SPASMS 08/07/25
tamsulosin 0.4 mg capsule (Flomax) 0.4 mg PO BID Urinary Issue 08/07/25
ursodiol 300 mg capsule 300 mg PO BID 08/07/25
Review of Systems
-
History Source: Patient
Constitutional: Reports Weight Loss and Fatigue
Cardiac: Reports Chest Pain
Abdomen/GI: Reports Abdominal Pain, Nausea (only with taking medicine on an empty stomach) and Anorexia; Denies Vomiting, Diarrhea or Constipated
Neurological: Reports Weakness; Denies Dizzy or Headache
Vital Signs
Temp Pulse Resp BP Pulse Ox
98.6 F 76 20 135/74 97
08/07/25 09:00 08/07/25 10:30 08/07/25 10:27 08/07/25 10:27 08/07/25 10:30
Physical Exam
Exam
General: Comfortable and Poor Appetite
HEENT: Normocephalic, Anicteric, Moist Mucous Membranes and Atraumatic
Respiratory: Clear and Non Labored Respirations
Cardiac: S1/S2 and Regular Rhythm; Negative Peripheral Edema
GI: Soft, Non Tender (pt pointed to tenderness to deep palpation in LLQ) and Non Distended
Musculoskeletal: No Clubbing, No Cyanosis and No Edema
Skin: Warm and Dry
Neuro: AO x 3 and Nonfocal/Grossly Intact
Psych: Calm
Results
WBC 6.0 10^3/uL (4.8-10.8) 08/07/25 07:43
Hgb 10.4 g/dL (12.0-16.0) L 08/07/25 07:43
Hct 32.6 % (37.0-47.0) L 08/07/25 07:43
MCV 91.1 fL (81.0-99.0) 08/07/25 07:43
Plt Count 215 10^3/uL (130-400) 08/07/25 07:43
Absolute Neuts (auto) 4.9 10^3/uL (1.4-6.5) 08/07/25 07:43
Sodium 135 mmol/L (135-145) 08/07/25 07:43
Potassium 3.5 mmol/L (3.5-5.1) 08/07/25 07:43
Chloride 103 mmol/L (98-107) 08/07/25 07:43
Carbon Dioxide 27 mmol/L (22-30) 08/07/25 07:43
BUN 17 mg/dl (7-17) 08/07/25 07:43
Creatinine 0.9 mg/dL (0.6-1.0) 08/07/25 07:43
Calcium 9.1 mg/dl (8.4-10.2) 08/07/25 07:43
Total Bilirubin 0.8 mg/dl (0.2-1.3) 08/07/25 07:43
AST 33 U/L (14-36) 08/07/25 07:43
ALT 23 U/L (0-35) 08/07/25 07:43
Alkaline Phosphatase 155 U/L (38-126) H 08/07/25 07:43
Lipase 3041 U/L (23-300) H* 08/07/25 07:43
Diagnostic Image Results:
IMPRESSION: Evidence for pulmonary metastatic disease.
Low-density lesion within the medial segment the left lobe liver, likely representing hepatic metastatic disease.
Lymphadenopathy is present within the abdomen, in the region of the gastrohepatic ligament, in the periportal region, within the mesentery, and in the periaortic and interaortocaval regions. Findings likely represent metastatic lymphadenopathy from
colon cancer, given the clinical history.
Subtle low density region within the pancreatic body, most likely a metastatic lesion. Primary pancreatic neoplasm would be a differential consideration, but felt to be less likely.
There is edema surrounding the pancreas, suggesting pancreatitis in this patient with elevated lipase value.
There is narrowing of the main portal vein and the common bile duct in the periportal region, which is likely from lymphadenopathy. 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
Distended gallbladder.
Small amount of fluid in the left upper quadrant adjacent to the spleen. Small amount of fluid in the right lower abdomen adjacent to the lateral and inferior aspect of the right lobe liver.
Prior GI Procedures:
EGD:
Colonoscopy:
Colon resection
FINDINGS:
1. No obvious metastatic disease.
2. Bulky tumor in the mid transverse colon.
PROCEDURE: Robotic extended right colectomy with isoperistaltic
intracorporeal anastomosis.
Assessment / Plan
-
80yoF PMH CAD s/p CABG, colon cx s/p resection 10/2023 presenting with acute worsening of 1mo chest and abdominal pain related to metastatic disease.
AFVSS. Hg stable. No nausea, vomiting, abdominal pain. Lipase 3041. LFTs WNL. Electrolytes WNL. CT demonstrates metastatic disease in the lungs, pancreas, liver, and abdominal lymph nodes with pancreatic edema suggestive of acute pancreatitis as
well as possible nonocclusive portal vein thrombus.
Pt is interested in feeling better and discussing options with oncology; however, she does not seem currently interested in chemotherapy or radiation. Poor appetite since pain started.
#acute pancreatitis
- IVF
- Advance diet as tolerated. Poor appetite for over a month, likely malnourished to start
- Pain regimen
#colon cancer
- metastases likely related to her history of colon cx
- Oncology following
- Current plan to address acute pancreatitis. Continue following to provide further palliative approaches if applicable
Data Reviewed
-
Radiology: Image Personally Visualized and interpreted
CT Scan: Image Personally Visualized and interpreted, Discussed with Patient and Discussed with Family
Old Records: Reviewed
-
-
Thank you for consultation and allowing me to participate in the patient's care. Please call the tracer bullet section supervisor GI physician during the after hours with any questions or concerns.
[2025-08-07 14:53] LABS: CEA 3.43 ng/ml
--- NOTE | 2025-08-07 14:57 | EDRN ---
this RN called the receiving unit and notified them that paper report was going to be tubed up
[2025-08-07] MEDS: LR 1000 IV (15:55)
--- NOTE | 2025-08-07 17:00 | PTCARENOTE ---
Pt admitted to room 413-2. Pt ambulated into room with standby assistance. VSS. Son at bedside. Pt reporting 6/10 abd pain. IV fluids initiated per orders. Pt oriented to room and has call cooper within reach.
[2025-08-07] MEDS: LIPITOR 40 MG PO (18:20)
[2025-08-07] MEDS: TYLENOL 650 MG PO (18:20)
[2025-08-07] MEDS: FLOMAX 0.4 MG PO (20:39)
[2025-08-07] MEDS: ACTIGALL 300 MG PO (20:39)
[2025-08-07] MEDS: HEPARIN 5000 UNITS SC (21:05)
--- NOTE | 2025-08-07 22:28 | W.PN.UPDATE ---
Update Note
Progress Note Update
RN reported patient wants to be DNR. Patient seen, AAO, pleasant, Nepali speaking, and son Chandu is on the phone. Code status discussed. patient and son verbalized understanding. Code Status DNR.
--- NOTE | 2025-08-07 22:41 | PTCARENOTE ---
Speak to pt via traffic and transport planner to ask about her pain and if she has any questions or concerns. When asked about the code status, pt said she wants to be DNR. Code status confirmed with traffic and transport planner. PROTECTION MGR made aware about pt's wishes. PROTECTION MGR confirms the
DNR status with the pt and son. Will keep pt's pain under control. Ask the pt to call whenever she needs pain medication.
[2025-08-08] MEDS: LR 1000 IV ×2 (01:05→09:11)
[2025-08-08] MEDS: DILAUDID 0.5 MG IV ×4 (03:44→23:14)
[2025-08-08 07:00] VITALS: BP 127/68
[2025-08-08 07:15] LABS: Hematocrit 29.6 % (37.0-47.0); Hemoglobin 9.6 g/dL (12.0-16.0); Mean Corp Hgb Conc. 32.4 g/dL (33.0-37.0); Mean Corpuscular Volume 89.7 fL (81.0-99.0); Platelet Count 203 10^3/uL (130-400); Red Cell Dist. Width 14.1 % (11.5-14.5)
--- NOTE | 2025-08-08 07:41 | W.PN.HOSP.TC ---
Today's Communication/Plan
-
Therapeutic subq Lovenox
Home with home hospice to be arranged
Assessment / Plan
Assessment / Plan
DAYRON TEVINY SIGN-OUT
1.413 Soon KNOWN
80F Non Chinese English speaker, Son Juan Chinese speaker, Prior HX Ca Colon s/p resection, due to age, chemo was not given per son, but partially proficient a/w abdominal pain, wt loss, a/w acute pancreatitis, POS CT for diffuse metastatic dz to
liver, lungs, LAD, likely Nonocclusive thrombus within the posterior aspect of the main portal vein, suspect partial occlusion at the common bile duct in the periportal region. NPO. LR IVF, PRN Analgesia. Holding heparin gtt for now in case
invasive w/u. HX Stented CAD on Brilinta which is held upon admission. Son and Patient tis slanting towards palliative care vs hospice care. IP MS. Full code for now till Oncology and GI consult.
Physical Exam
General: Well Developed, Well Nourished and No Apparent Distress
HEENT: NormoCephalic, Moist mucous membranes and Atraumatic
Respiratory: Clear
Cardiac: S1/S2 and Regular Rhythm; No Murmur or Rub
GI: Soft, Non Tender, Non Distended and Normal Bowel Sounds; No Organomegaly
Rectal: Deferred by Provider
Musculoskeletal: No Clubbing, No Cyanosis and No Edema
Skin: No Rash
Neuro: AO x 3 and Nonfocal/grossly intact
Psych: Calm
Assessment/Plan
80 y/o female, English Speaker, with a past medical history significant for colon cancer and a triple coronary artery bypass graft surgery, HLOD< HTN, presented to us with abdominal for past few weeks. patient complaining of right upper quadrant pain
which is sometimes worse with eating. the pain is worse at night and not able to sleep during night.The patients appetite has significantly decreased over the past three weeks, and there is an associated unintended weight loss of approximately 4
pounds noted by the family. Despite taking acetaminophen for pain relief, he continues to experience pain, especially after eating. denied vomiting or diarrhea but complained of nausea. denied dysuria or hematuria.
# Left upper quadrant pain, weight loss concerning for acute pancreatitis
-Lipase 3041
-LR continued
-Dilaudid prn for pain
-Can advance diet to low fat
#History of invasive Colon adenocarcinoma, s/p right colectomy 10/2023
-GI consulted
-oncology consulted
-Per my [place] Text communication on 08/08/[address] Clifton, patient's son Chandu is interested in having hospice involved sooner than later and would like to take her home
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
-Start Lovenox subq
# Anemia of chronic disease
- Hemoglobin stable
- Continue to monitor
#CAD s/p IWMI and 3.0 x 38 mm [place] MILLI to the mid and distal OM 2 09/30/2024 and s/p robotic MIDCAB GUILLEN-LAD 11/24/2024
#Recent ER visit for chest pain 06/25/2025
#Undetectable troponin levels and atypical chest pain that was nothing like her previous [place] pain
-Continue beta-benoit, statin, aspirin
-Per cardiology, can stop Brilinta, and can start anticoagulation in lieu of Brilinta
#Hypertension
- Continue metoprolol succinate 50 daily
- Monitor vital signs closely
#Hyperlipidemia
CT Imaging Findings This Hospitalization (as per radiologist's report)
Pulmonary metastatic disease.
Low-density lesion within the medial segment the left lobe liver, likely representing hepatic metastatic disease.
Lymphadenopathy is present within the abdomen, in the region of the gastrohepatic ligament, in the periportal region, within the mesentery, and in the periaortic and interaortocaval regions. Findings likely represent metastatic lymphadenopathy from
colon cancer, given the clinical history.
Subtle low density region within the pancreatic body, most likely a metastatic lesion. Primary pancreatic neoplasm would be a differential consideration, but felt to be less likely.
There is edema surrounding the pancreas, suggesting pancreatitis in this patient with elevated lipase value.
There is narrowing of the main portal vein and the common bile duct in the periportal region, which is likely from lymphadenopathy. 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
Distended gallbladder.
Small amount of fluid in the left upper quadrant adjacent to the spleen. Small amount of fluid in the right lower abdomen adjacent to the lateral and inferior aspect of the right lobe liver.
DVT Prophylaxis: Subq therapeutic Lovenox
Code Status: Full Code
Anticipated Discharge: 24 - 48 hours
Subjective/Interval History
-
Date of Service: August 08, 2025
Patient was seen and examined. She reported some left-sided abdominal pain, denied any other new significant symptoms or complaints.
Objective Data
-
Labs:
Laboratory Results
08/08/25
06:46
WBC 7.0
Hgb 9.6 L
Hct 29.6 L
Plt Count 203
Sodium Pending
Potassium Pending
Chloride Pending
Carbon Dioxide Pending
BUN Pending
Creatinine Pending
Glucose Pending
Calcium Pending
Vital Signs:
Vital Signs
Temp Pulse Resp BP Pulse Ox
98.4 F 94 16 121/64 97
08/07/25 23:17 08/07/25 23:17 08/07/25 23:17 08/07/25 23:17 08/07/25 23:17
I&O
08/07/25 08/08/25 08/09/25
06:59 06:59 06:59
Intake Total 1500 / 1500
Balance 1500 / 1500
[2025-08-08 07:46] LABS: Blood Urea Nitrogen 12 mg/dl (7-17); Calcium 8.4 mg/dl (8.4-10.2); Carbon Dioxide 26 mmol/L (22-30); Chloride 107 mmol/L (98-107); Estimated Creatinine Clearance 37 ml/min; Glucose 88 mg/dl (70-99); Lipase 1934 U/L (23-300); Potassium 3.7 mmol/L (3.5-5.1); Sodium 139 mmol/L (135-145); eGFR > 60.00
[2025-08-08] MEDS: HEPARIN 5000 UNITS SC (09:08)
[2025-08-08] MEDS: ACTIGALL 300 MG PO ×2 (09:08→20:31)
[2025-08-08] MEDS: LOW STRENGTH ASPIRIN 81 MG PO (09:08)
[2025-08-08] MEDS: FLOMAX 0.4 MG PO ×2 (09:08→20:31)
[2025-08-08] MEDS: TOPROL XL 50 MG PO (09:09)
--- NOTE | 2025-08-08 09:40 | CON.CAR ---
Addendum entered and electronically signed by Shan Dejesus MD 08/08/25 10:59:
I saw and examined the patient.
The SANIPRACTIC PHYSICIAN or PA's note was reviewed and I agree with the note.
Comment: General: Well developed, well nourished in NAD.
Neck: Supple, no JVD, HJR, carotids +2 B/L, no bruits bilaterally.
Heart: Non displaced PMI, RRR, no murmurs, No S3, S4, no rubs.
Lungs: Clear to auscultation bilaterally, no wheeze, rhonchi, rubs bilaterally,
normal expiratory phase.
Abdomen: Normal bowel sounds, soft, non-tender, non-distended.
Extremities: No clubbing, cyanosis or edema bilaterally.
Neuro: Grossly nonfocal, awake, alert and oriented x3.
Soon has a history of obtuse marginal 2 stent September 2024, robotic MIDCAB with GUILLEN to LAD in November 2024, invasive colon adenocarcinoma with CT suggestive of metastatic disease and possible portal vein thrombosis, hyperlipidemia. She presents
with abdominal pain and pancreatitis. Cardiology is consulted regarding anticoagulation management.
Okay for oral anticoagulation from cardiology viewpoint. Will discontinue Brilinta as it has been almost 11 months since her stent. Continue baby aspirin.
Otherwise stable from cardiology viewpoint. Will sign off, call with questions.
Original Note:
Medical History
-
History of Present Illness:
Patient came to the ER yesterday with recurrent abdominal and RUQ pain and CT of the abdomen and pelvis was concerning for metastatic disease prompting admission and cardiology is now consulted to comment on DAPT with possible portal vein
thrombosis. We last saw the patient during ER visit 06/25/2025 when she had complaints of upper abdominal pain and atypical chest pain going on for weeks and serially undetectable troponin levels. I saw the patient at that time and when I utilized
language line sports management professor services and informed patient that the plan was admission for workup of secondary causes of atypical chest pain due to the undetectable troponin levels the patient requested discharge to home for outpatient workup. Patient
has a history of CAD with previous IWMI and mid to distal OM 2 PCI 09/30/2024 and she then returned for robotic MIDCAB with GUILLEN to LAD on 11/24/2024. Patient has continued on her usual doses of aspirin and Brilinta since 09/30/2024. Due to
recurrent abdominal pain with increased RUQ pain the patient came to the ER again yesterday and CT suggests metastatic disease with lesions now being seen in the pancreas, liver and chest, when patient had CT of the chest in June there was no
evidence of metastatic disease. Patient admitted and is waiting to talk to oncology to see what treatment options could be offered. CT of the chest also suggested a nonocclusive thrombus in the main portal vein prompting cardiology evaluation to
determine if DAPT can be transition to OAC. Patient denies any blood in her urine or stools, but complains of easy bruising. Patient denies any chest pain or SOB.
PMH:
Recent ER visit for chest pain 06/25/2025
Undetectable troponin levels and atypical chest pain that was nothing like her previous [place] pain
h/o invasive Colon adenocarcinoma, s/p right colectomy 10/2023
Acute pancreatitis
Possible nonocclusive portal vein thrombus based on CT 08/07/2025
CAD
s/p IWMI and 3.0 x 38 mm [place] MILLI to the mid and distal OM 2 09/30/2024
s/p robotic MIDCAB GUILLEN-LAD 11/24/2024
Hyperlipidemia
Language barrier, ESL
Past Medical History
Past Medical History: Other
Past Surgical History: Bowel Resection (Hemicolectomy) and Cardiac (OM1 stent 09/2024 then MIDCAB with GUILLEN to LAD 11/2024)
Social History
Tobacco: Non-Smoker
Alcohol: None
Drug: None
Living: With Family
Family History
Family History: CAD
Allergies / Home Medications
Allergy/AdvReac Type Severity Reaction Status Date / Time
No Known Allergies Allergy Verified 06/25/25 10:15
�Medication �Instructions �Recorded �Confirmed �Type
atorvastatin 40 mg tablet (Lipitor) 40 mg PO QPM High Cholesterol 10/15/23 08/07/25 History
aspirin 81 mg chewable tablet 81 mg PO DAILY Blood Clot 11/25/24 08/07/25 History
Prevention/Tx
ticagrelor 90 mg tablet (Brilinta) 90 mg PO BID Blood clot 11/25/24 08/07/25 Rx
prevention/tx #180 tabs
metoprolol succinate 50 mg 50 mg PO DAILY Blood Pressure 06/25/25 08/07/25 History
tablet,extended release 24 hr
(Toprol XL)
telmisartan 40 1 tab PO DAILY Blood Pressure 06/25/25 08/07/25 History
mg-hydrochlorothiazide 12.5 mg
tablet
baclofen 10 mg tablet 10 mg PO TIDPRN PRN SPASMS 08/07/25 08/07/25 History
tamsulosin 0.4 mg capsule (Flomax) 0.4 mg PO BID Urinary Issue 08/07/25 08/07/25 History
ursodiol 300 mg capsule 300 mg PO BID 08/07/25 08/07/25 History
Review of Systems
-
History Source: Patient
All other systems: Negative unless noted
Physical Exam
Vital Signs
Temp Pulse Resp BP Pulse Ox
98 F 98 12 127/68 92
08/08/25 07:00 08/08/25 09:09 08/08/25 07:00 08/08/25 09:09 08/08/25 07:00
GEN: NAD. AAOx3
HEENT: EOMI, MMM
LUNGS: RA. CTA B/L, no wheeze
CV: SR on tele. Reg, S1/S2, no murmur
ABD: soft, BS+, NT, ND
EXT: No clubbing, cyanosis, lesions or edema B/L
NEURO: Gross non-focal
SKIN: Warm, dry and pink. No rash
Lab Results
08/08/25 06:46
08/08/25 06:46
Impression / Plan
-
PCP: Esau Metzger DO
CDY: Esha Collins MD
Impression:
Admitted with recurrent abdominal pain and new finding of likely metastatic colorectal cancer 08/07/2025
Recent ER visit for chest pain 06/25/2025
Undetectable troponin levels and atypical chest pain that was nothing like her previous [place] pain
Likely metastatic colorectal cancer
h/o invasive Colon adenocarcinoma, s/p right colectomy 10/2023
Acute pancreatitis
Possible nonocclusive portal vein thrombus based on CT 08/07/2025
CAD
s/p IWMI and 3.0 x 38 mm [place] MILLI to the mid and distal OM 2 09/30/2024
s/p robotic MIDCAB GUILLEN-LAD 11/24/2024
Hyperlipidemia
Language barrier, ESL
Language line sports management professor services used during consultation 08/08/2025
Echo 10/01/2024 EF 60 to 65%, no regional wall motion abnormalities, mod MR.
Plan:
-Patient came to the ER yesterday with recurrent abdominal and RUQ pain and CT of the abdomen and pelvis was concerning for metastatic disease prompting admission and cardiology is now consulted to comment on DAPT with possible portal vein
thrombosis. We last saw the patient during ER visit 06/25/2025 when she had complaints of upper abdominal pain and atypical chest pain going on for weeks and serially undetectable troponin levels. I saw the patient at that time and when I utilized
language line sports management professor services and informed patient that the plan was admission for workup of secondary causes of atypical chest pain due to the undetectable troponin levels the patient requested discharge to home for outpatient workup. Patient
has a history of CAD with previous IWMI and mid to distal OM 2 PCI 09/30/2024 and she then returned for robotic MIDCAB with GUILLEN to LAD on 11/24/2024. Patient has continued on her usual doses of aspirin and Brilinta since 09/30/2024. Due to
recurrent abdominal pain with increased RUQ pain the patient came to the ER again yesterday and CT suggests metastatic disease with lesions now being seen in the pancreas, liver and chest, when patient had CT of the chest in June there was no
evidence of metastatic disease. Patient admitted and is waiting to talk to oncology to see what treatment options could be offered. CT of the chest also suggested a nonocclusive thrombus in the main portal vein prompting cardiology evaluation to
determine if DAPT can be transition to OAC. Patient denies any blood in her urine or stools, but complains of easy bruising. Patient denies any chest pain or SOB.
-ECG reviewed by me is sinus tachycardia without acute ST changes
-Patient with newly diagnosed metastatic cancer, likely related to her previous colon cancer from 2023. Her CT of the chest from 06/25/2025 was compared to her CT from yesterday and the pulmonary metastatic lesions are new. Patient is awaiting
oncologic evaluation, but GI is recommending consideration for hospice.
-There was evidence of a nonocclusive portal vein thrombus on CT 08/07/2025. From a cardiac standpoint last coronary MILLI placement was 09/30/2024 and patient can stop Brilinta, but recommend that she remain on aspirin.
-No cardiac contraindication to the initiation of OAC. Patient denies any blood in her stools or urine. Hgb was 11.6 on 06/25/2025 and is down to 9.6 on 08/08/2025, labs reviewed by me.
-Patient will continue with her usual dose of Toprol XL 50 mg daily
-Patient denies any chest pain or SOB and is able to complete 4 METS of activity as an outpatient without symptoms. Not clear if there will be any recommendation for surgery.
-In hindsight, suspect that recent ER visit for atypical chest pain was related to her current diagnosis
-I personally utilized the language line sports management professor services during my consultation with the patient on 08/08/2025.
--- NOTE | 2025-08-08 10:09 | CM ---
Initial assessment completed with son via phone; patient does not speak or understand [place]
ROBLES form discussed w/ son, Chandu; form dated/timed @ 1004
Family Physician verified: Dr Micah Metzger @ [address], [address], [place] [address]
Pharmacy verified: [facility] @ [address], [place]
Son reported that patient lives w/ him; multilevel home; 2 steps to enter; 11 steps to bedroom and bathroom; half bath on 1st floor
PLOF: was independent with personal care; son managed medication pill box; patient does not drive
No SNF or Home Health utilization history
Son is interested in Hospice Care
Son will will transport home
Discharge plan to be determined; Case Management will monitor and support when services/needs are ordered
--- NOTE | 2025-08-08 13:16 | W.PN.GI.CBS2 ---
Today's Communication / Plan
-
Tolerating diet
Lipase improved
Can d/c IVF
Pt DNR, desires comfort. Hospice likely best option for her
Awaiting Onc input
Will sign off. Please call back if needed
Assessment / Plan
-
Summary: 80yo female presents with abd pain. CT shows extensive metastatic disease- pulmonary, liver, periportal periaortic L/A, pancreatic body, and also edema around pancreas. Lipase 3041. 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 She was
dx'd with CRC last October 2023 and had resection- T3, N1b with LN positive. There was concern for cardiac lesion and rec cardiac MRI and PET scan after d/c with Onc but pt did not wish chemo or aggressive rx at age 79. She similarly does not
wish aggressive rx per son who is rn lactation
08/07/25 CT AP-
Evidence for pulmonary metastatic disease.
Low-density lesion within the medial segment the left lobe liver, likely representing hepatic metastatic disease.
Lymphadenopathy is present within the abdomen, in the region of the gastrohepatic ligament, in the periportal region, within the mesentery, and in the periaortic and interaortocaval regions.
Subtle low density region within the pancreatic body, most likely a metastatic lesion.
There is edema surrounding the pancreas, suggesting pancreatitis in this patient with elevated lipase value.
There is narrowing of the main portal vein and the common bile duct in the periportal region, which is likely from lymphadenopathy.
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
Impression:
Acute pancreatitis
Metastatic CRC
Subjective
Subjective
Date of Service: August 08, 2025
Tolerating diet. Minimal abd pain
Objective
Data Reviewed
Laboratory Data:
Laboratory Results
08/08/25 06:46
08/08/25 06:46
Laboratory Results
APTT Cancelled 08/07/25 14:01
Magnesium 2.1 mg/dl (1.6-2.3) 08/07/25 07:43
Total Bilirubin 0.8 mg/dl (0.2-1.3) 08/07/25 07:43
AST 33 U/L (14-36) 08/07/25 07:43
ALT 23 U/L (0-35) 08/07/25 07:43
Alkaline Phosphatase 155 U/L (38-126) H 08/07/25 07:43
Lipase 1934 U/L (23-300) H* 08/08/25 06:46
Vital Signs and I&O:
Vital Signs
Temp Pulse Resp BP Pulse Ox
98 F 98 12 127/68 92
08/08/25 07:00 08/08/25 09:09 08/08/25 07:00 08/08/25 09:09 08/08/25 07:00
I&O
08/07/25 08/08/25 08/09/25
06:59 06:59 06:59
Intake Total 1500 / 1500
Balance 1500 / 1500
Physical Exam
Physical Exam
GI: Soft, Non Distended and Non Tender
[2025-08-08 14:33] VITALS: BP 124/64
[2025-08-08] MEDS: LR IV (15:25)
[2025-08-08] MEDS: LOVENOX 40 MG SC (16:59)
[2025-08-08] MEDS: LIPITOR 40 MG PO (16:59)
--- NOTE | 2025-08-08 20:24 | CON.ONC ---
Consultation
-
Date Consultation Requested: 08/08/25
Date Consultation Performed: 08/08/25
Requesting Provider: Bharti
Performing Provider: Etienne
Reason for Consultation: relapsed CRC
Impression
Impression
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
FTT
pancreatitis
Plan
Plan
d/w son incurable status and options for chemotherapy for which she opted out of same in the adjuvant setting--discussed transitioning to hospice care as he and his daughter will assume home care
Patient History
History of Present Illness
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
CT CAP noting ricky mets/peripancreatic/portal adenopathy with hx of weight loss/PS 3 admitted with abd pain and pancreatitis.
Past-Medical/Surgical History
Coronary artery disease, hypertension, colon cancer, hyperlipidemia, coronary artery disease, NSTEMI
Patient Medication
�Medication �Instructions �Recorded �Confirmed �Last Taken �Type
atorvastatin 40 mg tablet (Lipitor) 40 mg PO QPM High Cholesterol 10/15/23 08/07/25 06/24/25 History
aspirin 81 mg chewable tablet 81 mg PO DAILY Blood Clot 11/25/24 08/07/25 06/24/25 History
Prevention/Tx
ticagrelor 90 mg tablet (Brilinta) 90 mg PO BID Blood clot 11/25/24 08/07/25 06/24/25 Rx
prevention/tx #180 tabs
metoprolol succinate 50 mg 50 mg PO DAILY Blood Pressure 06/25/25 08/07/25 06/24/25 History
tablet,extended release 24 hr
(Toprol XL)
telmisartan 40 1 tab PO DAILY Blood Pressure 06/25/25 08/07/25 06/24/25 History
mg-hydrochlorothiazide 12.5 mg
tablet
baclofen 10 mg tablet 10 mg PO TIDPRN PRN SPASMS 08/07/25 08/07/25 Unknown History
tamsulosin 0.4 mg capsule (Flomax) 0.4 mg PO BID Urinary Issue 08/07/25 08/07/25 Unknown History
ursodiol 300 mg capsule 300 mg PO BID 08/07/25 08/07/25 Unknown History
Active Medications
Generic Name Dose Route Start Last Admin
Trade Name Freq PRN Reason Stop Dose Admin
Acetaminophen 650 mg 08/07/25 15:24 08/07/25 18:20
Acetaminophen 325 Mg Tablet PO 09/04/25 15:23 650 mg
Q4HPRN PRN Administration
mild pain/BELLA/temp> 100.4F
Aspirin 81 mg 08/08/25 08:00 08/08/25 09:08
Aspirin 81 Mg Chewable Tablet PO 09/05/25 07:59 81 mg
DAILY EZ Administration
Atorvastatin Calcium 40 mg 08/07/25 18:00 08/08/25 16:59
Atorvastatin (Lipitor) 40 Mg Tablet PO 09/04/25 17:59 40 mg
QPM EZ Administration
Bisacodyl 10 mg 08/07/25 15:24
Bisacodyl 10 Mg Rectal Suppository RECTAL 09/04/25 15:23
[id number] PRN
constipation
Enoxaparin Sodium 40 mg 08/08/25 17:00 08/08/25 16:59
Enoxaparin Sodium 40 Mg/0.4 Ml Syringe SC 09/05/25 16:59 40 mg
Q12 EZ Administration
Hydromorphone HCl 0.5 mg 08/07/25 15:24 08/08/25 15:58
Hydromorphone 0.5 Mg/0.5 Ml Syringe IV 08/21/25 15:23 0.5 mg
Q4HPRN PRN Administration
severe pain
Metoprolol Succinate 50 mg 08/08/25 08:00 08/08/25 09:09
Metoprolol 50 Mg Extended Release Tablet PO 09/05/25 07:59 50 mg
DAILY EZ Administration
Polyethylene Glycol 17 grams 08/07/25 15:24
Polyethylene Glycol Powder 17 Grams Packet PO 09/04/25 15:23
DAILYPRN PRN
constipation
Senna/Docusate Sodium 1 tablet 08/07/25 15:24
Docusate W/Senna (Cydney-Colace) Tablet PO 09/04/25 15:23
BIDPRN PRN
constipation
Tamsulosin HCl 0.4 mg 08/07/25 20:00 08/08/25 09:08
Tamsulosin 0.4 Mg Capsule PO 09/04/25 19:59 0.4 mg
BID EZ Administration
Ursodiol 300 mg 08/07/25 20:00 08/08/25 09:08
Ursodiol 300 Mg Capsule PO 09/04/25 19:59 300 mg
BID EZ Administration
Review of Systems
-
History Source: Patient
All Other Systems: Reviewed and Negative
Physical Exam
-
General: Comfortable
HEENT: Moist Mucous Membranes
Cardiology: Normal Sinus Rhythm
Pulmonary: Clear
GI: Soft and Normal Bowel Sounds
Musculoskeletal: No Clubbing, No Cyanosis and No Edema
Labs
Lab Results
WBC 7.0 10^3/uL (4.8-10.8) 08/08/25 06:46
RBC 3.30 10^6/uL (4.20-5.40) L 08/08/25 06:46
Hgb 9.6 g/dL (12.0-16.0) L 08/08/25 06:46
Hct 29.6 % (37.0-47.0) L 08/08/25 06:46
MCV 89.7 fL (81.0-99.0) 08/08/25 06:46
MCH 29.1 pg (27.0-31.0) 08/08/25 06:46
MCHC 32.4 g/dL (33.0-37.0) L 08/08/25 06:46
RDW 14.1 % (11.5-14.5) 08/08/25 06:46
Plt Count 203 10^3/uL (130-400) 08/08/25 06:46
MPV 9.2 fL (7.4-10.4) 08/08/25 06:46
Abs Immat Gran (auto) 0.0 10^3/uL (0-0.05) 08/07/25 07:43
Absolute Neuts (auto) 4.9 10^3/uL (1.4-6.5) 08/07/25 07:43
Absolute Lymphs (auto) 0.6 10^3/uL (1.2-3.4) L 08/07/25 07:43
Absolute Monos (auto) 0.4 10^3/uL (0.1-0.6) 08/07/25 07:43
Absolute Eos (auto) 0.1 10^3/uL (0-0.7) 08/07/25 07:43
Absolute Basos (auto) 0.0 10^3/uL (0-0.2) 08/07/25 07:43
Immature Gran % 0.3 % (0-0.5) 08/07/25 07:43
Neutrophils % 80.4 % (42.2-75.2) H 08/07/25 07:43
Lymphocytes % 10.0 % (20.5-51.1) L 08/07/25 07:43
Monocytes % 7.3 % (1.7-9.3) 08/07/25 07:43
Eosinophils % 1.7 % (0-6) 08/07/25 07:43
Basophils % 0.3 % (0-2) 08/07/25 07:43
Creatinine 0.8 mg/dL (0.6-1.0) 08/08/25 06:46
Vital Signs
Vital Signs
Temp Pulse Resp BP Pulse Ox
97.9 F 93 16 124/64 96
08/08/25 14:33 08/08/25 14:33 08/08/25 14:33 08/08/25 14:33 08/08/25 14:33
[2025-08-08 23:39] VITALS: BP 114/55
[2025-08-09 06:00] VITALS: BMI 17.8
[2025-08-09 07:00] VITALS: BP 99/56
[2025-08-09 07:18] LABS: Hematocrit 28.0 % (37.0-47.0); Hemoglobin 9.4 g/dL (12.0-16.0); Mean Corp Hgb Conc. 33.6 g/dL (33.0-37.0); Mean Corpuscular Volume 89.2 fL (81.0-99.0); Platelet Count 217 10^3/uL (130-400); Red Cell Dist. Width 13.9 % (11.5-14.5)
[2025-08-09 07:29] LABS: Blood Urea Nitrogen 14 mg/dl (7-17); Calcium 8.5 mg/dl (8.4-10.2); Carbon Dioxide 24 mmol/L (22-30); Chloride 104 mmol/L (98-107); Estimated Creatinine Clearance 38 ml/min; Glucose 110 mg/dl (70-99); Potassium 3.4 mmol/L (3.5-5.1); Sodium 133 mmol/L (135-145); eGFR > 60.00
--- NOTE | 2025-08-09 09:34 | HOSPNOTE ---
Addendum entered by Latosha Barney, RN 08/09/25 10:26:
Son and patient are in agreement with hospice. Son will drive patient home. Local fill of dilaudid and ativan obtained. Equipment will be delivered tomorrow at sons request. CM, Attending and Primary RN updated
Original Note:
Hospice referral received. Spoke to nayeli Schofield, he will meet us at the hospital to discuss hospice at 10 am. If all are in agreement patient can go home today and sign onto hospice services. More information to follow. CM, Attending and Primary nurse
updated.
[2025-08-09] MEDS: FLOMAX 0.4 MG PO (09:44)
[2025-08-09] MEDS: LOW STRENGTH ASPIRIN 81 MG PO (09:44)
[2025-08-09] MEDS: ACTIGALL 300 MG PO (09:44)
[2025-08-09] MEDS: LOVENOX 40 MG SC (09:49)
--- NOTE | 2025-08-09 09:59 | W.PN.HOSP.TC ---
Addendum entered and electronically signed by Efrain Torrez MD 08/09/25 11:10:
I used official language line lineman service when communicating with the patient today.
Original Note:
Today's Communication/Plan
-
Discharge today to home with home hospice
Assessment / Plan
Assessment / Plan
Physical Exam
General: Well Developed, Well Nourished and No Apparent Distress
HEENT: NormoCephalic, Moist mucous membranes and Atraumatic
Respiratory: Clear
Cardiac: S1/S2 and Regular Rhythm; No Murmur or Rub
GI: Soft, Non Tender, Non Distended and Normal Bowel Sounds; No Organomegaly
Rectal: Deferred by Provider
Musculoskeletal: No Clubbing, No Cyanosis and No Edema
Skin: No Rash
Neuro: AO x 3 and Nonfocal/grossly intact
Psych: Calm
Assessment/Plan
80 y/o female, Spanish Speaker, with a past medical history significant for colon cancer and a triple coronary artery bypass graft surgery, HLOD< HTN, presented to us with abdominal for past few weeks. patient complaining of right upper quadrant pain
which is sometimes worse with eating. the pain is worse at night and not able to sleep during night.The patients appetite has significantly decreased over the past three weeks, and there is an associated unintended weight loss of approximately 4
pounds noted by the family. Despite taking acetaminophen for pain relief, he continues to experience pain, especially after eating. denied vomiting or diarrhea but complained of nausea. denied dysuria or hematuria.
# Left upper quadrant pain, weight loss concerning for acute pancreatitis
-Lipase 3041
-LR continued
-Dilaudid prn for pain
-Can advance diet to low fat
#History of invasive Colon adenocarcinoma, s/p right colectomy 10/2023
-GI consulted
-oncology consulted
-Per my [place] Text communication on 08/08/[address] Clifton, patient's son Chandu is interested in having hospice involved sooner than later and would like to take her home
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
-Start Lovenox subq while in hospital, discussed with Dr. Clifton, since patient will be home with home hospice after discharge no need for anticoagulation after discharge
-Patient also had some bleeding in her nostrils, which is another reason, together with the fact that she is going to home with home hospice, that no anticoagulation should be given after discharge
# Anemia of chronic disease
- Hemoglobin stable
- Continue to monitor
#CAD s/p IWMI and 3.0 x 38 mm Marcelo MILLI to the mid and distal OM 2 09/30/2024 and s/p robotic MIDCAB GUILLEN-LAD 11/24/2024
#Recent ER visit for chest pain 06/25/2025
#Undetectable troponin levels and atypical chest pain that was nothing like her previous NE pain
-Continue beta-benoit, statin, aspirin
-Per cardiology, can stop Brilinta, and can start anticoagulation in lieu of Brilinta
#Hypertension
- Continue metoprolol succinate 50 daily
- Monitor vital signs closely
#Hyperlipidemia
CT Imaging Findings This Hospitalization (as per radiologist's report)
Pulmonary metastatic disease.
Low-density lesion within the medial segment the left lobe liver, likely representing hepatic metastatic disease.
Lymphadenopathy is present within the abdomen, in the region of the gastrohepatic ligament, in the periportal region, within the mesentery, and in the periaortic and interaortocaval regions. Findings likely represent metastatic lymphadenopathy from
colon cancer, given the clinical history.
Subtle low density region within the pancreatic body, most likely a metastatic lesion. Primary pancreatic neoplasm would be a differential consideration, but felt to be less likely.
There is edema surrounding the pancreas, suggesting pancreatitis in this patient with elevated lipase value.
There is narrowing of the main portal vein and the common bile duct in the periportal region, which is likely from lymphadenopathy. 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
Distended gallbladder.
Small amount of fluid in the left upper quadrant adjacent to the spleen. Small amount of fluid in the right lower abdomen adjacent to the lateral and inferior aspect of the right lobe liver.
DVT Prophylaxis: Subq therapeutic Lovenox
Code Status: Full Code
More than 30 minutes spent in discharge including
Final examination of the patient
Summarizing hospital stay
Instructions for continuing care to all relevant caregivers
Preparation of discharge records, prescriptions, and referral forms
Total time spent (in minutes): 39
Anticipated Discharge: Today
Subjective/Interval History
-
Date of Service: August 09, 2025
Patient was seen and examined. She reported some blood on the tissue while cleaning her nostrils, but otherwise denied any other new symptoms or complaints.
Objective Data
-
Labs:
Laboratory Results
08/09/25
05:33
WBC 12.2 H
Hgb 9.4 L
Hct 28.0 L
Plt Count 217
Sodium 133 L
Potassium 3.4 L
Chloride 104
Carbon Dioxide 24
BUN 14
Creatinine 0.8
Glucose 110 H
Calcium 8.5
Vital Signs:
Vital Signs
Temp Pulse Resp BP Pulse Ox
98.2 F 132 18 99/56 95
08/09/25 07:00 08/09/25 07:00 08/09/25 07:00 08/09/25 07:00 08/09/25 07:00
I&O
08/08/25 08/09/25 08/10/25
06:59 06:59 06:59
Intake Total 1500 / 1500 1500 / 1500
Balance 1500 / 1500 1500 / 1500
--- NOTE | 2025-08-09 10:27 | CM ---
Addendum entered by Kati Quintero 08/09/25 10:34:
IMM explained to son at bedside; form signed @ 1032
Original Note:
Plan: Discharge to home with Home Hospice
Son will transport patient home
[2025-08-09] MEDS: TOPROL XL 50 MG PO (11:03)
--- NOTE | 2025-08-09 11:07 | PTCARENOTE ---
HR 124 BP 99/62. Notified Dr. Torrez that BP did not meet parameters for metoprolol administration. Dr. Torrez ordered EKG, IV lopressor, bolus and PO K+. Pt refused all of these treatments. website designer at bedside arranging discharge plans for
hospice today. Dr. Torrez aware of refusal and allowed pt to take PO toprol prior to D/C.
--- NOTE | 2025-08-09 11:07 | W.DCSUMMARY ---
Discharge Summary
Discharge Data
Date of Admission: 08/07/25
Date of Discharge: 08/09/25
Total time spent discharging patient (in min): 39
-
Pending Results: No
Hospital Course
80 y/o female with a past medical history significant for invasive Colon adenocarcinoma, s/p right colectomy 10/2023, CAD s/p IWMI and 3.0 x 38 mm [place] MILLI to the mid and distal OM 2 09/30/2024 s/p robotic MIDCAB GUILLEN-LAD 11/24/2024, hyperlipidemia
and hypertension, presented with abdominal pain. CT Abdomen Pelvis was done and showed pulmonary metastatic disease, liver lesion (likely hepatic metastatic disease), abdominal lymphadenopathy, lesion in the pancreas (suspected to be metastases),
pancreatitis, nonocclusive thrombus within the posterior aspect of the main portal vein, distended gallbladder, and small amounts of fluid. Patient was started on intravenous fluids for acute pancreatitis. Gastroenterology and oncology were
consulted. Cardiology was consulted to see whether patient's Brilinta could be replaced with anticoagulation, while Aspirin is continued. Cardiology recommended continuing Aspirin, Brilinta could be stopped (it had been almost 11 months since her
last cardiac stent) and replaced with anticoagulation. Oncologist discussed with patient and patient's son incurable status and options for chemotherapy for which she opted out of same in the adjuvant setting--discussed transitioning to hospice care
-- son and patient were onboard with discharging patient to home with home hospice.
Discharge Plan
-
Patient Disposition: Home with Hospice
Discharge Diagnosis/Procedures: #Left upper quadrant pain, weight loss concerning for acute pancreatitis
#History of invasive Colon adenocarcinoma, status post right colectomy 10/2023
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
#Anemia of chronic disease
#CAD s/p IWMI and 3.0 x 38 mm Marcelo MILLI to the mid and distal OM 2 09/30/2024 and s/p robotic MIDCAB GUILLEN-LAD 11/24/2024
#Recent ER visit for chest pain 06/25/2025
#Undetectable troponin levels and atypical chest pain that was nothing like her previous SC pain
#Hypertension
#Hyperlipidemia
CT Imaging Findings This Hospitalization (as per radiologist's report):
'Pulmonary metastatic disease.
Low-density lesion within the medial segment the left lobe liver, likely representing hepatic metastatic disease.
Lymphadenopathy is present within the abdomen, in the region of the gastrohepatic ligament, in the periportal region, within the mesentery, and in the periaortic and interaortocaval regions. Findings likely represent metastatic lymphadenopathy from
colon cancer, given the clinical history.
Subtle low density region within the pancreatic body, most likely a metastatic lesion. Primary pancreatic neoplasm would be a differential consideration, but felt to be less likely.
There is edema surrounding the pancreas, suggesting pancreatitis in this patient with elevated lipase value.
There is narrowing of the main portal vein and the common bile duct in the periportal region, which is likely from lymphadenopathy. 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
Distended gallbladder.
Small amount of fluid in the left upper quadrant adjacent to the spleen. Small amount of fluid in the right lower abdomen adjacent to the lateral and inferior aspect of the right lobe liver.'
Condition: Good
Diet: As tolerated and Low Fat
Activity: As tolerated
Driving Restrictions: No driving
Other Services: VN
Referrals:
UNKNOWN,NO INTERVIEW [Family Provider]
Additional Discharge Medication Instructions: Eliquis is given/sent to pharmacy for portal vein thrombosis -- but is not absolutely necessary since patient will be hospice at home -- can take it if desired by patient, family and hospice team. It is
also replacing Brilinta for patient's heart/coronary artery disease.
Brilinta stopped.
Prescriptions:
New
Eliquis 5 mg tablet
5 mg PO BID Qty: 60 1RF
Rx Instructions:
10 mg BID x7 days, followed by 5 mg BID
Continued
atorvastatin [Lipitor] 40 mg Tablet
40 mg PO QPM
aspirin 81 mg tablet,chewable
81 mg PO DAILY
metoprolol succinate [Toprol XL] 50 mg Tablet Extended Release 24 Hr
50 mg PO DAILY
tamsulosin [Flomax] 0.4 mg Capsule
0.4 mg PO BID
baclofen 10 mg Tablet
10 mg PO TIDPRN PRN (Reason: SPASMS)
ursodiol 300 mg Capsule
300 mg PO BID
Held
telmisartan-hydrochlorothiazid 40-12.5 mg Tablet
1 tab PO DAILY
Hold Instructions: Resume on 08/19/25. Resume if blood pressure high and if patient wants to continue this while on hospice
Discontinued
ticagrelor [Brilinta] 90 mg Tablet
90 mg PO BID Qty: 180 3RF
Discharge Orders:
Discharge Patient (As Directed); Ordered 08/09/25
Ordered By: Efrain Torrez
Discharge Date and Time
Discharge Date/Time: 08/09/25 11:59
Print Language: Italian
--- NOTE | 2025-08-09 11:58 | PTCARENOTE ---
IV discontinued. Discharge paperwork printed and reviewed with patient and son who verbalized understanding. Pt transported off the floor via wheelchair by RN with all belongings from the room.
== END 2025-08-09 11:59 | disposition hospice, home (50) | DRG 439 ==
LOC: 4 EAST ACU 13:56
PROVIDERS: Registered Nurse; ADMITTING PHYSICIAN Internal Medicine; ATTENDING PHYSICIAN Hospitalist; CONSULT PHYSICIAN Internal Medicine Cardiovascular Disease; CONSULT PHYSICIAN Specialist; EMERGENCY PHYSICIAN Emergency Medicine; OTHER PHYSICIAN Internal Medicine Hematology & Oncology
DX: K85.90 Acute pancreatitis without necrosis or infection, unspecified (principal); C19 Malignant neoplasm of rectosigmoid junction; C78.00 Secondary malignant neoplasm of unspecified lung; C78.7 Secondary malignant neoplasm of liver and intrahepatic bile duct; Z68.1 Body mass index [BMI] 19.9 or less, adult; D63.8 Anemia in other chronic diseases classified elsewhere; Z95.1 Presence of aortocoronary bypass graft; I25.10 Atherosclerotic heart disease of native coronary artery without angina pectoris; I10 Essential (primary) hypertension; Z79.82 Long term (current) use of aspirin; R62.7 Adult failure to thrive; R63.6 Underweight; G89.3 Neoplasm related pain (acute) (chronic); K82.8 Other specified diseases of gallbladder; K86.89 Other specified diseases of pancreas; Z79.02 Long term (current) use of antithrombotics/antiplatelets; Z79.899 Other long term (current) drug therapy; E78.5 Hyperlipidemia, unspecified
CPT/HCPCS: 74177; 80048; 80053; 81003; 82378; 83690; 83735; 85025; 85027; 93005; 96361; 96374; 96375; 99284; Q9967